=== PATIENT | male | born 1945 | race Caucasian/White ===

== ENCOUNTER 2018-01-10 04:35 | Emergency (ER) | payer MEDICARE ==
[2018-01-10] MEDS ORDERED: DIPH,PERTUS(ACELL)TETVAC-LF 0.5 ML VIAL IM ONE (04:38)
[2018-01-10 04:48] VITALS: TEMP 97.9
[2018-01-10 04:58] LABS: Glucose,Whole Blood 137 mg/dL (75-99)
[2018-01-10 05:23] LABS: Basophils % (A) 0 %; Eosinophils # (A) 0.2 k/uL (0-0.7); Eosinophils % (A) 2 %; HCT 35.9 % (39.0-53.0); HGB 11.7 gm/dL (13.0-17.5); Lymphocytes # (A) 2.4 k/uL (1.0-4.8); Lymphocytes % (A) 25 %; MCH 38.8 pg (25.0-35.0); MCHC 32.7 g/dL (31.0-37.0); MCV 118.7 fL (80.0-100.0); Macrocytosis Marked; Mean Platelet Volume 6.9; Monocytes # (A) 0.4 k/uL (0-1.0); Monocytes % (A) 4 %; Neutrophils # (A) 6.6 k/uL (1.3-7.7); Neutrophils % (A) 68 %; Platelet Count 170 k/uL (150-450); RBC 3.02 m/uL (4.30-5.90); RDW 14.5 % (11.5-15.5); WBC 9.7 k/uL (3.8-10.6)
[2018-01-10 05:34] LABS: INR 1.1 (<1.2); Partial Thromboplastin Time 25.2 sec (22.0-30.0)
[2018-01-10 05:37] LABS: ALT 38 U/L (21-72); AST 49 U/L (17-59); Alkaline Phosphatase 118 U/L (38-126); Anion Gap 12 mmol/L; Blood Urea Nitrogen 5 mg/dL (9-20); Calcium 8.1 mg/dL (8.4-10.2); Carbon Dioxide 19 mmol/L (22-30); Chloride 104 mmol/L (98-107); Glucose 121 mg/dL (74-99); Potassium 3.4 mmol/L (3.5-5.1); Sodium 135 mmol/L (137-145); Total Bilirubin 0.9 mg/dL (0.2-1.3); Total Protein 5.5 g/dL (6.3-8.2)
[2018-01-10 05:50] LABS: Alcohol 211 mg/dL
[2018-01-10 06:08] VITALS: RESP 18
--- NOTE | 2018-01-10 06:09 | CT ---
EXAM: CT Head Without Intravenous Contrast CLINICAL HISTORY: CT Reason: trauma TECHNIQUE: Axial computed tomography images of the head/brain without intravenous contrast. CTDI is 18.4 mGy and DLP is 306.9 mGy-cm. This CT exam was performed using one or more of the following dose reduction techniques: automated exposure control, adjustment of the mA and/or kV according to patient size, and/or use of iterative reconstruction technique. COMPARISON: 03/21/16 FINDINGS: No intracranial hemorrhage, abnormal intra- or extra-axial collections or parenchymal lesions are seen. There are involutional changes with prominence of the sulci, basal cisterns and ventricles. Scattered white matter hypoattenuations are present, likely from small vessel disease. The clemente-white differentiation is preserved. No evidence of mass effect, midline shift, or edema. The osseous structures are unremarkable. The visualized portions of the paranasal sinuses are clear. IMPRESSION: 1. No acute intracranial process. 2. Involutional changes with small vessel disease. EXAM: CT Cervical Spine Without Intravenous Contrast CLINICAL HISTORY: Reason: trauma TECHNIQUE: Axial computed tomography images of the cervical spine without intravenous contrast. CTDI is 57.4 mGy and DLP is 983 mGy-cm. This CT exam was performed using one or more of the following dose reduction techniques: automated exposure control, adjustment of the mA and/or kV according to patient size, and/or use of iterative reconstruction technique. COMPARISON: 03/21/16 FINDINGS: No fracture or subluxations are noted. The vertebral body heights and alignment are preserved. No prevertebral soft tissue swelling. Note is made of multilevel cervical spondylosis with varying degrees of central canal and foramina stenoses. IMPRESSION: 1. No cervical fractures. 2. No change in alignment compared to prior study
--- NOTE | 2018-01-10 06:12 | XR ---
EXAM: XR Chest, 1 View CLINICAL HISTORY: Reason: trauma TECHNIQUE: Frontal view of the chest. COMPARISON: 04/09/14 FINDINGS: Lungs: Unremarkable. No consolidation. Pleural space: Unremarkable. No pneumothorax. Heart: Unremarkable. No cardiomegaly. Mediastinum: Unremarkable. Bones/joints: Degenerative changes again noted of the glenohumeral joints bilaterally IMPRESSION: Normal chest x-ray. No change from prior study
--- NOTE | 2018-01-10 06:14 | XR ---
EXAM: XR Pelvis, 1 or 2 Views CLINICAL HISTORY: Reason: Trauma TECHNIQUE: Frontal view of the pelvis. COMPARISON: No relevant prior studies available. FINDINGS: Bones/joints: Hip arthroplasty in the right with good alignment no evidence for loosening. Degenerative changes and loss of normal joint space remodeling of the femoral head on the left. No fracture identified. Soft tissues: Unremarkable. IMPRESSION: No evidence for fracture seen on this study
[2018-01-10 06:23] LABS: Anisocytosis (M) Present
[2018-01-10 06:24] LABS: Polychromasia Present
--- NOTE | 2018-01-10 06:38 | ED ---
General Adult HPI - General Chief complaint: Fall Stated complaint: FALL,LACERATION Time Seen by Provider: 01/10/18 04:38 Source: patient, RN notes reviewed, old records reviewed Mode of arrival: EMS Limitations: no limitations - History of Present Illness Initial comments: 72-year-old male presents status post fall with head injury and scalp laceration. No loss consciousness. Patient is not on any blood thinners. He is not on any daily medications at this time. According to EMS there was significant blood loss from scalp laceration. Bleeding was controlled with compressive dressing. Patient denies any neck or back pain. No chest pain or abdominal pain. Denies any preceding symptoms prior to the fall, no palpitations or chest pain. No preceding nausea vomiting or diarrhea. Patient has no complaints other than some headache at the site of scalp laceration and head injury. - Related Data Home Medications Medication Instructions Recorded Confirmed Lisinopril [Zestril] 20 mg PO DAILY 10/04/13 03/21/16 Allergies Allergy/AdvReac Type Severity Reaction Status Date / Time No Known Allergies Allergy Verified 03/21/16 13:25 Review of Systems ROS Statement: Those systems with pertinent positive or pertinent negative responses have been documented in the HPI. ROS Other: All systems not noted in ROS Statement are negative. Past Medical History Past Medical History: CVA/TIA, Hypertension, Osteoarthritis (OA), Sleep Apnea/ CPAP/BIPAP Additional Past Medical History / Comment(s): HX TIA,HX KIDNEY STONE, NO CPAP FOR SLEEP APNEA, History of Any Multi-Drug Resistant Organisms: None Reported Past Surgical History: Tonsillectomy Additional Past Surgical History / Comment(s): LITHOTRIPSY, RT KNEE ARTHROSCOPY Past Anesthesia/Blood Transfusion Reactions: No Reported Reaction Past Psychological History: No Psychological Hx Reported Smoking Status: Never smoker Past Alcohol Use History: Occasional Past Drug Use History: None Reported - Past Family History Mother Family Medical History: Cancer General Exam Limitations: no limitations General appearance: alert, in no apparent distress Head exam: Present: normocephalic, other (4 cm scalp laceration.) ENT exam: Present: normal exam Neck exam: Present: normal inspection, full ROM. Absent: tenderness, meningismus Respiratory exam: Present: normal lung sounds bilaterally. Absent: respiratory distress, wheezes, rales Cardiovascular Exam: Present: regular rate, normal rhythm GI/Abdominal exam: Present: soft. Absent: distended, tenderness Extremities exam: Present: normal inspection, normal capillary refill. Absent: pedal edema Back exam: Present: normal inspection, full ROM. Absent: tenderness Neurological exam: Present: alert, oriented X3, CN II-XII intact. Absent: motor sensory deficit Psychiatric exam: Present: normal affect, normal mood Skin exam: Present: warm, dry. Absent: cyanosis, diaphoretic Course Vital Signs 01/10/18 01/10/18 04:44 06:00 Temperature 97.9 F Pulse Rate 93 91 Respiratory 16 18 Rate Blood Pressure 117/62 117/62 O2 Sat by Pulse 96 95 Oximetry EKG Findings - EKG Comments: EKG Findings:: EKG normal sinus rhythm, rate of 88, MI interval 176, QRS duration 68, QTC 433, no ST segment elevation or depression Procedures - Laceration Laceration #1 Consent Obtained: verbal consent Time Out Performed: Yes Indication: laceration Site: scalp Size (cm): 4 Description: linear, clean Pre-repair: irrigated extensively, deep structures intact Type of Sutures: other (goldy) Size of Sutures: other (Goldy) Number of Sutures: 9 Technique: simple, interrupted Patient Tolerated Procedure: well Medical Decision Making - Medical Decision Making 72-year-old male presents with head injury, scalp laceration and trip and fall. Scalp laceration is repaired with 9 goldy. No bleeding. Patient is clinically intoxicated, serum alcohol 211, this is likely the reason for fall. Head CT is obtained, there is chronic changes with no acute intracranial hemorrhage. CT cervical spine is negative for fracture or subluxation. X-ray of the chest and pelvis are obtained which are negative for any acute cardiopulmonary process or fracture dislocation in the pelvis. Normal white blood cell count, stable hemoglobin. Patient will return for staple removal in approximately 14 days. He will be discharged home at this time, he is calling a friend for a ride. He was brought in by EMS and is not driving. - Lab Data Result diagrams: 01/10/18 05:00 01/10/18 05:00 Lab Results 01/10/18 01/10/18 01/10/18 Range/Units 04:46 05:00 05:00 WBC 9.7 (3.8-10.6) k/uL RBC 3.02 L (4.30-5.90) m/uL Hgb 11.7 L (13.0-17.5) gm/dL Hct 35.9 L (39.0-53.0) % MCV 118.7 H (80.0-100.0) fL MCH 38.8 H (25.0-35.0) pg MCHC 32.7 (31.0-37.0) g/dL RDW 14.5 (11.5-15.5) % Plt Count 170 (150-450) k/uL Neutrophils % 68 % Lymphocytes % 25 % Monocytes % 4 % Eosinophils % 2 % Basophils % 0 % Neutrophils # 6.6 (1.3-7.7) k/uL Lymphocytes # 2.4 (1.0-4.8) k/uL Monocytes # 0.4 (0-1.0) k/uL Eosinophils # 0.2 (0-0.7) k/uL Basophils # 0.0 (0-0.2) k/uL Manual Slide Review Performed Polychromasia Present Anisocytosis (manual) Present Macrocytosis Marked PT (9.0-12.0) sec INR (<1.2) APTT (22.0-30.0) sec Sodium 135 L (137-145) mmol/L Potassium 3.4 L (3.5-5.1) mmol/L Chloride 104 (98-107) mmol/L Carbon Dioxide 19 L (22-30) mmol/L Anion Gap 12 mmol/L BUN 5 L (9-20) mg/dL Creatinine 0.60 L (0.66-1.25) mg/dL Est GFR (CKD-EPI)AfAm >90 (>60 ml/min/1.73 sqM) Est GFR (CKD-EPI)NonAf >90 (>60 ml/min/1.73 sqM) Glucose 121 H (74-99) mg/dL POC Glucose (mg/dL) 137 H (75-99) mg/dL POC Glu Critical Care Physician ID Chito Rucker Calcium 8.1 L (8.4-10.2) mg/dL Total Bilirubin 0.9 (0.2-1.3) mg/dL AST 49 (17-59) U/L ALT 38 (21-72) U/L Alkaline Phosphatase 118 (38-126) U/L Troponin I (0.000-0.034) ng/mL Total Protein 5.5 L (6.3-8.2) g/dL Albumin 3.0 L (3.5-5.0) g/dL Serum Alcohol 211 mg/dL Blood Type Blood Type Recheck Antibody Screen Spec Expiration Date 01/10/18 01/10/18 01/10/18 Range/Units 05:00 05:00 05:15 WBC (3.8-10.6) k/uL RBC (4.30-5.90) m/uL Hgb (13.0-17.5) gm/dL Hct (39.0-53.0) % MCV (80.0-100.0) fL MCH (25.0-35.0) pg MCHC (31.0-37.0) g/dL RDW (11.5-15.5) % Plt Count (150-450) k/uL Neutrophils % % Lymphocytes % % Monocytes % % Eosinophils % % Basophils % % Neutrophils # (1.3-7.7) k/uL Lymphocytes # (1.0-4.8) k/uL Monocytes # (0-1.0) k/uL Eosinophils # (0-0.7) k/uL Basophils # (0-0.2) k/uL Manual Slide Review Polychromasia Anisocytosis (manual) Macrocytosis PT 11.0 (9.0-12.0) sec INR 1.1 (<1.2) APTT 25.2 (22.0-30.0) sec Sodium (137-145) mmol/L Potassium (3.5-5.1) mmol/L Chloride (98-107) mmol/L Carbon Dioxide (22-30) mmol/L Anion Gap mmol/L BUN (9-20) mg/dL Creatinine (0.66-1.25) mg/dL Est GFR (CKD-EPI)AfAm (>60 ml/min/1.73 sqM) Est GFR (CKD-EPI)NonAf (>60 ml/min/1.73 sqM) Glucose (74-99) mg/dL POC Glucose (mg/dL) (75-99) mg/dL POC Glu Critical Care Physician ID Calcium (8.4-10.2) mg/dL Total Bilirubin (0.2-1.3) mg/dL AST (17-59) U/L ALT (21-72) U/L Alkaline Phosphatase (38-126) U/L Troponin I <0.012 (0.000-0.034) ng/mL Total Protein (6.3-8.2) g/dL Albumin (3.5-5.0) g/dL Serum Alcohol mg/dL Blood Type O Positive Blood Type Recheck No Antibody Screen NEGATIVE Spec Expiration Date 01/13/2018 - 2315 Disposition Clinical Impression: Fall, Closed head injury, Scalp laceration Disposition: HOME SELF-CARE Condition: Fair Instructions: Staple Care (ED), Concussion (ED), Laceration (ED) Is patient prescribed a controlled substance at d/c from ED?: No Referrals: Shell Salamanca MD [Primary Care Provider] - 1-2 days Time of Disposition: 06:58
[2018-01-10 07:44] VITALS: BP 116/60; PULSE 82
== END 2018-01-10 07:55 | disposition home or self-care (01) ==
LOC: EC 04:35
DX: S01.01XA Laceration without foreign body of scalp, initial encounter (principal); F10.120 Alcohol abuse with intoxication, uncomplicated; I10 Essential (primary) hypertension; Z86.73 Personal history of transient ischemic attack (TIA), and cerebral infarction without residual deficits; Z23 Encounter for immunization; Z98.890 Other specified postprocedural states; Z79.899 Other long term (current) drug therapy; W01.0XXA Fall on same level from slipping, tripping and stumbling without subsequent striking against object, initial encounter; Y92.009 Unspecified place in unspecified non-institutional (private) residence as the place of occurrence of the external cause; Y90.7 Blood alcohol level of 200-239 mg/100 ml
CPT/HCPCS: 36415; 93005; 86900; 86901; 80053; 84484; 85025; 85610; 85730; 86850; 72170; 71045; 72125; 70450; 90715; 99284; 12002; 90471; G0480; 80320

== ENCOUNTER → 2018-11-21 | Outpatient (CLI) | payer MEDICARE ==
[2018-11-21 11:34] LABS: African American GFR (CKD) >90 (>60 ml/min/1.73 sqM); Blood Urea Nitrogen 10 mg/dL (9-20)
--- NOTE | 2018-11-21 13:35 | CT ---
EXAMINATION TYPE: CT abdomen pelvis w con DATE OF EXAM: 11/21/2018 COMPARISON: 06/15/2013 HISTORY: Abdominal distention and edema. CT DLP: 1945.5 mGycm Automated exposure control for dose reduction was used. CONTRAST: CT scan of the abdomen pelvis is performed with IV Contrast, patient injected with 100 mL of Isovue M 300. FINDINGS- LUNG BASES-there is a small right pleural effusion and tiny left pleural effusion with subsegmental c onsolidation likely in the basis of compressive atelectasis.. LIVER/GB-liver somewhat nodular and heterogeneous correlate for hepatocellular disease. Cholelithiasi s. PANCREAS- No gross abnormality is seen. Fat attenuation is noted in the region of the pancreatic hea d likely representing a lipoma measuring -80 Hounsfield units and retrospectively stable from the tobin or exam. Measures 2.6 cm. SPLEEN- No gross abnormality is seen. ADRENALS-there is an indeterminate 1.7 cm right adrenal nodule stable dating back to 2013 and therefo re likely related to adenoma.. KIDNEYS/BLADDER- no hydronephrosis or nephrolithiasis. Cortical thinning is noted. BOWEL-bowel gas pattern nonspecific. Diverticulosis of the colon noted.. LYMPH NODES- No greater than 1cm abdominal or pelvic lymph nodes areappreciated. OSSEOUS STRUCTURES-degenerative change of the spine and arthropathy of the hips. Grade 1 anterolisthe sis L4 on L5. Multilevel facet arthropathy noted. Chronic rib deformities involving the right rib cag e anteriorly suggest remote trauma. OTHER- aorta of normal caliber with atherosclerotic changes. There is a moderate amount of ascites. Mild diffuse subcutaneous edema noted. IMPRESSION- 1. Moderate amount of ascites correlate for hepatocellular disease or chronic medical renal disease. 2. Colonic diverticulosis. 3. Small right and tiny left pleural effusion with suspected compressive atelectasis. 4. Cholelithiasis. Recommend ultrasound to assess gallbladder. 5. Cortical thinning of the kidneys correlate for chronic medical renal disease.
== END | disposition home or self-care (01) ==
LOC: RADCTMAIN 10:54
PROVIDERS: ATTEND Family Medicine
DX: K80.20 Calculus of gallbladder without cholecystitis without obstruction (principal); K57.30 Diverticulosis of large intestine without perforation or abscess without bleeding; R18.8 Other ascites; R06.00 Dyspnea, unspecified
CPT/HCPCS: 82565; 84520; 74177; 36415; Q9967

== ENCOUNTER 2018-12-05 16:31 | Inpatient (IN) | payer MEDICARE ==
[2018-12-05] MEDS ORDERED: SODIUM CHLORIDE 0.9% 500 ML 500 ML IV STA (18:26)
[2018-12-05] MEDS ORDERED: SODIUM CHLORIDE 0.9% 1,000 ML IV ONE (18:26)
[2018-12-05] MEDS ORDERED: SODIUM CHLORIDE 0.9% 1,000 ML IV STA (18:26)
--- NOTE | 2018-12-05 18:26 | ED ---
Recheck HPI - General Chief Complaint: Recheck/Abnormal Lab/Rx Stated Complaint: abn labs post paracentesis Time Seen by Provider: 12/05/18 16:52 Source: patient, RN notes reviewed, old records reviewed Mode of arrival: ambulatory - History of Present Illness Initial Comments: This is a 73-year-old male the ER for evaluation presents today for evaluation of abnormal outpatient lab test. A she does admit to significant swelling also paracentesis, patient with a paracentesis had lab values trauma for significant normal. He denies current complaints. MD Complaint: abnormal lab (Significant abnormal lab values) -: unknown Returns Today for: Called Because of Abnormal Lab/Test Symptoms Since Prior Visit: no new symptoms Context: called for abnormal lab result Associated Symptoms: none - Related Data Home Medications Medication Instructions Recorded Confirmed Levothyroxine Sodium [Synthroid] 50 mcg PO DAILY 11/23/18 12/05/18 Furosemide [Lasix] 60 mg PO BID 12/05/18 12/05/18 Loperamide HCl [Imodium A-D] 2 - 4 mg PO QID PRN 12/05/18 12/05/18 Ondansetron HCl [Zofran] 8 mg PO Q8H PRN 12/05/18 12/05/18 Spironolactone 100 mg PO DAILY 12/05/18 12/05/18 Allergies Allergy/AdvReac Type Severity Reaction Status Date / Time No Known Allergies Allergy Verified 12/05/18 17:40 Review of Systems ROS Statement: Those systems with pertinent positive or pertinent negative responses have been documented in the HPI. ROS Other: All systems not noted in ROS Statement are negative. Past Medical History Past Medical History: CVA/TIA, Hypertension, Osteoarthritis (OA), Sleep Apnea/CPAP/BIPAP, Thyroid Disorder Additional Past Medical History / Comment(s): HX TIA,HX KIDNEY STONE, NO CPAP FOR SLEEP APNEA, History of Any Multi-Drug Resistant Organisms: None Reported Past Surgical History: Tonsillectomy Additional Past Surgical History / Comment(s): LITHOTRIPSY, RT KNEE ARTHROSCOPY, right hip replacement, paracentesis Past Anesthesia/Blood Transfusion Reactions: No Reported Reaction Past Psychological History: No Psychological Hx Reported Smoking Status: Never smoker Past Alcohol Use History: Occasional Past Drug Use History: None Reported - Past Family History Mother Family Medical History: Cancer Additional Family Medical History / Comment(s): colon General Exam - General Exam Comments Initial Comments: Anasarca, ascites General appearance: alert, in no apparent distress Head exam: Present: atraumatic, normocephalic, normal inspection Eye exam: Present: normal appearance, PERRL, EOMI. Absent: scleral icterus, conjunctival injection, periorbital swelling ENT exam: Present: normal exam, mucous membranes moist Neck exam: Present: normal inspection. Absent: tenderness, meningismus, lymphadenopathy Respiratory exam: Present: normal lung sounds bilaterally. Absent: respiratory distress, wheezes, rales, rhonchi, stridor Cardiovascular Exam: Present: regular rate, normal rhythm, normal heart sounds. Absent: systolic murmur, diastolic murmur, rubs, gallop, clicks GI/Abdominal exam: Present: soft, normal bowel sounds. Absent: distended, tenderness, guarding, rebound, rigid Extremities exam: Present: normal inspection, full ROM, normal capillary refill. Absent: tenderness, pedal edema, joint swelling, calf tenderness Back exam: Present: normal inspection Neurological exam: Present: alert, oriented X3, CN II-XII intact Psychiatric exam: Present: normal affect, normal mood Skin exam: Present: warm, dry, intact, normal color. Absent: rash Course Vital Signs 12/05/18 16:55 Temperature 97.5 F L Pulse Rate 88 Respiratory 19 Rate Blood Pressure 105/55 O2 Sat by Pulse 100 Oximetry - Reevaluation(s) Reevaluation #1: 12/05/18 18:25 record including prior lab values are reviewed Reevaluation #2: 12/05/18 18:25 Patient remains asymptomatic Medical Decision Making - Medical Decision Making 73 male the ER for evaluation abnormal lab values, patient has significant anasarca and ascites and renal failure. We'll admit for adequate hydration, nephrology evaluation Disposition Clinical Impression: Ascites, Acute renal failure Disposition: ADMITTED IP TO THIS HOSP Condition: Fair Is patient prescribed a controlled substance at d/c from ED?: No Referrals: Shell Salamanca MD [Primary Care Provider] - 1-2 days
[2018-12-06 06:30] VITALS: BMI 29.0
[2018-12-06] MEDS ORDERED: ONDANSETRON 4 MG TAB PO PRN (08:13)
[2018-12-06] MEDS ORDERED: LOPERAMIDE 2 MG CAP PO PRN (08:13)
[2018-12-06] MEDS ORDERED: ENOXAPARIN 40 MG/0.4 ML SYRINGE SQ SCH (09:00)
--- NOTE | 2018-12-06 09:53 | P.NPCON ---
History of Present Illness - Reason for Consult acute renal failure - History of Present Illness Reason for consultation: Acute kidney injury History of present illness: Patient is a 73-year-old male seen in renal consultation for acute kidney injury. Patient's baseline creatinine is near 1. Patient went for a paracentesis yesterday and had about 8 L drained. He also had blood work done which revealed patient was in acute renal failure and was advised to go to the hospital. His creatinine was up to 4.26. No proteinuria noted on UA. Patient states he's had progressive swelling in his abdomen as well as lower extremities does been worsening over the last few weeks. He was started on diuretics by his primary care physician and states that his dose of Lasix was increased about a week ago. He denies any hematuria or dysuria. Denies use of nonsteroidals. No vomiting or diarrhea. Oral intake has been fair. No history of diabetes. Denies family history of renal disease. Patient did receive albumin with paracentesis yesterday but I'm not sure as to the dose. Patient did receive 1 L fluid bolus of normal saline and is currently maintained on normal saline at 50 mL an hour. Labs from this morning are pending. Vital signs are stable. General: The patient appeared well nourished and normally developed. HEENT: Head exam is unremarkable. Neck is without jugular venous distension. LUNGS: Lungs are clear to auscultation and percussion. Breath sounds decreased. HEART: Rate and Rhythm are regular. First and second heart sounds normal. No murmurs, rubs or gallops. ABDOMEN: Abdominal exam reveals normal bowel sounds. Distention noted. EXTREMITITES: 2+ edema. Past Medical History Past Medical History: CVA/TIA, Hypertension, Osteoarthritis (OA), Sleep Apnea/CPAP/BIPAP, Thyroid Disorder Additional Past Medical History / Comment(s): HX TIA,HX KIDNEY STONE, NO CPAP FOR SLEEP APNEA, History of Any Multi-Drug Resistant Organisms: None Reported Past Surgical History: Tonsillectomy Additional Past Surgical History / Comment(s): LITHOTRIPSY, RT KNEE ARTHROSCOPY, right hip replacement, paracentesis Past Anesthesia/Blood Transfusion Reactions: No Reported Reaction Past Psychological History: No Psychological Hx Reported Smoking Status: Never smoker Past Alcohol Use History: Occasional Past Drug Use History: None Reported - Past Family History Mother Family Medical History: Cancer Additional Family Medical History / Comment(s): colon Medications and Allergies Home Medications Medication Instructions Recorded Confirmed Type Levothyroxine Sodium [Synthroid] 50 mcg PO DAILY 11/23/18 12/05/18 History Furosemide [Lasix] 60 mg PO BID 12/05/18 12/05/18 History Loperamide HCl [Imodium A-D] 2 - 4 mg PO QID PRN 12/05/18 12/05/18 History Ondansetron HCl [Zofran] 8 mg PO Q8H PRN 12/05/18 12/05/18 History Spironolactone 100 mg PO DAILY 12/05/18 12/05/18 History Allergies Allergy/AdvReac Type Severity Reaction Status Date / Time No Known Allergies Allergy Verified 12/05/18 17:40 Physical Exam Vitals: Vital Signs Temp Pulse Pulse Resp BP BP Pulse Ox 12/06/18 04:32 97.4 F L 72 18 105/65 94 L 12/06/18 00:00 18 12/05/18 23:17 97.9 F 83 18 115/60 97 12/05/18 20:57 98.1 F 71 20 109/58 97 12/05/18 20:00 77 22 100/57 96 12/05/18 19:00 76 22 101/57 99 12/05/18 18:41 78 18 111/54 98 12/05/18 16:55 97.5 F L 88 19 105/55 100 Intake and Output 12/05/18 12/06/18 12/06/18 22:59 06:59 14:59 Intake Total 200 Balance 200 Intake: Intake, IV Titration 200 Amount Sodium Chloride 0.9% 1, 200 000 ml @ 100 mls/hr IV . Q10H ONE Rx#:[id number] Other: Voiding Method Toilet # Voids 1 # Bowel Movements 1 3 Weight 84.141 kg Assessment and Plan Plan: Assessment: 1. Acute kidney injury mostly prerenal secondary to diuresis and large volume paracentesis. Creatinine 4.26 as of yesterday. Baseline creatinine near 1. No evidence of hydronephrosis noted on CAT scan done on November 21, 2018. No proteinuria on UA. 2. Ascites. Status post paracentesis on December 05 for nearly 8 L drained. ?Etiology liver disease. 3. Volume overload. 4. Metabolic acidosis secondary to acute kidney injury. 5. History of nephrolithiasis status post lithotripsy in 2016. Plan: Hep-Lock IV fluids. Start IV Lasix 60 mg twice daily. IV albumin 25 g 2 doses today. Strict I's and O's. Check renal ultrasound. Avoid nephrotoxins. Repeat electrolytes in the morning. Thank you for the consultation. I will continue to follow the patient with you during his hospital stay.
[2018-12-06] MEDS: LEVOTHYROXINE 50 MCG TAB PO SCH (09:55)
[2018-12-06] MEDS: FAMOTIDINE 20 MG TAB PO SCH (09:55)
--- NOTE | 2018-12-06 10:00 | P.HPIM ---
History of Present Illness H&P Date: 12/06/18 This is a 73-year-old male patient of Dr. Salamanca. Patient presented yesterday 12/05/2018 for planned paracentesis was found to have abnormal lab. Patient has a history of ascites and underwent paracentesis yesterday with 8.6 L off. Patient's creatinine was found to be significantly elevated at 4.26 which patient was 2.4 on 11/30/2018. Blood also elevated at 42. Patient reports he's had decreased appetite over the past 4 weeks along with some nausea. Patient denies recent illness or fevers. Patient reports adequate urine output. Patient has a past medical history of CVA, hypertension, osteoarthritis, sleep apnea and thyroid disorder. Patient noted to have increased edema to lower ext remities and right upper extremity venous Doppler will be ordered to rule out DVT. Nephrology services consulted for acute kidney injury. Patient started on IV Lasix per nephrology. GI services also consulted for recent paracentesis due to ascites. This time patient denies chest pain or shortness of breath. Patient denies nausea vomiting or diarrhea. Patient denies any urinary burning or frequency. Review of Systems Please refer to HPI otherwise unremarkable Past Medical History Past Medical History: CVA/TIA, Hypertension, Osteoarthritis (OA), Sleep Apnea/CPAP/BIPAP, Thyroid Disorder Additional Past Medical History / Comment(s): HX TIA,HX KIDNEY STONE, NO CPAP FOR SLEEP APNEA, History of Any Multi-Drug Resistant Organisms: None Reported Past Surgical History: Tonsillectomy Additional Past Surgical History / Comment(s): LITHOTRIPSY, RT KNEE ARTHROSCOPY, right hip replacement, paracentesis Past Anesthesia/Blood Transfusion Reactions: No Reported Reaction Past Psychological History: No Psychological Hx Reported Smoking Status: Never smoker Past Alcohol Use History: Occasional Past Drug Use History: None Reported - Past Family History Mother Family Medical History: Cancer Additional Family Medical History / Comment(s): colon Medications and Allergies Home Medications Medication Instructions Recorded Confirmed Type Levothyroxine Sodium [Synthroid] 50 mcg PO DAILY 11/23/18 12/05/18 History Furosemide [Lasix] 60 mg PO BID 12/05/18 12/05/18 History Loperamide HCl [Imodium A-D] 2 - 4 mg PO QID PRN 12/05/18 12/05/18 History Ondansetron HCl [Zofran] 8 mg PO Q8H PRN 12/05/18 12/05/18 History Spironolactone 100 mg PO DAILY 12/05/18 12/05/18 History Allergies Allergy/AdvReac Type Severity Reaction Status Date / Time No Known Allergies Allergy Verified 12/05/18 17:40 Physical Exam Vitals: Vital Signs Temp Pulse Pulse Resp BP BP Pulse Ox 12/06/18 04:32 97.4 F L 72 18 105/65 94 L 12/06/18 00:00 18 12/05/18 23:17 97.9 F 83 18 115/60 97 12/05/18 20:57 98.1 F 71 20 109/58 97 12/05/18 20:00 77 22 100/57 96 12/05/18 19:00 76 22 101/57 99 12/05/18 18:41 78 18 111/54 98 12/05/18 16:55 97.5 F L 88 19 105/55 100 Intake and Output 12/05/18 12/06/18 12/06/18 22:59 06:59 14:59 Intake Total 200 Balance 200 Intake: Intake, IV Titration 200 Amount Sodium Chloride 0.9% 1, 200 000 ml @ 100 mls/hr IV . Q10H ONE Rx#:[id number] Other: Voiding Method Toilet # Voids 1 # Bowel Movements 1 3 Weight 84.141 kg Head normocephalic Neck supple Lungs clear to auscultation bilaterally no wheezing or crackles Heart regular rate and rhythm S1-S2, no rub or gallop Abdomen is soft and rounded nontender to palpation Extremities +2 nonpitting edema bilateral lower extremities. +1 edema to right upper extremity with erythema Neuro alert and orientated to 3 Thrombosis Risk Factor Assmnt - Choose All That Apply Any of the Below Risk Factors Present?: Yes Each Factor Represents 1 point: Obesity (BMI >25), Swollen legs (current) Other Risk Factors: Yes Each Risk Factor Represents 2 Points: Age 61-74 years Thrombosis Risk Factor Assessment Total Risk Factor Score: 4 Thrombosis Risk Factor Assessment Level: Moderate Risk Assessment and Plan Assessment: 1. Acute kidney injury. Creatinine elevated at 4.26 and bun 42. Baseline creatinine appears to be 1. Nephrology services have been consulted we'll continue to monitor. Per nephrology Lasix 60 mg twice daily has been ordered. IV albumin 25 g 2 doses ordered. Renal ultrasound ordered. Home medications of Lasix and Aldactone on hold 2. Abdominal ascites with recent paracentesis. Patient underwent paracentesis on 12/05/2018 with 8.7 L removed. GI services have been consulted 3. Lower extremity edema with erythema. Will order venous Doppler to rule out DVT 4. History of nephrolithiasis status post lithotripsy in 2016 5. History of essential hypertension 6. History of CVA 7. History of sleep apnea 8. History of hypothyroidism. Home meds resumed DVT prophylaxis Lovenox. GI prophylaxis Protonix Nephrology GI service consulted Repeat labs ordered Renal ultrasound ordered Venous Doppler ordered Time with Patient: Greater than 30 (Greater than 60% of the total time spent in counseling and coordination of care. I performed an examination of the patient and discussed their management with the Nurse Practitioner. I have reviewed the Nurse Practitioner's notes and agree with the documented findings and plan of care)
[2018-12-06 10:21] LABS: ALT 31 U/L (21-72); AST 63 U/L (17-59); African American GFR (CKD) 21 (>60 ml/min/1.73 sqM); Albumin 2.1 g/dL (3.5-5.0); Alkaline Phosphatase 157 U/L (38-126); Amylase <30 U/L (30-110); Anion Gap 9 mmol/L; Blood Urea Nitrogen 39 mg/dL (9-20); Calcium 7.7 mg/dL (8.4-10.2); Carbon Dioxide 19 mmol/L (22-30); Chloride 106 mmol/L (98-107); Glucose 105 mg/dL (74-99); Non-African American GFR(CKD) 18 (>60 ml/min/1.73 sqM); Sodium 134 mmol/L (137-145); Total Bilirubin 2.2 mg/dL (0.2-1.3); Total Protein 5.2 g/dL (6.3-8.2)
[2018-12-06 10:26] LABS: Potassium 2.7 mmol/L (3.5-5.1)
[2018-12-06] MEDS ORDERED: Potassium Replacement Protocol 1 EACH MISC MISCELLANE PRN (10:29)
[2018-12-06 10:45] LABS: Basophils % (A) 0 %; Eosinophils # (A) 0.2 k/uL (0-0.7); Eosinophils % (A) 1 %; HGB 11.5 gm/dL (13.0-17.5); Lymphocytes # (A) 1.2 k/uL (1.0-4.8); Lymphocytes % (A) 7 %; MCH 36.6 pg (25.0-35.0); MCHC 32.8 g/dL (31.0-37.0); MCV 111.5 fL (80.0-100.0); Macrocytosis Marked; Mean Platelet Volume 7.7; Monocytes # (A) 0.6 k/uL (0-1.0); Monocytes % (A) 4 %; Neutrophils # (A) 14.5 k/uL (1.3-7.7); Neutrophils % (A) 87 %; Platelet Count 114 k/uL (150-450); RBC 3.14 m/uL (4.30-5.90); RDW 13.1 % (11.5-15.5); WBC 16.6 k/uL (3.8-10.6)
[2018-12-06] MEDS: ALBUMIN HUMAN 25% 50 ML in EMPTY BAG 1 BAG IVPB SCH ×2 (11:34→21:38)
[2018-12-06] MEDS: FUROSEMIDE 10 MG/ML 10 ML VIAL IV SCH ×2 (11:37→21:38)
[2018-12-06] MEDS: POTASSIUM CHLORIDE ER 20 MEQ TAB.ER PO SCH ×3 (11:41→14:29)
[2018-12-06 12:39] LABS: Poikilocytosis (M) Present
--- NOTE | 2018-12-06 12:52 | US ---
EXAMINATION TYPE: US venous doppler duplex UE RT DATE OF EXAM: 12/06/2018 COMPARISON: NONE CLINICAL HISTORY: increased edema and erythema. Patient's daughter stated poor IV perfusion x days, t hen extravasation yesterday SIDE PERFORMED: right Right Arm: Negative for DVT. Right arm is positive for SVT in small diameter upper Basilic Vein as no compression or color flow is present as visualized. Edema/fluid areas are seen in multiple areas of right arm and skin redness and swelling. Grayscale, color doppler, spectral doppler imaging performed of the deep veins of the bilateral lower extremities. There is normal flow, compressibility, vascular waveforms. IMPRESSION: No ultrasound evidence for acute DVT in the right upper extremity. Moderate diffuse subcu taneous edema seen at level of forearm. There is acute superficial venous thrombosis involving the ri ght basilic vein confirmed.
--- NOTE | 2018-12-06 12:54 | US ---
EXAMINATION TYPE: US venous doppler duplex LE BI DATE OF EXAM: 12/06/2018 12:02 PM COMPARISON: Right lower extremity venous ultrasound April 11, 2014 CLINICAL HISTORY: increase swelling and redness, ascites SIDE PERFORMED: bilateral TECHNIQUE: The lower extremity deep venous system is examined utilizing real time linear array sonog dustin with graded compression, doppler sonography and color-flow sonography. VESSELS IMAGED: Common Femoral Vein Deep Femoral Vein Greater Saphenous Vein * Femoral Vein Popliteal Vein Small Saphenous Vein * Proximal Calf Veins: left proximal calf veins not seen due to edema present and patient's non relaxed leg position (* superficial vessels) Right Leg: Negative for DVT Left Leg: Negative for DVT Grayscale, color doppler, spectral doppler imaging performed of the deep veins of the bilateral lower extremities. There is normal flow, compressibility, vascular waveforms. IMPRESSION: No ultrasound evidence for acute DVT in either lower extremity. Fairly moderate subcutan eous edema is seen bilaterally below the level of the knees.
--- NOTE | 2018-12-06 13:37 | US ---
EXAMINATION TYPE: US kidneys/renal and bladder DATE OF EXAM: 12/06/2018 COMPARISON: CT 02/02/2019 CLINICAL HISTORY: liz. Cortical thinning is noted by CT; ascites EXAM MEASUREMENTS: Right Kidney: 8.9 x 5.1 x 4.4 cm Left Kidney: 11.5 x 6.6 x 6.3 cm Post Void Residual Volume: not assessed as patient has indwelling bladder catheter. Right Kidney: No hydronephrosis or masses seen; small for size Left Kidney: No hydronephrosis or masses seen; crescent shaped hypoechoic area adjacent to lower irina ex noted as sonographic "sweat sign" suggestive of renal failure. Bladder: indwelling urinary bladder catheter is present. Incidental findings of shadowing gallstone(s) are noted with abnormally thickened gallbladder wall. There is no evidence for hydronephrosis at this point in time. No nephrolithiasis is seen. No jeny s are identified on images saved. IMPRESSION: Cortical thinning with small size kidneys consistent with product of chronic medical viola l disease which is more prominent right kidney versus left kidney. No hydronephrosis bilaterally. Kavin reyez correlate with recent CT.
[2018-12-06 18:27] LABS: Appearance,Urine Cloudy (Clear); Bacteria,Urine Rare /hpf; Bilirubin,Urine Negative (Negative); Blood,Urine Large (Negative); Color,Urine Yellow; Glucose,Urine (UA) Negative (Negative); Hyaline Casts,Urine 14 /lpf (0-2); Ketones,Urine Negative (Negative); Leukocyte Esterase,Urine Large (Negative); Mucus,Urine Rare /hpf; Nitrite,Urine Negative (Negative); PH, Urine 5.5 (5.0-8.0); Protein,Urine Trace (Negative); RBC,Urine 137 /hpf (0-5); Specific Gravity,Urine 1.011 (1.001-1.035); Squamous Epithelial Cell,Urine 1 /hpf (0-4); Urobilinogen,Urine <2.0 mg/dL (<2.0); WBC,Urine >182 /hpf (0-5)
--- NOTE | 2018-12-06 18:32 | XR ---
EXAMINATION TYPE: XR chest 2V DATE OF EXAM: 12/06/2018 COMPARISON: Prior chest x-ray 01/10/2018 CT 11/21/2018 HISTORY: Leukocytosis and abnormal prior imaging TECHNIQUE: Frontal and lateral views of the chest are obtained. FINDINGS: No evident pneumothorax. Heart size is stable. Patchy density present at the right lung ba se, there is blunting the posterior costophrenic angles. Arthropathy noted within the shoulders. Natalie ent is rotated. IMPRESSION: Basilar atelectasis and probable associated right greater than left pleural effusion.
--- NOTE | 2018-12-06 21:25 | P.CONS ---
History of Present Illness - Reason for Consult Consult date: 12/06/18 Ascites, cirrhosis Requesting physician: Eric Spaulding - Chief Complaint Abnormal labs - History of Present Illness 73-year-old male with a medical history significant for CVA, hypertension, osteoarthritis, obstructive sleep apnea and recent diagnosis of decompensated cirrhosis who presents to the hospital for further evaluation after outpatient laboratory draw prior to paracentesis was found to be abnormal. The patient had been scheduled for paracentesis for which she had 8.6 L removed prior to presentation and for which he received albumin. Laboratory draw at that time was significant for a creatinine of 4.26 which was elevated from previous creatinine of 2.4 on 11/30/2018. The patient reports decreased appetite and nausea over the past 4 weeks. He does report some improvement in lower extremity swelling after diuretic therapy was initiated continued to have abdominal distention. Initially he was seen in the gastroenterology clinic a few weeks ago at which time he presented for evaluation of new onset ascites. At that time the patient denied alcohol abuse and several serologic workup was ordered. Patient had been started on diuretic therapy which was titrated and labs were ordered for the patient to have follow-up blood work for monitoring of kidney function and creatinine as well as electrolytes. Since that time it appears as diuretic therapy has been increased further with patient's home meds including a dose of Aldactone of 100 mg daily and Lasix 60 mg daily. Patient has not been seen in the clinic since that time. Currently he is seen lying in bed reporting that her appetite is somewhat improved after paracentesis. Review of Systems REVIEW OF SYSTEMS: CONSTITUTIONAL: Denies any fevers, chills, but does report fatigue. CARDIOVASCULAR: Denies any chest pain, palpitations high or low blood pressures RESPIRATORY: Denies any hemoptysis or cough, but does report some shortness of breath. GENITOURINARY: No dysuria or hematuria. MUSCULOSKELETAL: No weakness reported. SKIN: Denies any new rashes or lesions, jaundice or pallor. PSYCHIATRIC: Denies any new depression. NEUROLOGY: Denies headache, denies any new focal deficits. EARS/NOSE/THROAT: No recent hearing change, congestion, nasal discharge or sore throat. EYES: No pain in eyes, discharge or change in vision. GASTROINTESTINAL: As per HPI. Past Medical History Past Medical History: CVA/TIA, Hypertension, Osteoarthritis (OA), Sleep Apnea/CPAP/BIPAP, Thyroid Disorder Additional Past Medical History / Comment(s): HX TIA,HX KIDNEY STONE, NO CPAP FOR SLEEP APNEA, History of Any Multi-Drug Resistant Organisms: None Reported Past Surgical History: Tonsillectomy Additional Past Surgical History / Comment(s): LITHOTRIPSY, RT KNEE ARTHROSCOPY, right hip replacement, paracentesis Past Anesthesia/Blood Transfusion Reactions: No Reported Reaction Past Psychological History: No Psychological Hx Reported Smoking Status: Never smoker Past Alcohol Use History: Occasional Past Drug Use History: None Reported - Past Family History Mother Family Medical History: Cancer Additional Family Medical History / Comment(s): colon Medications and Allergies Home Medications Medication Instructions Recorded Confirmed Type Levothyroxine Sodium [Synthroid] 50 mcg PO DAILY 11/23/18 12/05/18 History Furosemide [Lasix] 60 mg PO BID 12/05/18 12/05/18 History Loperamide HCl [Imodium A-D] 2 - 4 mg PO QID PRN 12/05/18 12/05/18 History Ondansetron HCl [Zofran] 8 mg PO Q8H PRN 12/05/18 12/05/18 History Spironolactone 100 mg PO DAILY 12/05/18 12/05/18 History Allergies Allergy/AdvReac Type Severity Reaction Status Date / Time No Known Allergies Allergy Verified 12/05/18 17:40 Physical Exam Vitals: Vital Signs Temp Pulse Pulse Resp BP BP Pulse Ox 12/06/18 04:32 97.4 F L 72 18 105/65 94 L 12/06/18 00:00 18 12/05/18 23:17 97.9 F 83 18 115/60 97 12/05/18 20:57 98.1 F 71 20 109/58 97 12/05/18 20:00 77 22 100/57 96 12/05/18 19:00 76 22 101/57 99 12/05/18 18:41 78 18 111/54 98 12/05/18 16:55 97.5 F L 88 19 105/55 100 Intake and Output 12/05/18 12/06/18 12/06/18 22:59 06:59 14:59 Intake Total 200 Output Total 90 Balance 200 -90 Intake: Intake, IV Titration 200 Amount Sodium Chloride 0.9% 1, 200 000 ml @ 100 mls/hr IV . Q10H ONE Rx#:[id number] Output: Urine 90 Uretheral (Goldstein) 90 Other: Voiding Method Toilet Toilet # Voids 1 # Bowel Movements 1 3 Weight 84.141 kg On physical examination, patient appears comfortable in no apparent distress. HEAD: Normocephalic, atraumatic. EYES: No scleral icterus. No conjunctival injection. MOUTH: No lesions, tongue midline. NECK: Trachea midline, no gross abnormalities. CHEST: Decreased air entry bilaterally. HEART: S1-S2 appreciated. ABDOMEN: Soft, obese and distended with positive fluid wave. Bowel sounds are positive. No organomegaly. No guarding or rigidity. EXTREMITIES: Bilateral 2+ pedal edema. SKIN: No rashes, no jaundice. NEUROLOGIC: Alert and oriented x3, no asterixis noted. No focal deficits. Results CBC & Chem 7: 12/06/18 09:35 12/06/18 16:10 Labs: Abnormal Lab Results - Last 24 Hours (Table) 12/06/18 12/06/18 Range/Units 09:35 09:35 WBC 16.6 H (3.8-10.6) k/uL RBC 3.14 L (4.30-5.90) m/uL Hgb 11.5 L (13.0-17.5) gm/dL Hct 35.0 L (39.0-53.0) % MCV 111.5 H (80.0-100.0) fL MCH 36.6 H (25.0-35.0) pg Plt Count 114 L (150-450) k/uL Macrocytosis Marked A Sodium 134 L (137-145) mmol/L Potassium 2.7 L* (3.5-5.1) mmol/L Carbon Dioxide 19 L (22-30) mmol/L BUN 39 H (9-20) mg/dL Creatinine 3.21 H (0.66-1.25) mg/dL Glucose 105 H (74-99) mg/dL Calcium 7.7 L (8.4-10.2) mg/dL Total Bilirubin 2.2 H (0.2-1.3) mg/dL AST 63 H (17-59) U/L Alkaline Phosphatase 157 H (38-126) U/L Total Protein 5.2 L (6.3-8.2) g/dL Albumin 2.1 L (3.5-5.0) g/dL Amylase <30 L (30-110) U/L Chest x-ray: report reviewed (Chest x-ray with bibasilar atelectasis) Assessment and Plan (1) Decompensation of cirrhosis of liver Narrative/Plan: 73-year-old male with multiple medical comorbidities as well as suspicion for decompensated cirrhosis of the liver. Originally seen in the gastroenterology clinic in the outpatient setting for new onset ascites. Computed tomography scan at that time it showed a nodular suspicious for cirrhosis with fluid studies on a ascites also consistent with cirrhosis. Patient denied excessive alcohol use in the clinic but does have hospitalization in 2018 at which time I'll call level was found to be 211. Other serologies have been negative for etiology of liver disease. No reports of encephalopathy or prior GI bleeding, but patient has developed a ascites. Current Visit: Yes Status: Acute Code(s): K72.90 - HEPATIC FAILURE, UNSPECIFIED WITHOUT COMA SNOMED Code(s): 546709948 (2) Ascites Current Visit: Yes Status: Acute Code(s): R18.8 - OTHER ASCITES SNOMED Code(s): 859289204 Plan: Supportive care Okay for low-sodium, renal diet Continue to monitor CBC, CMP Nephrology following, appreciate the recommendations, currently receiving diuresis with IV Lasix Fluid restriction per nephrology Alcohol abstinence Thank you for allowing us to participate in the care of this patient we will continue to follow
[2018-12-07] MEDS: LEVOTHYROXINE 50 MCG TAB PO SCH (05:39)
[2018-12-07] MEDS: PANTOPRAZOLE 40 MG TABLET PO SCH (07:37)
[2018-12-07] MEDS: FAMOTIDINE 20 MG TAB PO SCH (07:37)
[2018-12-07] MEDS: FUROSEMIDE 10 MG/ML 10 ML VIAL IV SCH ×2 (07:37→21:33)
[2018-12-07] MEDS ORDERED: ENOXAPARIN 30 MG/0.3 ML SYRINGE SQ SCH (09:00)
--- NOTE | 2018-12-07 10:09 | P.PN ---
Subjective Progress Note Date: 12/07/18 This is a 73-year-old male patient of Dr. Salamanca. Patient presented yesterday 12/05/2018 for planned paracentesis was found to have abnormal lab. Patient has a history of ascites and underwent paracentesis yesterday with 8.6 L off. Patient's creatinine was found to be significantly elevated at 4.26 which patient was 2.4 on 11/30/2018. Blood also elevated at 42. Patient reports he's had decreased appetite over the past 4 weeks along with some nausea. Patient denies recent illness or fevers. Patient reports adequate urine output. Patient has a past medical history of CVA, hypertension, osteoarthritis, sleep apnea and thyroid disorder. Patient noted to have increased edema to lower extremities and right upper extremity venous Doppler will be ordered to rule out DVT. Nephrology services consulted for acute kidney injury. Patient started on IV Lasix per nephrology. GI services also consulted for recent paracentesis due to ascites. This time patient denies chest pain or shortness of breath. Patient denies nausea vomiting or diarrhea. Patient denies any urinary burning or frequency. On 12/07/2018 patient is alert and oriented 3 family is at bedside. Patient's creatinine is trending down to 3.21 and bun 39. UA positive for urinary tract infection. Patient started on Rocephin. Urine culture ordered. Patient remains on IV Lasix per nephrology services. Patient denies chest pain or shortness of breath. Patient denies nausea vomiting or diarrhea. Patient denies any urinary burning or frequency. Objective - Vital Signs Vital signs: Vital Signs Temp 97.7 F 12/07/18 05:00 Pulse 84 12/07/18 05:00 Resp 18 12/07/18 05:00 BP 109/68 12/07/18 05:00 Pulse Ox 98 12/07/18 05:00 Intake & Output 12/06/18 12/07/18 12/07/18 18:59 06:59 18:59 Intake Total 808 358 Output Total 715 850 Balance 93 -492 Intake: Intake, IV Titration 450 Amount Albumin Human 25% 50 ml 50 In Empty Bag 1 bag @ 50 mls/hr IVPB BID [facility] Rx#: [id number] Sodium Chloride 0.9% 1, 400 000 ml @ 100 mls/hr IV . Q10H ONE Rx#:[id number] Oral 358 358 Output: Urine 715 850 Uretheral (Goldstein) 715 850 Other: Voiding Method Indwelling Catheter Indwelling Catheter # Bowel Movements 1 - Exam Head normocephalic Neck supple Lungs clear to auscultation bilaterally no wheezing or crackles Heart regular rate and rhythm S1-S2, no rub or gallop Abdomen is soft and rounded nontender to palpation Extremities +2 nonpitting edema bilateral lower extremities. +1 edema to right upper extremity with erythema Neuro alert and orientated to 3 - Labs CBC & Chem 7: 12/06/18 09:35 12/06/18 16:10 Labs: Abnormal Lab Results - Last 24 Hours (Table) 12/06/18 12/06/18 12/06/18 Range/Units 09:35 09:35 16:10 WBC 16.6 H (3.8-10.6) k/uL RBC 3.14 L (4.30-5.90) m/uL Hgb 11.5 L (13.0-17.5) gm/dL Hct 35.0 L (39.0-53.0) % MCV 111.5 H (80.0-100.0) fL MCH 36.6 H (25.0-35.0) pg Plt Count 114 L (150-450) k/uL Neutrophils # 14.5 H (1.3-7.7) k/uL Macrocytosis Marked A Sodium 134 L (137-145) mmol/L Potassium 2.7 L* 3.4 L (3.5-5.1) mmol/L Carbon Dioxide 19 L (22-30) mmol/L BUN 39 H (9-20) mg/dL Creatinine 3.21 H (0.66-1.25) mg/dL Glucose 105 H (74-99) mg/dL Calcium 7.7 L (8.4-10.2) mg/dL Total Bilirubin 2.2 H (0.2-1.3) mg/dL AST 63 H (17-59) U/L Alkaline Phosphatase 157 H (38-126) U/L Total Protein 5.2 L (6.3-8.2) g/dL Albumin 2.1 L (3.5-5.0) g/dL Amylase <30 L (30-110) U/L Urine Protein (Negative) Urine Blood (Negative) Ur Leukocyte Esterase (Negative) Urine RBC (0-5) /hpf Urine WBC (0-5) /hpf Urine WBC Clumps (None) /hpf Urine Bacteria (None) /hpf Hyaline Casts (0-2) /lpf Urine Mucus (None) /hpf 12/06/18 Range/Units 18:10 WBC (3.8-10.6) k/uL RBC (4.30-5.90) m/uL Hgb (13.0-17.5) gm/dL Hct (39.0-53.0) % MCV (80.0-100.0) fL MCH (25.0-35.0) pg Plt Count (150-450) k/uL Neutrophils # (1.3-7.7) k/uL Macrocytosis Sodium (137-145) mmol/L Potassium (3.5-5.1) mmol/L Carbon Dioxide (22-30) mmol/L BUN (9-20) mg/dL Creatinine (0.66-1.25) mg/dL Glucose (74-99) mg/dL Calcium (8.4-10.2) mg/dL Total Bilirubin (0.2-1.3) mg/dL AST (17-59) U/L Alkaline Phosphatase (38-126) U/L Total Protein (6.3-8.2) g/dL Albumin (3.5-5.0) g/dL Amylase (30-110) U/L Urine Protein Trace H (Negative) Urine Blood Large H (Negative) Ur Leukocyte Esterase Large H (Negative) Urine RBC 137 H (0-5) /hpf Urine WBC >182 H (0-5) /hpf Urine WBC Clumps Few H (None) /hpf Urine Bacteria Rare H (None) /hpf Hyaline Casts 14 H (0-2) /lpf Urine Mucus Rare H (None) /hpf Microbiology - Last 24 Hours (Table) 12/06/18 18:10 Urine Culture - Preliminary Urine,Voided Assessment and Plan Assessment: 1. Acute kidney injury. Creatinine elevated at 4.26 and bun 42. Baseline creatinine appears to be 1. Nephrology services have been consulted we'll continue to monitor. Per nephrology Lasix 60 mg twice daily has been ordered. IV albumin 25 g 2 doses ordered. Renal ultrasound ordered. Home medications of Lasix and Aldactone on hold. Patient started on IV Lasix per nephrology. Renal ultrasound completed showing cortical thinning with small sized kidneys consistent with product of chronic medical renal disease which is more prominent right kidney versus left kidney. No hydronephrosis bilaterally. 2. Abdominal ascites with recent paracentesis. Patient underwent paracentesis on 12/05/2018 with 8.7 L removed. GI services have been consulted 3. Urinary tract infection. Patient started on Rocephin urine culture ordered 4. Volume overload. Venous Doppler bilateral lower extremities negative for DVT. Right upper arm ultrasound negative for DVT. She remains on Lasix 60 mg every 12 hours 5. History of nephrolithiasis status post lithotripsy in 2016 6. History of essential hypertension 7. History of CVA 8. History of sleep apnea 9. History of hypothyroidism. Home meds resumed 10. Cirrhosis of the liver. Possible EtOH history per GI 11. Hypokalemia. Potassium replacement protocol will continue to monitor DVT prophylaxis Lovenox. GI prophylaxis Protonix I performed an examination of the patient and discussed their management with the Nurse Practitioner. I have reviewed the Nurse Practitioner's notes and agree with the documented findings and plan of care
--- NOTE | 2018-12-07 10:30 | P.PN ---
Subjective Patient is seen in follow-up for acute kidney injury. Patient's baseline creatinine is near 1 and was elevated at 4.26 and he was sent to the hospital. It was down to 2.21 as of yesterday. Currently is a Goldstein catheter in place. Maintain on IV Lasix 60 malignant grams twice daily. Urine output documented as 1.6 L in the last 24 hours. Lower extremity edema improved. Vital signs are stable. General: The patient appeared well nourished and normally developed. HEENT: Head exam is unremarkable. Neck is without jugular venous distension. LUNGS: Lungs are clear to auscultation and percussion. Breath sounds decreased. HEART: Rate and Rhythm are regular. First and second heart sounds normal. No murmurs, rubs or gallops. ABDOMEN: Bowel sounds decreased. Moderate distention noted. EXTREMITITES: 1+ edema. Objective - Vital Signs Vital signs: Vital Signs Temp 97.7 F 12/07/18 05:00 Pulse 84 12/07/18 05:00 Resp 18 12/07/18 05:00 BP 109/68 12/07/18 05:00 Pulse Ox 98 12/07/18 05:00 Intake & Output 12/06/18 12/07/18 12/07/18 18:59 06:59 18:59 Intake Total 808 358 Output Total 715 850 900 Balance 93 492 -900 Intake: Intake, IV Titration 450 Amount Albumin Human 25% 50 ml 50 In Empty Bag 1 bag @ 50 mls/hr IVPB BID [facility] Rx#: [id number] Sodium Chloride 0.9% 1, 400 000 ml @ 100 mls/hr IV . Q10H [facility] Rx#:[id number] Oral 358 358 Output: Urine 715 850 900 Uretheral (Goldstein) 715 850 450 Other: Voiding Method Indwelling Catheter Indwelling Catheter # Bowel Movements 1 - Labs CBC & Chem 7: 12/06/18 09:35 12/06/18 16:10 Labs: Abnormal Lab Results - Last 24 Hours (Table) 12/06/18 12/06/18 12/06/18 Range/Units 09:35 09:35 16:10 WBC 16.6 H (3.8-10.6) k/uL RBC 3.14 L (4.30-5.90) m/uL Hgb 11.5 L (13.0-17.5) gm/dL Hct 35.0 L (39.0-53.0) % MCV 111.5 H (80.0-100.0) fL MCH 36.6 H (25.0-35.0) pg Plt Count 114 L (150-450) k/uL Neutrophils # 14.5 H (1.3-7.7) k/uL Macrocytosis Marked A Sodium 134 L (137-145) mmol/L Potassium 2.7 L* 3.4 L (3.5-5.1) mmol/L Carbon Dioxide 19 L (22-30) mmol/L BUN 39 H (9-20) mg/dL Creatinine 3.21 H (0.66-1.25) mg/dL Glucose 105 H (74-99) mg/dL Calcium 7.7 L (8.4-10.2) mg/dL Total Bilirubin 2.2 H (0.2-1.3) mg/dL AST 63 H (17-59) U/L Alkaline Phosphatase 157 H (38-126) U/L Total Protein 5.2 L (6.3-8.2) g/dL Albumin 2.1 L (3.5-5.0) g/dL Amylase <30 L (30-110) U/L Urine Protein (Negative) Urine Blood (Negative) Ur Leukocyte Esterase (Negative) Urine RBC (0-5) /hpf Urine WBC (0-5) /hpf Urine WBC Clumps (None) /hpf Urine Bacteria (None) /hpf Hyaline Casts (0-2) /lpf Urine Mucus (None) /hpf 12/06/18 Range/Units 18:10 WBC (3.8-10.6) k/uL RBC (4.30-5.90) m/uL Hgb (13.0-17.5) gm/dL Hct (39.0-53.0) % MCV (80.0-100.0) fL MCH (25.0-35.0) pg Plt Count (150-450) k/uL Neutrophils # (1.3-7.7) k/uL Macrocytosis Sodium (137-145) mmol/L Potassium (3.5-5.1) mmol/L Carbon Dioxide (22-30) mmol/L BUN (9-20) mg/dL Creatinine (0.66-1.25) mg/dL Glucose (74-99) mg/dL Calcium (8.4-10.2) mg/dL Total Bilirubin (0.2-1.3) mg/dL AST (17-59) U/L Alkaline Phosphatase (38-126) U/L Total Protein (6.3-8.2) g/dL Albumin (3.5-5.0) g/dL Amylase (30-110) U/L Urine Protein Trace H (Negative) Urine Blood Large H (Negative) Ur Leukocyte Esterase Large H (Negative) Urine RBC 137 H (0-5) /hpf Urine WBC >182 H (0-5) /hpf Urine WBC Clumps Few H (None) /hpf Urine Bacteria Rare H (None) /hpf Hyaline Casts 14 H (0-2) /lpf Urine Mucus Rare H (None) /hpf Microbiology - Last 24 Hours (Table) 12/06/18 18:10 Urine Culture - Preliminary Urine,Voided Assessment and Plan Plan: Assessment: 1. Acute kidney injury mostly prerenal secondary to diuresis and large volume paracentesis. Creatinine was 4.26 on admission and was down to 3.21 as of yesterday. Baseline creatinine near 1. No evidence of hydronephrosis noted on CAT scan done on November 21, 2018. Trace proteinuria on UA. 2. Ascites. Status post paracentesis on December 05 for nearly 8 L drained. ?Etiology liver disease. Gastroenterology following. 3. Volume overload. Improving with diuresis. 4. Metabolic acidosis secondary to acute kidney injury. 5. History of nephrolithiasis status post lithotripsy in 2016. 6. Hypokalemia status post replacement. Rule out magnesium deficiency. 7. Right renal atrophy. Plan: Maintain IV Lasix 60 mg twice daily. Add Aldactone 25 mg twice daily. Low-salt diet with 1200 mL fluid restriction. Strict I's and O's. Avoid nephrotoxins. Follow-up morning labs. Follow-up cultures.
[2018-12-07] MEDS: SPIRONOLACTONE 25 MG TAB PO SCH (12:33)
[2018-12-07 12:50] LABS: Albumin 2.4 g/dL (3.5-5.0); Calcium 8.3 mg/dL (8.4-10.2); Magnesium 1.5 mg/dL (1.6-2.3); Total Bilirubin 2.2 mg/dL (0.2-1.3); Total Protein 5.4 g/dL (6.3-8.2)
[2018-12-07 12:59] LABS: Basophils % (A) 0 %; Eosinophils # (A) 0.2 k/uL (0-0.7); Eosinophils % (A) 2 %; HCT 35.4 % (39.0-53.0); HGB 11.7 gm/dL (13.0-17.5); Lymphocytes # (A) 0.9 k/uL (1.0-4.8); Lymphocytes % (A) 5 %; MCH 37.1 pg (25.0-35.0); MCHC 33.1 g/dL (31.0-37.0); MCV 112.1 fL (80.0-100.0); Macrocytosis Marked; Mean Platelet Volume 8.9; Monocytes # (A) 0.8 k/uL (0-1.0); Monocytes % (A) 5 %; Neutrophils # (A) 14.2 k/uL (1.3-7.7); Neutrophils % (A) 88 %; RBC 3.15 m/uL (4.30-5.90); RDW 13.7 % (11.5-15.5); WBC 16.2 k/uL (3.8-10.6)
[2018-12-07 13:06] LABS: Potassium 3.2 mmol/L (3.5-5.1)
[2018-12-07 13:22] LABS: Platelet Count 85 k/uL (150-450)
[2018-12-07] MEDS ORDERED: Magnesium Replacement Protocol 1 EACH MISC MISCELLANE PRN (15:33)
[2018-12-07] MEDS ORDERED: Potassium Replacement Protocol 1 EACH MISC MISCELLANE PRN (15:33)
[2018-12-07] MEDS: POTASSIUM CHLORIDE ER 20 MEQ TAB.ER PO SCH ×2 (17:21→18:11)
[2018-12-07] MEDS: MAGNESIUM SULFATE-D5W PMX 1 GM in DEXTROSE/WATER 1 100ML.BAG IVPB SCH ×2 (17:21→18:35)
--- NOTE | 2018-12-07 21:59 | P.PN ---
Subjective Progress Note Date: 12/07/18 Principal diagnosis: Cirrhosis, ascites, abdominal distention Patient reports feeling better today, less abdominal distention. Tolerating his diet. No signs or symptoms of GI bleeding. Objective - Vital Signs Vital signs: Vital Signs Temp 97.7 F 12/07/18 21:00 Pulse 86 12/07/18 21:00 Resp 16 12/07/18 21:00 BP 99/52 12/07/18 21:00 Pulse Ox 97 12/07/18 21:00 Intake & Output 12/07/18 12/07/18 12/08/18 06:59 18:59 06:59 Intake Total 358 1130 Output Total 850 3000 Balance -492 -1870 Intake: Intake, IV Titration 50 Amount cefTRIAXone 1 gm In 50 Sodium Chloride 0.9% 50 ml @ 100 mls/hr IVPB Q24HR [facility] Rx#:[id number] Oral 358 1080 Output: Urine 850 3000 Uretheral (Goldstein) 850 850 Other: Voiding Method Indwelling Catheter Indwelling Catheter # Voids 1 # Bowel Movements 1 - Exam On physical examination, patient appears comfortable in no apparent distress. HEAD: Normocephalic, atraumatic. EYES: No scleral icterus. No conjunctival injection. MOUTH: No lesions, tongue midline. NECK: Trachea midline, no gross abnormalities. CHEST: Decreased air entry bilaterally. HEART: S1-S2 appreciated. ABDOMEN: Soft, distended with positive fluid wave. Bowel sounds are positive. No organomegaly. No guarding or rigidity. EXTREMITIES: Bilateral pedal edema. SKIN: No rashes, jaundice. NEUROLOGIC: Alert and oriented x3, no asterixis. No focal deficits. - Labs CBC & Chem 7: 12/07/18 12:18 12/07/18 12:18 Labs: Abnormal Lab Results - Last 24 Hours (Table) 12/07/18 12/07/18 Range/Units 12:18 12:18 WBC 16.2 H (3.8-10.6) k/uL RBC 3.15 L (4.30-5.90) m/uL Hgb 11.7 L (13.0-17.5) gm/dL Hct 35.4 L (39.0-53.0) % MCV 112.1 H (80.0-100.0) fL MCH 37.1 H (25.0-35.0) pg Plt Count 85 L (150-450) k/uL Neutrophils # 14.2 H (1.3-7.7) k/uL Lymphocytes # 0.9 L (1.0-4.8) k/uL Macrocytosis Marked A Sodium 135 L (137-145) mmol/L Potassium 3.2 L (3.5-5.1) mmol/L Chloride 109 H (98-107) mmol/L Carbon Dioxide 17 L (22-30) mmol/L BUN 33 H (9-20) mg/dL Creatinine 2.34 H (0.66-1.25) mg/dL Glucose 127 H (74-99) mg/dL Calcium 8.3 L (8.4-10.2) mg/dL Magnesium 1.5 L (1.6-2.3) mg/dL Total Bilirubin 2.2 H (0.2-1.3) mg/dL AST 71 H (17-59) U/L Alkaline Phosphatase 147 H (38-126) U/L Total Protein 5.4 L (6.3-8.2) g/dL Albumin 2.4 L (3.5-5.0) g/dL Microbiology - Last 24 Hours (Table) 12/06/18 18:10 Urine Culture - Final Urine,Voided Assessment and Plan (1) Decompensation of cirrhosis of liver Narrative/Plan: 73-year-old male with multiple medical comorbidities as well as suspicion for decompensated cirrhosis of the liver. Originally seen in the gastroenterology clinic in the outpatient setting for new onset ascites. Computed tomography scan at that time it showed a nodular suspicious for cirrhosis with fluid studies on a ascites also consistent with cirrhosis. Patient denied excessive alcohol use in the clinic but does have hospitalization in 2018 at which time alcohol level was found to be 211. Other serologies have been negative for etiology of liver disease. No reports of encephalopathy or prior GI bleeding, but patient has developed worsened ascites. Status post paracentesis with patient reporting symptomatic improvement. Current Visit: Yes Status: Acute Code(s): K72.90 - HEPATIC FAILURE, UNSPECIFIED WITHOUT COMA SNOMED Code(s): 011445822 (2) Ascites Current Visit: Yes Status: Acute Code(s): R18.8 - OTHER ASCITES SNOMED Code(s): 236310040 Plan: Supportive care Okay for low-sodium, renal diet Continue to monitor CBC, CMP Nephrology following, appreciate the recommendations, currently receiving diuresis with Lasix with addition of Aldactone today Fluid restriction per nephrology Alcohol abstinence Thank you for allowing us to participate in the care of this patient we will continue to follow
[2018-12-08] MEDS: SPIRONOLACTONE 25 MG TAB PO SCH ×3 (00:27→20:55)
[2018-12-08] MEDS: LEVOTHYROXINE 50 MCG TAB PO SCH (05:52)
[2018-12-08] MEDS: PANTOPRAZOLE 40 MG TABLET PO SCH (08:33)
[2018-12-08] MEDS: FUROSEMIDE 10 MG/ML 10 ML VIAL IV SCH (08:33)
[2018-12-08 09:45] LABS: Basophils # (A) 0.1 k/uL (0-0.2); Basophils % (A) 0 %; Eosinophils # (A) 0.3 k/uL (0-0.7); Eosinophils % (A) 2 %; HCT 34.3 % (39.0-53.0); HGB 11.3 gm/dL (13.0-17.5); Lymphocytes # (A) 1.3 k/uL (1.0-4.8); Lymphocytes % (A) 9 %; MCH 37.1 pg (25.0-35.0); MCHC 32.8 g/dL (31.0-37.0); MCV 113.1 fL (80.0-100.0); Macrocytosis Marked; Mean Platelet Volume 8.1; Monocytes # (A) 0.6 k/uL (0-1.0); Monocytes % (A) 4 %; Neutrophils # (A) 11.5 k/uL (1.3-7.7); Neutrophils % (A) 83 %; Platelet Count 101 k/uL (150-450); RBC 3.04 m/uL (4.30-5.90); RDW 13.7 % (11.5-15.5); WBC 13.8 k/uL (3.8-10.6)
[2018-12-08 09:55] LABS: Albumin 2.3 g/dL (3.5-5.0); Magnesium 1.7 mg/dL (1.6-2.3); Total Bilirubin 2.4 mg/dL (0.2-1.3); Total Protein 5.5 g/dL (6.3-8.2)
[2018-12-08 10:15] LABS: Potassium 3.4 mmol/L (3.5-5.1)
[2018-12-08] MEDS ORDERED: Potassium Replacement Protocol 1 EACH MISC MISCELLANE PRN (11:05)
--- NOTE | 2018-12-08 11:39 | P.PN ---
Subjective Progress Note Date: 12/08/18 This is a 73-year-old male patient of Dr. Salamanca. Patient presented yesterday 12/05/2018 for planned paracentesis was found to have abnormal lab. Patient has a history of ascites and underwent paracentesis yesterday with 8.6 L off. Patient's creatinine was found to be significantly elevated at 4.26 which patient was 2.4 on 11/30/2018. Blood also elevated at 42. Patient reports he's had decreased appetite over the past 4 weeks along with some nausea. Patient denies recent illness or fevers. Patient reports adequate urine output. Patient has a past medical history of CVA, hypertension, osteoarthritis, sleep apnea and thyroid disorder. Patient noted to have increased edema to lower extremities and right upper extremity venous Doppler will be ordered to rule out DVT. Nephrology services consulted for acute kidney injury. Patient started on IV Lasix per nephrology. GI services also consulted for recent paracentesis due to ascites. This time patient denies chest pain or shortness of breath. Patient denies nausea vomiting or diarrhea. Patient denies any urinary burning or frequency. On 12/07/2018 patient is alert and oriented 3 family is at bedside. Patient's creatinine is trending down to 3.21 and bun 39. UA positive for urinary tract infection. Patient started on Rocephin. Urine culture ordered. Patient remains on IV Lasix per nephrology services. Patient denies chest pain or shortness of breath. Patient denies nausea vomiting or diarrhea. Patient denies any urinary burning or frequency. On 12/08/2018 patient is alert and oriented 3. Creatinine trending down to 1.90 bun 30. white blood cell also trending down to 13.8. Patient remains on Rocephin for urinary tract infection. Patient remains on IV Lasix 60 mg every 12 hours. This time patient denies chest pain or shortness of breath. Patient denies nausea vomiting or diarrhea. Patient denies any urinary burning or frequency. Objective - Vital Signs Vital signs: Vital Signs Temp 97.8 F 12/08/18 05:00 Pulse 67 12/08/18 05:00 Resp 16 12/08/18 05:00 BP 106/68 12/08/18 05:00 Pulse Ox 96 12/08/18 05:00 Intake & Output 12/07/18 12/08/18 12/08/18 18:59 06:59 18:59 Intake Total 1130 240 Output Total 3000 800 Balance -1870 -560 Intake: Intake, IV Titration 50 Amount cefTRIAXone 1 gm In 50 Sodium Chloride 0.9% 50 ml @ 100 mls/hr IVPB Q24HR [facility] Rx#:[id number] Oral 1080 240 Output: Urine 3000 800 Uretheral (Goldstein) 850 800 Other: Voiding Method Indwelling Catheter Indwelling Catheter # Voids 1 - Exam Head normocephalic Neck supple Lungs clear to auscultation bilaterally no wheezing or crackles Heart regular rate and rhythm S1-S2, no rub or gallop Abdomen is soft and rounded nontender to palpation Extremities +2 nonpitting edema bilateral lower extremities. +1 edema to right upper extremity with erythema Neuro alert and orientated to 3 - Labs CBC & Chem 7: 12/08/18 09:17 12/08/18 09:17 Labs: Abnormal Lab Results - Last 24 Hours (Table) 12/07/18 12/07/18 12/08/18 Range/Units 12:18 12:18 09:17 WBC 16.2 H 13.8 H (3.8-10.6) k/uL RBC 3.15 L 3.04 L (4.30-5.90) m/uL Hgb 11.7 L 11.3 L (13.0-17.5) gm/dL Hct 35.4 L 34.3 L (39.0-53.0) % MCV 112.1 H 113.1 H (80.0-100.0) fL MCH 37.1 H 37.1 H (25.0-35.0) pg Plt Count 85 L 101 L (150-450) k/uL Neutrophils # 14.2 H 11.5 H (1.3-7.7) k/uL Lymphocytes # 0.9 L (1.0-4.8) k/uL Macrocytosis Marked A Marked A Sodium 135 L (137-145) mmol/L Potassium 3.2 L (3.5-5.1) mmol/L Chloride 109 H (98-107) mmol/L Carbon Dioxide 17 L (22-30) mmol/L BUN 33 H (9-20) mg/dL Creatinine 2.34 H (0.66-1.25) mg/dL Glucose 127 H (74-99) mg/dL Calcium 8.3 L (8.4-10.2) mg/dL Magnesium 1.5 L (1.6-2.3) mg/dL Total Bilirubin 2.2 H (0.2-1.3) mg/dL AST 71 H (17-59) U/L Alkaline Phosphatase 147 H (38-126) U/L Total Protein 5.4 L (6.3-8.2) g/dL Albumin 2.4 L (3.5-5.0) g/dL 12/08/18 Range/Units 09:17 WBC (3.8-10.6) k/uL RBC (4.30-5.90) m/uL Hgb (13.0-17.5) gm/dL Hct (39.0-53.0) % MCV (80.0-100.0) fL MCH (25.0-35.0) pg Plt Count (150-450) k/uL Neutrophils # (1.3-7.7) k/uL Lymphocytes # (1.0-4.8) k/uL Macrocytosis Sodium 135 L (137-145) mmol/L Potassium 3.4 L (3.5-5.1) mmol/L Chloride (98-107) mmol/L Carbon Dioxide 18 L (22-30) mmol/L BUN 30 H (9-20) mg/dL Creatinine 1.90 H (0.66-1.25) mg/dL Glucose 121 H (74-99) mg/dL Calcium 8.0 L (8.4-10.2) mg/dL Magnesium (1.6-2.3) mg/dL Total Bilirubin 2.4 H (0.2-1.3) mg/dL AST 78 H (17-59) U/L Alkaline Phosphatase 133 H (38-126) U/L Total Protein 5.5 L (6.3-8.2) g/dL Albumin 2.3 L (3.5-5.0) g/dL Microbiology - Last 24 Hours (Table) 12/06/18 18:10 Urine Culture - Final Urine,Voided Assessment and Plan Assessment: 1. Acute kidney injury. Creatinine elevated at 4.26 and bun 42. Baseline creatinine appears to be 1. Nephrology services have been consulted we'll continue to monitor. Per nephrology Lasix 60 mg twice daily has been ordered. IV albumin 25 g 2 doses ordered. Renal ultrasound ordered. Home medications of Lasix and Aldactone on hold. Patient started on IV Lasix per nephrology. Renal ultrasound completed showing cortical thinning with small sized kidneys consistent with product of chronic medical renal disease which is more prominent right kidney versus left kidney. No hydronephrosis bilaterally. Creatinine improving to 1.90 and BUN 30. 2. Abdominal ascites with recent paracentesis. Patient underwent paracentesis on 12/05/2018 with 8.7 L removed. GI services have been consulted 3. Urinary tract infection. Patient started on Rocephin urine culture ordered. 4. Volume overload. Venous Doppler bilateral lower extremities negative for DVT. Right upper arm ultrasound negative for DVT. remains on Lasix 60 mg every 12 hours 5. History of nephrolithiasis status post lithotripsy in 2015 6. History of essential hypertension 7. History of CVA 8. History of sleep apnea 9. History of hypothyroidism. Home meds resumed 10. Cirrhosis of the liver. Possible EtOH history per GI 11. Hypokalemia. Potassium replacement protocol will continue to monitor DVT prophylaxis Lovenox. GI prophylaxis Protonix I performed an examination of the patient and discussed their management with isabela alvarado Nurse Practitioner. I have reviewed the Nurse Practitioner's notes and agree with the documented findings and plan of care
[2018-12-08] MEDS: POTASSIUM CHLORIDE ER 20 MEQ TAB.ER PO SCH ×2 (11:49→13:02)
--- NOTE | 2018-12-08 14:17 | P.PN ---
Subjective Patient is seen in follow-up for acute kidney injury. Patient's baseline creatinine is near 1 and was elevated at 4.26 and he was sent to the hospital. It is down to 1.9 today. Currently has a Goldstein catheter in place. Maintain on IV Lasix 60 mg twice daily. Urine output documented as 3.8 L in the last 24 hours. Lower extremity edema improved. Vital signs are stable. General: The patient appeared well nourished and normally developed. HEENT: Head exam is unremarkable. Neck is without jugular venous distension. LUNGS: Lungs are clear to auscultation and percussion. Breath sounds decreased. HEART: Rate and Rhythm are regular. First and second heart sounds normal. No murmurs, rubs or gallops. ABDOMEN: Bowel sounds decreased. Moderate distention noted. EXTREMITITES: 1+ edema. Objective - Vital Signs Vital signs: Vital Signs Temp 97 F L 12/08/18 11:49 Pulse 79 12/08/18 11:49 Resp 15 12/08/18 11:49 BP 108/57 12/08/18 11:49 Pulse Ox 98 12/08/18 11:49 Intake & Output 12/07/18 12/08/18 12/08/18 18:59 06:59 18:59 Intake Total 1130 240 120 Output Total 3000 800 Balance -1870 -560 120 Intake: Intake, IV Titration 50 Amount cefTRIAXone 1 gm In 50 Sodium Chloride 0.9% 50 ml @ 100 mls/hr IVPB Q24HR [facility] Rx#:[id number] Oral 1080 240 120 Output: Urine 3000 800 Uretheral (Goldstein) 850 800 Other: Voiding Method Indwelling Catheter Indwelling Catheter Indwelling Catheter # Voids 1 - Labs CBC & Chem 7: 12/08/18 09:17 12/08/18 09:17 Labs: Abnormal Lab Results - Last 24 Hours (Table) 12/08/18 12/08/18 Range/Units 09:17 09:17 WBC 13.8 H (3.8-10.6) k/uL RBC 3.04 L (4.30-5.90) m/uL Hgb 11.3 L (13.0-17.5) gm/dL Hct 34.3 L (39.0-53.0) % MCV 113.1 H (80.0-100.0) fL MCH 37.1 H (25.0-35.0) pg Plt Count 101 L (150-450) k/uL Neutrophils # 11.5 H (1.3-7.7) k/uL Macrocytosis Marked A Sodium 135 L (137-145) mmol/L Potassium 3.4 L (3.5-5.1) mmol/L Carbon Dioxide 18 L (22-30) mmol/L BUN 30 H (9-20) mg/dL Creatinine 1.90 H (0.66-1.25) mg/dL Glucose 121 H (74-99) mg/dL Calcium 8.0 L (8.4-10.2) mg/dL Total Bilirubin 2.4 H (0.2-1.3) mg/dL AST 78 H (17-59) U/L Alkaline Phosphatase 133 H (38-126) U/L Total Protein 5.5 L (6.3-8.2) g/dL Albumin 2.3 L (3.5-5.0) g/dL Microbiology - Last 24 Hours (Table) 12/06/18 18:10 Urine Culture - Final Urine,Voided Assessment and Plan Plan: Assessment: 1. Acute kidney injury mostly prerenal secondary to diuresis and large volume paracentesis. Creatinine was 4.26 on admission and is down to 1.9 today. Baseline creatinine near 1. No evidence of hydronephrosis noted on CAT scan done on November 21, 2018. Trace proteinuria on UA. 2. Ascites. Status post paracentesis on December 05 for nearly 8 L drained. ?Etiology liver disease. Gastroenterology following. 3. Volume overload. Improving with diuresis. 4. Metabolic acidosis secondary to acute kidney injury. 5. History of nephrolithiasis status post lithotripsy in 2016. 6. Hypokalemia secondary to diuresis. 7. Right renal atrophy. Plan: I will change Lasix to 60 mg orally twice daily. Increase Aldactone to 50 mg twice daily. Potassium has been replaced. Low-salt diet with 1200 mL fluid restriction. Strict I's and O's. Avoid nephrotoxins. Add oral sodium bicarbonate.
[2018-12-08] MEDS ORDERED: MAGNESIUM SULFATE-D5W PMX 1 GM in DEXTROSE/WATER 1 100ML.BAG IVPB ONE (15:00)
--- NOTE | 2018-12-08 15:21 | CT ---
EXAMINATION TYPE: CT brain wo con DATE OF EXAM: 12/08/2018 COMPARISON: 03/21/2016 HISTORY: weakness, confusion CT DLP: [address] of the brain was performed. The ventricles, basal cisterns and sulci overlying the cerebral convexities demonstrate mild enlargem ent. There is no evidence for intracranial hemorrhage or sulcal effacement. There is decreased attenuation about the periventricular white matter and deep white matter of both c erebral hemispheres, compatible with chronic small vessel ischemia. Differential diagnosis does inclu de demyelination. No mass effects are seen.No midline shift. Osseous calvarium is intact. If symptoms persist consider MRI. IMPRESSION: 1. Age related atrophic and chronic small vessel ischemic change without acute intracranial process s een at this time.
[2018-12-08] MEDS: FUROSEMIDE 20 MG TAB PO SCH (16:48)
[2018-12-08] MEDS: SODIUM BICARBONATE TAB 650 MG TAB PO SCH (20:54)
--- NOTE | 2018-12-08 20:59 | P.PN ---
Subjective Progress Note Date: 12/08/18 Principal diagnosis: Cirrhosis, ascites, abdominal distention Patient reports feeling good. Tolerating his diet. No signs or symptoms of GI bleeding. Objective - Vital Signs Vital signs: Vital Signs Temp 97 F L 12/08/18 11:49 Pulse 79 12/08/18 16:00 Resp 16 12/08/18 16:00 BP 108/57 12/08/18 11:49 Pulse Ox 98 12/08/18 11:49 Intake & Output 12/08/18 12/08/18 12/09/18 06:59 18:59 06:59 Intake Total 240 530 Output Total 800 1700 Balance -560 -1170 Intake: Intake, IV Titration 50 Amount cefTRIAXone 1 gm In 50 Sodium Chloride 0.9% 50 ml @ 100 mls/hr IVPB Q24HR [facility] Rx#:[id number] Oral 240 480 Output: Urine 800 1700 Uretheral (Goldstein) 800 200 Other: Voiding Method Indwelling Catheter Indwelling Catheter - Exam On physical examination, patient appears comfortable in no apparent distress. HEAD: Normocephalic, atraumatic. EYES: No scleral icterus. No conjunctival injection. MOUTH: No lesions, tongue midline. NECK: Trachea midline, no gross abnormalities. CHEST: Decreased air entry bilaterally. HEART: S1-S2 appreciated. ABDOMEN: Soft, distended with positive fluid wave. Bowel sounds are positive. No organomegaly. No guarding or rigidity. EXTREMITIES: Bilateral pedal edema. SKIN: No rashes, jaundice. NEUROLOGIC: Alert and oriented x3, no asterixis. No focal deficits. - Labs CBC & Chem 7: 12/08/18 09:17 12/08/18 09:17 Labs: Abnormal Lab Results - Last 24 Hours (Table) 12/08/18 12/08/18 Range/Units 09:17 09:17 WBC 13.8 H (3.8-10.6) k/uL RBC 3.04 L (4.30-5.90) m/uL Hgb 11.3 L (13.0-17.5) gm/dL Hct 34.3 L (39.0-53.0) % MCV 113.1 H (80.0-100.0) fL MCH 37.1 H (25.0-35.0) pg Plt Count 101 L (150-450) k/uL Neutrophils # 11.5 H (1.3-7.7) k/uL Macrocytosis Marked A Sodium 135 L (137-145) mmol/L Potassium 3.4 L (3.5-5.1) mmol/L Carbon Dioxide 18 L (22-30) mmol/L BUN 30 H (9-20) mg/dL Creatinine 1.90 H (0.66-1.25) mg/dL Glucose 121 H (74-99) mg/dL Calcium 8.0 L (8.4-10.2) mg/dL Total Bilirubin 2.4 H (0.2-1.3) mg/dL AST 78 H (17-59) U/L Alkaline Phosphatase 133 H (38-126) U/L Total Protein 5.5 L (6.3-8.2) g/dL Albumin 2.3 L (3.5-5.0) g/dL Microbiology - Last 24 Hours (Table) 12/07/18 18:02 Blood Culture - Preliminary Blood No Growth after 24 hours 12/06/18 18:10 Urine Culture - Final Urine,Voided Assessment and Plan (1) Decompensation of cirrhosis of liver Narrative/Plan: 73-year-old male with multiple medical comorbidities as well as suspicion for decompensated cirrhosis of the liver. Originally seen in the gastroenterology clinic in the outpatient setting for new onset ascites. Computed tomography scan at that time it showed a nodular suspicious for cirrhosis with fluid studies on a ascites also consistent with cirrhosis. Patient denied excessive alcohol use in the clinic but does have hospitalization in 2018 at which time alcohol level was found to be 211. Other serologies have been negative for etiology of liver disease. No reports of encephalopathy or prior GI bleeding, but patient has developed worsened ascites. Status post paracentesis with patient reporting symptomatic improvement. Current Visit: Yes Status: Acute Code(s): K72.90 - HEPATIC FAILURE, UNSPECIFIED WITHOUT COMA SNOMED Code(s): 946057134 (2) Ascites Current Visit: Yes Status: Acute Code(s): R18.8 - OTHER ASCITES SNOMED Code(s): 234445540 Plan: Supportive care Okay for low-sodium, renal diet Continue to monitor CBC, CMP Nephrology following, appreciate the recommendations, currently receiving diuresis with Lasix with addition of Aldactone today Fluid restriction per nephrology Alcohol abstinence Thank you for allowing us to participate in the care of this patient we will continue to follow
[2018-12-09] MEDS: LEVOTHYROXINE 50 MCG TAB PO SCH (05:49)
[2018-12-09] MEDS: SPIRONOLACTONE 25 MG TAB PO SCH ×2 (08:17→21:23)
[2018-12-09] MEDS: FUROSEMIDE 20 MG TAB PO SCH ×2 (08:18→17:23)
[2018-12-09] MEDS: PANTOPRAZOLE 40 MG TABLET PO SCH (08:18)
[2018-12-09] MEDS: SODIUM BICARBONATE TAB 650 MG TAB PO SCH ×2 (08:18→21:23)
[2018-12-09 10:18] LABS: Albumin 2.1 g/dL (3.5-5.0); Calcium 8.2 mg/dL (8.4-10.2); Potassium 3.3 mmol/L (3.5-5.1); Total Bilirubin 2.1 mg/dL (0.2-1.3); Total Protein 5.1 g/dL (6.3-8.2)
--- NOTE | 2018-12-09 11:21 | P.PN ---
Subjective Progress Note Date: 12/09/18 Seen and examined for the follow-up of acute kidney injury. No nausea vomiting diarrhea. Objective - Vital Signs Vital signs: Vital Signs Temp 97.6 F 12/09/18 04:59 Pulse 84 12/09/18 04:59 Resp 16 12/09/18 04:59 BP 95/60 12/09/18 04:59 Pulse Ox 98 12/09/18 04:59 Intake & Output 12/08/18 12/09/18 12/09/18 18:59 06:59 18:59 Intake Total 530 600 Output Total 1700 400 Balance -1170 200 Intake: Intake, IV Titration 50 Amount cefTRIAXone 1 gm In 50 Sodium Chloride 0.9% 50 ml @ 100 mls/hr IVPB Q[facility]HR [facility] Rx#:[id number] Oral 480 600 Output: Urine 1700 400 Uretheral (Goldstein) 200 Other: Voiding Method Indwelling Catheter Indwelling Catheter Indwelling Catheter - Exam No acute distress S1-S2 heard Decreased breath sounds Abdomen distended Edema - Labs CBC & Chem 7: 12/08/18 09:17 12/09/18 09:40 Labs: Abnormal Lab Results - Last 24 Hours (Table) 12/08/18 12/09/18 Range/Units 09:17 09:40 WBC 13.8 H (3.8-10.6) k/uL RBC 3.04 L (4.30-5.90) m/uL Hgb 11.3 L (13.0-17.5) gm/dL Hct 34.3 L (39.0-53.0) % MCV 113.1 H (80.0-100.0) fL MCH 37.1 H (25.0-35.0) pg Plt Count 101 L (150-450) k/uL Neutrophils # 11.5 H (1.3-7.7) k/uL Macrocytosis Marked A Potassium 3.3 L (3.5-5.1) mmol/L Chloride 108 H (98-107) mmol/L Carbon Dioxide 20 L (22-30) mmol/L BUN 28 H (9-20) mg/dL Creatinine 1.55 H (0.66-1.25) mg/dL Glucose 145 H (74-99) mg/dL Calcium 8.2 L (8.4-10.2) mg/dL Total Bilirubin 2.1 H (0.2-1.3) mg/dL AST 69 H (17-59) U/L Alkaline Phosphatase 147 H (38-126) U/L Total Protein 5.1 L (6.3-8.2) g/dL Albumin 2.1 L (3.5-5.0) g/dL Microbiology - Last 24 Hours (Table) 12/07/18 18:02 Blood Culture - Preliminary Blood No Growth after 24 hours Assessment and Plan Assessment: #1 acute kidney injury secondary to hemodynamic ATN. #2 ascites status post large volume paracentesis with 8 L of fluid removed. #3 volume overload improving with Diuresis #4 metabolic acidosis secondary to acute kidney injury #5 right renal atrophy Plan: #1 creatinine improving continue with the current diuretic regimen. #2 admitted to drain for hemodynamic support #3 replace potassium #4 labs in the morning
[2018-12-09 11:42] LABS: Basophils % (A) 0 %; Eosinophils # (A) 0.3 k/uL (0-0.7); Eosinophils % (A) 2 %; HCT 33.8 % (39.0-53.0); Lymphocytes # (A) 1.2 k/uL (1.0-4.8); Lymphocytes % (A) 8 %; MCH 37.3 pg (25.0-35.0); MCHC 32.5 g/dL (31.0-37.0); MCV 114.7 fL (80.0-100.0); Macrocytosis Marked; Mean Platelet Volume 8.7; Monocytes # (A) 0.6 k/uL (0-1.0); Monocytes % (A) 4 %; Neutrophils # (A) 11.7 k/uL (1.3-7.7); Neutrophils % (A) 84 %; RBC 2.95 m/uL (4.30-5.90); RDW 13.4 % (11.5-15.5); WBC 13.9 k/uL (3.8-10.6)
[2018-12-09] MEDS: MIDODRINE 5 MG TAB PO SCH ×2 (12:19→17:23)
[2018-12-09 13:35] LABS: Platelet Count 91 k/uL (150-450)
--- NOTE | 2018-12-09 19:44 | P.PN ---
Subjective Progress Note Date: 12/09/18 This is a 73-year-old male patient of Dr. Salamanca. Patient presented yesterday 12/05/2018 for planned paracentesis was found to have abnormal lab. Patient has a history of ascites and underwent paracentesis yesterday with 8.6 L off. Patient's creatinine was found to be significantly elevated at 4.26 which patient was 2.4 on 11/30/2018. Blood also elevated at 42. Patient reports he's had decreased appetite over the past 4 weeks along with some nausea. Patient denies recent illness or fevers. Patient reports adequate urine output. Patient has a past medical history of CVA, hypertension, osteoarthritis, sleep apnea and thyroid disorder. Patient noted to have increased edema to lower extremities and right upper extremity venous Doppler will be ordered to rule out DVT. Nephrology services consulted for acute kidney injury. Patient started on IV Lasix per nephrology. GI services also consulted for recent paracentesis due to ascites. This time patient denies chest pain or shortness of breath. Patient denies nausea vomiting or diarrhea. Patient denies any urinary burning or frequency. On 12/07/2018 patient is alert and oriented 3 family is at bedside. Patient's creatinine is trending down to 3.21 and bun 39. UA positive for urinary tract infection. Patient started on Rocephin. Urine culture ordered. Patient remains on IV Lasix per nephrology services. Patient denies chest pain or shortness of breath. Patient denies nausea vomiting or diarrhea. Patient denies any urinary burning or frequency. On 12/08/2018 patient is alert and oriented 3. Creatinine trending down to 1.90 bun 30. white blood cell also trending down to 13.8. Patient remains on Rocephin for urinary tract infection. Patient remains on IV Lasix 60 mg every 12 hours. This time patient denies chest pain or shortness of breath. Patient denies nausea vomiting or diarrhea. Patient denies any urinary burning or frequency. On 12/09/2018 patient was seen and examined on the medical floor he is alert and oriented 3 in no apparent distress he denies any complaints at this time there is no fever or chills no headache or dizziness no chest pain no shortness of breath no cough no nausea or vomiting no abdominal pain no diarrhea and no urinary symptoms Objective - Vital Signs Vital signs: Vital Signs Temp 97.4 F L 12/09/18 11:36 Pulse 78 12/09/18 11:36 Resp 16 12/09/18 11:36 BP 94/55 12/09/18 11:36 Pulse Ox 98 12/09/18 11:36 Intake & Output 12/09/18 12/09/18 12/10/18 06:59 18:59 06:59 Intake Total 600 629 Output Total 400 1000 Balance 200 -371 Intake: Intake, IV Titration 50 Amount cefTRIAXone 1 gm In 50 Sodium Chloride 0.9% 50 ml @ 100 mls/hr IVPB Q24HR [facility] Rx#:[id number] Oral 600 579 Output: Urine 400 1000 Other: Voiding Method Indwelling Catheter Indwelling Catheter - Exam In general patient is alert and oriented 3 in no apparent distress Head normocephalic and atraumatic Neck supple no JVD no goiter Lungs clear to auscultation bilaterally no wheezing or crackles Heart regular rate and rhythm S1-S2, no rub or gallop Abdomen is soft and rounded nontender to palpation Extremities +2 nonpitting edema bilateral lower extremities. +1 edema to right upper extremity with erythema Neuro no gross focal neurological deficit - Labs CBC & Chem 7: 12/09/18 09:40 12/09/18 09:40 Labs: Abnormal Lab Results - Last 24 Hours (Table) 12/09/18 12/09/18 Range/Units 09:40 09:40 WBC 13.9 H (3.8-10.6) k/uL RBC 2.95 L (4.30-5.90) m/uL Hgb 11.0 L (13.0-17.5) gm/dL Hct 33.8 L (39.0-53.0) % MCV 114.7 H (80.0-100.0) fL MCH 37.3 H (25.0-35.0) pg Plt Count 91 L (150-450) k/uL Neutrophils # 11.7 H (1.3-7.7) k/uL Macrocytosis Marked A Potassium 3.3 L (3.5-5.1) mmol/L Chloride 108 H (98-107) mmol/L Carbon Dioxide 20 L (22-30) mmol/L BUN 28 H (9-20) mg/dL Creatinine 1.55 H (0.66-1.25) mg/dL Glucose 145 H (74-99) mg/dL Calcium 8.2 L (8.4-10.2) mg/dL Total Bilirubin 2.1 H (0.2-1.3) mg/dL AST 69 H (17-59) U/L Alkaline Phosphatase 147 H (38-126) U/L Total Protein 5.1 L (6.3-8.2) g/dL Albumin 2.1 L (3.5-5.0) g/dL Microbiology - Last 24 Hours (Table) 12/07/18 18:02 Blood Culture - Preliminary Blood No Growth after 24 hours Assessment and Plan Plan: 1. Acute kidney injury. Creatinine elevated at 4.26 and bun 42. Baseline creatinine appears to be 1. Nephrology services have been consulted we'll continue to monitor. Per nephrology Lasix 60 mg twice daily has been ordered. IV albumin 25 g 2 doses ordered. Renal ultrasound ordered. Home medications of Lasix and Aldactone on hold. Patient started on IV Lasix per nephrology. Renal ultrasound completed showing cortical thinning with small sized kidneys consistent with product of chronic medical renal disease which is more prominent right kidney versus left kidney. No hydronephrosis bilaterally. Creatinine improving to 1.90 and BUN 30. 2. Abdominal ascites with recent paracentesis. Patient underwent paracentesis on 12/05/2018 with 8.7 L removed. GI services have been consulted 3. Urinary tract infection. Patient started on Rocephin urine culture ordered. 4. Volume overload. Venous Doppler bilateral lower extremities negative for DVT. Right upper arm ultrasound negative for DVT. remains on Lasix 60 mg every 12 hours 5. History of nephrolithiasis status post lithotripsy in 2016 6. History of essential hypertension 7. History of CVA 8. History of sleep apnea 9. History of hypothyroidism. Home meds resumed 10. Cirrhosis of the liver. Possible EtOH history per GI 11. Hypokalemia. Potassium replacement protocol will continue to monitor DVT prophylaxis Lovenox. GI prophylaxis Protonix
[2018-12-10] MEDS: LEVOTHYROXINE 50 MCG TAB PO SCH (06:04)
[2018-12-10] MEDS: MIDODRINE 5 MG TAB PO SCH ×3 (08:10→16:49)
[2018-12-10] MEDS: SPIRONOLACTONE 25 MG TAB PO SCH ×2 (08:10→21:19)
[2018-12-10] MEDS: FUROSEMIDE 20 MG TAB PO SCH ×2 (08:10→16:49)
[2018-12-10] MEDS: PANTOPRAZOLE 40 MG TABLET PO SCH (08:10)
[2018-12-10] MEDS: SODIUM BICARBONATE TAB 650 MG TAB PO SCH ×2 (08:10→21:19)
[2018-12-10 11:19] LABS: Albumin 2.3 g/dL (3.5-5.0); Calcium 8.3 mg/dL (8.4-10.2); Potassium 3.3 mmol/L (3.5-5.1); Total Bilirubin 2.5 mg/dL (0.2-1.3); Total Protein 5.7 g/dL (6.3-8.2)
[2018-12-10 11:59] LABS: Basophils # (A) 0.1 k/uL (0-0.2); Basophils % (A) 1 %; Eosinophils # (A) 0.4 k/uL (0-0.7); Eosinophils % (A) 2 %; HCT 37.5 % (39.0-53.0); HGB 12.1 gm/dL (13.0-17.5); Lymphocytes # (A) 1.2 k/uL (1.0-4.8); Lymphocytes % (A) 6 %; MCH 37.6 pg (25.0-35.0); MCHC 32.3 g/dL (31.0-37.0); MCV 116.2 fL (80.0-100.0); Macrocytosis Marked; Mean Platelet Volume 8.6; Monocytes # (A) 0.8 k/uL (0-1.0); Monocytes % (A) 4 %; Neutrophils # (A) 15.9 k/uL (1.3-7.7); Neutrophils % (A) 85 %; Platelet Count 106 k/uL (150-450); RBC 3.23 m/uL (4.30-5.90); RDW 13.5 % (11.5-15.5); WBC 18.6 k/uL (3.8-10.6)
[2018-12-10] MEDS: POTASSIUM CHLORIDE ER 20 MEQ TAB.ER PO SCH ×2 (12:01→13:26)
--- NOTE | 2018-12-10 12:38 | P.PN ---
Subjective Progress Note Date: 12/10/18 Seen and examined for the follow-up of acute kidney injury. No nausea vomiting diarrhea. Objective - Vital Signs Vital signs: Vital Signs Temp 97.6 F 12/10/18 11:27 Pulse 85 12/10/18 11:27 Resp 16 12/10/18 11:27 BP 108/60 12/10/18 11:27 Pulse Ox 99 12/10/18 11:27 Intake & Output 12/09/18 12/10/18 12/10/18 18:59 06:59 18:59 Intake Total 629 701 Output Total 1000 1000 Balance -371 -299 Intake: Intake, IV Titration 50 Amount cefTRIAXone 1 gm In 50 Sodium Chloride 0.9% 50 ml @ 100 mls/hr IVPB Q24HR [facility] Rx#:[id number] Oral 579 701 Output: Urine 1000 1000 Other: Voiding Method Indwelling Catheter Indwelling Catheter Indwelling Catheter - Exam No acute distress S1-S2 heard Decreased breath sounds Abdomen distended Edema - Labs CBC & Chem 7: 12/10/18 10:52 12/10/18 10:52 Labs: Abnormal Lab Results - Last 24 Hours (Table) 12/09/18 12/10/18 12/10/18 Range/Units 09:40 10:52 10:52 WBC 13.9 H 18.6 H (3.8-10.6) k/uL RBC 2.95 L 3.23 L (4.30-5.90) m/uL Hgb 11.0 L 12.1 L (13.0-17.5) gm/dL Hct 33.8 L 37.5 L (39.0-53.0) % MCV 114.7 H 116.2 H (80.0-100.0) fL MCH 37.3 H 37.6 H (25.0-35.0) pg Plt Count 91 L 106 L (150-450) k/uL Neutrophils # 11.7 H (1.3-7.7) k/uL Macrocytosis Marked A Marked A Potassium 3.3 L (3.5-5.1) mmol/L BUN 27 H (9-20) mg/dL Creatinine 1.50 H (0.66-1.25) mg/dL Glucose 131 H (74-99) mg/dL Calcium 8.3 L (8.4-10.2) mg/dL Total Bilirubin 2.5 H (0.2-1.3) mg/dL AST 79 H (17-59) U/L Alkaline Phosphatase 162 H (38-126) U/L Total Protein 5.7 L (6.3-8.2) g/dL Albumin 2.3 L (3.5-5.0) g/dL Microbiology - Last 24 Hours (Table) 12/07/18 18:02 Blood Culture - Preliminary Blood No Growth after 48 hours Assessment and Plan Assessment: #1 acute kidney injury secondary to hemodynamic ATN. #2 ascites status post large volume paracentesis with 8 L of fluid removed. #3 volume overload improving with Diuresis #4 metabolic acidosis secondary to acute kidney injury #5 right renal atrophy Plan: #1 creatinine improving continue with the current diuretic regimen. #2 plan paracentesis early next week for distended belly, give albumin with fluid removal. #3 replace potassium #4 labs in the morning
--- NOTE | 2018-12-10 12:40 | P.PN ---
Subjective Progress Note Date: 12/10/18 This is a 73-year-old male patient of Dr. Salamanca. Patient presented yesterday 12/05/2018 for planned paracentesis was found to have abnormal lab. Patient has a history of ascites and underwent paracentesis yesterday with 8.6 L off. Patient's creatinine was found to be significantly elevated at 4.26 which patient was 2.4 on 11/30/2018. Blood also elevated at 42. Patient reports he's had decreased appetite over the past 4 weeks along with some nausea. Patient denies recent illness or fevers. Patient reports adequate urine output. Patient has a past medical history of CVA, hypertension, osteoarthritis, sleep apnea and thyroid disorder. Patient noted to have increased edema to lower extremities and right upper extremity venous Doppler will be ordered to rule out DVT. Nephrology services consulted for acute kidney injury. Patient started on IV Lasix per nephrology. GI services also consulted for recent paracentesis due to ascites. This time patient denies chest pain or shortness of breath. Patient denies nausea vomiting or diarrhea. Patient denies any urinary burning or frequency. On 12/07/2018 patient is alert and oriented 3 family is at bedside. Patient's creatinine is trending down to 3.21 and bun 39. UA positive for urinary tract infection. Patient started on Rocephin. Urine culture ordered. Patient remains on IV Lasix per nephrology services. Patient denies chest pain or shortness of breath. Patient denies nausea vomiting or diarrhea. Patient denies any urinary burning or frequency. On 12/08/2018 patient is alert and oriented 3. Creatinine trending down to 1.90 bun 30. white blood cell also trending down to 13.8. Patient remains on Rocephin for urinary tract infection. Patient remains on IV Lasix 60 mg every 12 hours. This time patient denies chest pain or shortness of breath. Patient denies nausea vomiting or diarrhea. Patient denies any urinary burning or frequency. On 12/09/2018 patient was seen and examined on the medical floor he is alert and oriented 3 in no apparent distress he denies any complaints at this time there is no fever or chills no headache or dizziness no chest pain no shortness of breath no cough no nausea or vomiting no abdominal pain no diarrhea and no urinary symptoms. On 12/10/2018 patient was seen on the medical floor, daughter at the bedside, he is alert and oriented 3 in no apparent distress, he denies any symptoms at this time there is no fever or chills no headache or dizziness no chest pain no shortness of breath no cough no nausea or vomiting no abdominal pain no diarrhea and no urinary symptoms diminished slightly more distended than yesterday Will monitor closely Objective - Vital Signs Vital signs: Vital Signs Temp 97.6 F 12/10/18 11:27 Pulse 85 12/10/18 11:27 Resp 16 12/10/18 11:27 BP 108/60 12/10/18 11:27 Pulse Ox 99 12/10/18 11:27 Intake & Output 12/09/18 12/10/18 12/10/18 18:59 06:59 18:59 Intake Total 629 701 Output Total 1000 1000 Balance -371 -299 Intake: Intake, IV Titration 50 Amount cefTRIAXone 1 gm In 50 Sodium Chloride 0.9% 50 ml @ 100 mls/hr IVPB Q24HR [facility] Rx#:[id number] Oral 579 701 Output: Urine 1000 1000 Other: Voiding Method Indwelling Catheter Indwelling Catheter Indwelling Catheter - Exam In general patient is alert and oriented 3 in no apparent distress Head normocephalic and atraumatic Neck supple no JVD no goiter Lungs clear to auscultation bilaterally no wheezing or crackles Heart regular rate and rhythm S1-S2, no rub or gallop Abdomen is soft and rounded nontender to palpation Extremities +2 nonpitting edema bilateral lower extremities. +1 edema to right upper extremity with erythema Neuro no gross focal neurological deficit - Labs CBC & Chem 7: 12/10/18 10:52 12/10/18 10:52 Labs: Abnormal Lab Results - Last 24 Hours (Table) 12/09/18 12/10/18 12/10/18 Range/Units 09:40 10:52 10:52 WBC 13.9 H 18.6 H (3.8-10.6) k/uL RBC 2.95 L 3.23 L (4.30-5.90) m/uL Hgb 11.0 L 12.1 L (13.0-17.5) gm/dL Hct 33.8 L 37.5 L (39.0-53.0) % MCV 114.7 H 116.2 H (80.0-100.0) fL MCH 37.3 H 37.6 H (25.0-35.0) pg Plt Count 91 L 106 L (150-450) k/uL Neutrophils # 11.7 H (1.3-7.7) k/uL Macrocytosis Marked A Marked A Potassium 3.3 L (3.5-5.1) mmol/L BUN 27 H (9-20) mg/dL Creatinine 1.50 H (0.66-1.25) mg/dL Glucose 131 H (74-99) mg/dL Calcium 8.3 L (8.4-10.2) mg/dL Total Bilirubin 2.5 H (0.2-1.3) mg/dL AST 79 H (17-59) U/L Alkaline Phosphatase 162 H (38-126) U/L Total Protein 5.7 L (6.3-8.2) g/dL Albumin 2.3 L (3.5-5.0) g/dL Microbiology - Last 24 Hours (Table) 12/07/18 18:02 Blood Culture - Preliminary Blood No Growth after 48 hours Assessment and Plan Plan: 1. Acute kidney injury. Creatinine elevated at 4.26 and bun 42. Baseline creatinine appears to be 1. Nephrology services have been consulted we'll continue to monitor. Per nephrology Lasix 60 mg twice daily has been ordered. IV albumin 25 g 2 doses ordered. Renal ultrasound ordered. Home medications of Lasix and Aldactone on hold. Patient started on IV Lasix per nephrology. Renal ultrasound completed showing cortical thinning with small sized kidneys consistent with product of chronic medical renal disease which is more prominent right kidney versus left kidney. No hydronephrosis bilaterally. Creatinine improving to 1.90 and BUN 30. 2. Abdominal ascites with recent paracentesis. Patient underwent paracentesis on 12/05/2018 with 8.7 L removed. GI services have been consulted 3. Urinary tract infection. Patient started on Rocephin urine culture ordered. 4. Volume overload. Venous Doppler bilateral lower extremities negative for DVT. Right upper arm ultrasound negative for DVT. remains on Lasix 60 mg every 12 hours 5. History of nephrolithiasis status post lithotripsy in 2016 6. History of essential hypertension 7. History of CVA 8. History of sleep apnea 9. History of hypothyroidism. Home meds resumed 10. Cirrhosis of the liver. Possible EtOH history per GI 11. Hypokalemia. Potassium replacement protocol will continue to monitor DVT prophylaxis Lovenox. GI prophylaxis Protonix Gastroenterology following patient may need repeat paracentesis prior to discharge
--- NOTE | 2018-12-10 18:25 | P.PN ---
Subjective Progress Note Date: 12/10/18 Principal diagnosis: Cirrhosis, ascites, abdominal distention Patient seen extending bedside. Patient just had a nonbloody bowel movement. Discussion with the patient's daughter who feels that the patient has been having some slowed speech at night with concern over possible encephalopathy. No nausea or vomiting reported. He is tolerating his diet. Objective - Vital Signs Vital signs: Vital Signs Temp 97.6 F 12/10/18 11:27 Pulse 85 12/10/18 11:27 Resp 16 12/10/18 11:27 BP 108/60 12/10/18 11:27 Pulse Ox 99 12/10/18 11:27 Intake & Output 12/09/18 12/10/18 12/10/18 18:59 06:59 18:59 Intake Total 629 701 751 Output Total 1000 1000 700 Balance -371 -299 51 Intake: Intake, IV Titration 50 50 Amount cefTRIAXone 1 gm In 50 50 Sodium Chloride 0.9% 50 ml @ 100 mls/hr IVPB Q24HR [facility] Rx#:[id number] Oral 579 701 701 Output: Urine 1000 1000 700 Other: Voiding Method Indwelling Catheter Indwelling Catheter Indwelling Catheter # Bowel Movements 1 - Exam On physical examination, patient appears comfortable in no apparent distress. HEAD: Normocephalic, atraumatic. EYES: No scleral icterus. No conjunctival injection. MOUTH: No lesions, tongue midline. NECK: Trachea midline, no gross abnormalities. CHEST: Decreased air entry bilaterally. HEART: S1-S2 appreciated. ABDOMEN: Soft, distended with positive fluid wave. Bowel sounds are positive. No organomegaly. No guarding or rigidity. EXTREMITIES: Bilateral pedal edema. SKIN: No rashes, jaundice. NEUROLOGIC: Alert and oriented x3, no asterixis. No focal deficits. - Labs CBC & Chem 7: 12/10/18 10:52 12/10/18 10:52 Labs: Abnormal Lab Results - Last 24 Hours (Table) 12/10/18 12/10/18 Range/Units 10:52 10:52 WBC 18.6 H (3.8-10.6) k/uL RBC 3.23 L (4.30-5.90) m/uL Hgb 12.1 L (13.0-17.5) gm/dL Hct 37.5 L (39.0-53.0) % MCV 116.2 H (80.0-100.0) fL MCH 37.6 H (25.0-35.0) pg Plt Count 106 L (150-450) k/uL Neutrophils # 15.9 H (1.3-7.7) k/uL Macrocytosis Marked A Potassium 3.3 L (3.5-5.1) mmol/L BUN 27 H (9-20) mg/dL Creatinine 1.50 H (0.66-1.25) mg/dL Glucose 131 H (74-99) mg/dL Calcium 8.3 L (8.4-10.2) mg/dL Total Bilirubin 2.5 H (0.2-1.3) mg/dL AST 79 H (17-59) U/L Alkaline Phosphatase 162 H (38-126) U/L Total Protein 5.7 L (6.3-8.2) g/dL Albumin 2.3 L (3.5-5.0) g/dL Microbiology - Last 24 Hours (Table) 12/07/18 18:02 Blood Culture - Preliminary Blood No Growth after 48 hours Assessment and Plan (1) Decompensation of cirrhosis of liver Narrative/Plan: 73-year-old male with multiple medical comorbidities as well as suspicion for decompensated cirrhosis of the liver. Originally seen in the gastroenterology clinic in the outpatient setting for new onset ascites. Computed tomography scan at that time it showed a nodular suspicious for cirrhosis with fluid studies on a ascites also consistent with cirrhosis. Patient denied excessive alcohol use in the clinic but does have hospitalization in 2018 at which time alcohol level was found to be 211. Other serologies have been negative for etiology of liver disease. No reports of encephalopathy or prior GI bleeding, but patient has developed worsened ascites. Status post paracentesis patient had reported symptomatic improvement, does feel somewhat more distended again. Current Visit: Yes Status: Acute Code(s): K72.90 - HEPATIC FAILURE, UNSPECIFIED WITHOUT COMA SNOMED Code(s): 434586451 (2) Ascites Current Visit: Yes Status: Acute Code(s): R18.8 - OTHER ASCITES SNOMED Code(s): 674725702 Plan: Supportive care Okay for low-sodium, renal diet Continue to monitor CBC, CMP Nephrology following, appreciate the recommendations, currently receiving diuresis with Lasix 60 mg by mouth twice daily and Aldactone 50 mg by mouth twice daily We will reorder ultrasound paracentesis in the setting of ascites, with cell count and culture due to leukocytosis Ammonia level also order, no asterixis on physical exam blood patient started and son feel he may be slurring speech with subclinical encephalopathy at night Consider addition of rifaximin and lactulose pending morning ammonia Fluid restriction per nephrology Alcohol abstinence Thank you for allowing us to participate in the care of this patient we will continue to follow
[2018-12-11] MEDS: LEVOTHYROXINE 50 MCG TAB PO SCH (05:24)
--- NOTE | 2018-12-11 08:09 | P.PN ---
Subjective Patient is seen in follow-up for acute kidney injury. Patient's baseline creatinine is near 1 and was elevated at 4.26 and he was sent to the hospital. It was down to 1.5 as of yesterday. Currently has a Goldstein catheter in place. Maintained on oral Lasix 60 mg twice daily and Aldactone 50 mg twice daily. He is nonoliguric. Lower extremity edema improved. Vital signs are stable. General: The patient appeared well nourished and normally developed. HEENT: Head exam is unremarkable. Neck is without jugular venous distension. LUNGS: Lungs are clear to auscultation and percussion. Breath sounds decreased. HEART: Rate and Rhythm are regular. First and second heart sounds normal. No murmurs, rubs or gallops. ABDOMEN: Bowel sounds decreased. Moderate distention noted. EXTREMITITES: Trace edema. Objective - Vital Signs Vital signs: Vital Signs Temp 97.8 F 12/11/18 04:59 Pulse 84 12/11/18 04:59 Resp 16 12/11/18 04:59 BP 97/57 12/11/18 04:59 Pulse Ox 97 12/11/18 04:59 Intake & Output 12/10/18 12/11/18 12/11/18 18:59 06:59 18:59 Intake Total 751 701 Output Total 700 700 Balance 51 1 Intake: Intake, IV Titration 50 Amount cefTRIAXone 1 gm In 50 Sodium Chloride 0.9% 50 ml @ 100 mls/hr IVPB Q24HR [facility] Rx#:[id number] Oral 701 701 Output: Urine 700 700 Other: Voiding Method Indwelling Catheter Indwelling Catheter # Bowel Movements 2 - Labs CBC & Chem 7: 12/10/18 10:52 12/10/18 17:35 Labs: Abnormal Lab Results - Last 24 Hours (Table) 12/10/18 12/10/18 12/10/18 Range/Units 10:52 10:52 17:35 WBC 18.6 H (3.8-10.6) k/uL RBC 3.23 L (4.30-5.90) m/uL Hgb 12.1 L (13.0-17.5) gm/dL Hct 37.5 L (39.0-53.0) % MCV 116.2 H (80.0-100.0) fL MCH 37.6 H (25.0-35.0) pg Plt Count 106 L (150-450) k/uL Neutrophils # 15.9 H (1.3-7.7) k/uL Macrocytosis Marked A Potassium 3.3 L 5.4 H (3.5-5.1) mmol/L BUN 27 H (9-20) mg/dL Creatinine 1.50 H (0.66-1.25) mg/dL Glucose 131 H (74-99) mg/dL Calcium 8.3 L (8.4-10.2) mg/dL Total Bilirubin 2.5 H (0.2-1.3) mg/dL AST 79 H (17-59) U/L Alkaline Phosphatase 162 H (38-126) U/L Total Protein 5.7 L (6.3-8.2) g/dL Albumin 2.3 L (3.5-5.0) g/dL Microbiology - Last 24 Hours (Table) 12/07/18 18:02 Blood Culture - Preliminary Blood No Growth after 72 hours Assessment and Plan Plan: Assessment: 1. Acute kidney injury mostly prerenal secondary to diuresis and large volume paracentesis. Creatinine was 4.26 on admission and was down to 1.5 as of yesterday. Baseline creatinine near 1. No evidence of hydronephrosis noted on CAT scan done on November 21, 2018. Trace proteinuria on UA. 2. Ascites. Status post paracentesis on December 05 for nearly 8 L drained. ?Etiology liver disease. Gastroenterology following. 3. Volume overload. Improved with diuresis. 4. Metabolic acidosis secondary to acute kidney injury maintained on oral sodium bicarbonate. 5. History of nephrolithiasis status post lithotripsy in 2016. 6. Hypokalemia secondary to diuresis. Status post replacement. 7. Right renal atrophy. Plan: Maintain Lasix 60 mg orally twice daily. Maintain Aldactone 50 mg twice daily. Low-salt diet with 1200 mL fluid restriction. Strict I's and O's. Avoid nephrotoxins. Scheduled for paracentesis today. I will give him 50 g of albumin prior to the procedure and an additional 25 g if more than 8 L drained. Repeat BMP and mag in 2-3 days postdischarge. Follow up outpatient in the next 1-2 weeks.
[2018-12-11 08:34] LABS: INR 1.4 (<1.2); Prothrombin Time 14.1 sec (9.0-12.0)
[2018-12-11] MEDS: ALBUMIN HUMAN 25% 50 ML in EMPTY BAG 1 BAG IVPB SCH ×4 (08:38→10:26)
[2018-12-11 08:45] LABS: Albumin 2.3 g/dL (3.5-5.0); Bilirubin,Unconjugated 1.3 mg/dL (0.0-1.1); Calcium 8.2 mg/dL (8.4-10.2); Potassium 3.7 mmol/L (3.5-5.1); Total Bilirubin 2.3 mg/dL (0.2-1.3); Total Protein 5.7 g/dL (6.3-8.2)
[2018-12-11 09:17] LABS: Basophils # (A) 0.1 k/uL (0-0.2); Basophils % (A) 0 %; Eosinophils # (A) 0.5 k/uL (0-0.7); Eosinophils % (A) 3 %; HCT 36.1 % (39.0-53.0); HGB 11.8 gm/dL (13.0-17.5); Lymphocytes # (A) 1.9 k/uL (1.0-4.8); Lymphocytes % (A) 9 %; MCH 37.8 pg (25.0-35.0); MCHC 32.6 g/dL (31.0-37.0); MCV 115.7 fL (80.0-100.0); Macrocytosis Marked; Mean Platelet Volume 8.4; Monocytes # (A) 0.9 k/uL (0-1.0); Monocytes % (A) 4 %; Neutrophils # (A) 16.7 k/uL (1.3-7.7); Neutrophils % (A) 82 %; Platelet Count 100 k/uL (150-450); RBC 3.12 m/uL (4.30-5.90); RDW 13.6 % (11.5-15.5); WBC 20.3 k/uL (3.8-10.6)
[2018-12-11] MEDS: MIDODRINE 5 MG TAB PO SCH ×3 (11:28→17:39)
[2018-12-11] MEDS: FUROSEMIDE 20 MG TAB PO SCH ×2 (11:28→17:39)
[2018-12-11] MEDS: SODIUM BICARBONATE TAB 650 MG TAB PO SCH ×2 (11:28→21:20)
[2018-12-11] MEDS: SPIRONOLACTONE 25 MG TAB PO SCH ×2 (11:29→21:20)
[2018-12-11] MEDS: PANTOPRAZOLE 40 MG TABLET PO SCH (11:29)
[2018-12-11] MEDS: ACETAMINOPHEN TAB 325 MG TAB PO PRN (12:00)
--- NOTE | 2018-12-11 12:12 | P.PN ---
Subjective Progress Note Date: 12/11/18 This is a 73-year-old male patient of Dr. Salamanca. Patient presented yesterday 12/05/2018 for planned paracentesis was found to have abnormal lab. Patient has a history of ascites and underwent paracentesis yesterday with 8.6 L off. Patient's creatinine was found to be significantly elevated at 4.26 which patient was 2.4 on 11/30/2018. Blood also elevated at 42. Patient reports he's had decreased appetite over the past 4 weeks along with some nausea. Patient denies recent illness or fevers. Patient reports adequate urine output. Patient has a past medical history of CVA, hypertension, osteoarthritis, sleep apnea and thyroid disorder. Patient noted to have increased edema to lower extremities and right upper extremity venous Doppler will be ordered to rule out DVT. Nephrology services consulted for acute kidney injury. Patient started on IV Lasix per nephrology. GI services also consulted for recent paracentesis due to ascites. This time patient denies chest pain or shortness of breath. Patient denies nausea vomiting or diarrhea. Patient denies any urinary burning or frequency. On 12/07/2018 patient is alert and oriented 3 family is at bedside. Patient's creatinine is trending down to 3.21 and bun 39. UA positive for urinary tract infection. Patient started on Rocephin. Urine culture ordered. Patient remains on IV Lasix per nephrology services. Patient denies chest pain or shortness of breath. Patient denies nausea vomiting or diarrhea. Patient denies any urinary burning or frequency. On 12/08/2018 patient is alert and oriented 3. Creatinine trending down to 1.90 bun 30. white blood cell also trending down to 13.8. Patient remains on Rocephin for urinary tract infection. Patient remains on IV Lasix 60 mg every 12 hours. This time patient denies chest pain or shortness of breath. Patient denies nausea vomiting or diarrhea. Patient denies any urinary burning or frequency. On 12/09/2018 patient was seen and examined on the medical floor he is alert and oriented 3 in no apparent distress he denies any complaints at this time there is no fever or chills no headache or dizziness no chest pain no shortness of breath no cough no nausea or vomiting no abdominal pain no diarrhea and no urinary symptoms. On 12/10/2018 patient was seen on the medical floor, daughter at the bedside, he is alert and oriented 3 in no apparent distress, he denies any symptoms at this time there is no fever or chills no headache or dizziness no chest pain no shortness of breath no cough no nausea or vomiting no abdominal pain no diarrhea and no urinary symptoms diminished slightly more distended than yesterday Will monitor closely On 12/11/2018 patient is alert and oriented 3. Family at bedside. Patient underwent paracentesis in which 3.6 L was removed. Patient's white blood cell increasing to 20.3. Repeat chest x-ray ordered. Stool for C. diff ordered. Patient remains on Rocephin. Patient denies any chest pain or shortness of breath. Patient denies any upper respiratory symptoms. Patient denies any burning or frequency. Patient denies any nausea or vomiting. Objective - Vital Signs Vital signs: Vital Signs Temp 98.1 F 12/11/18 08:15 Pulse 76 12/11/18 11:00 Resp 16 12/11/18 11:00 BP 107/61 12/11/18 11:00 Pulse Ox 97 12/11/18 11:00 Intake & Output 12/10/18 12/11/18 12/11/18 18:59 06:59 18:59 Intake Total 751 701 Output Total 700 700 Balance 51 1 Intake: Intake, IV Titration 50 Amount cefTRIAXone 1 gm In 50 Sodium Chloride 0.9% 50 ml @ 100 mls/hr IVPB Q24HR [facility] Rx#:[id number] Oral 701 701 Output: Urine 700 700 Other: Voiding Method Indwelling Catheter Indwelling Catheter # Bowel Movements 2 - Exam Head normocephalic Neck supple Lungs clear to auscultation bilaterally no wheezing or crackles Heart regular rate and rhythm S1-S2, no rub or gallop Abdomen is soft and rounded nontender to palpation Extremities +2 nonpitting edema bilateral lower extremities. +1 edema to right upper extremity with erythema Neuro alert and orientated to 3 - Labs CBC & Chem 7: 12/11/18 08:12 12/11/18 08:12 Labs: Abnormal Lab Results - Last 24 Hours (Table) 12/10/18 12/10/18 12/11/18 Range/Units 10:52 17:35 08:12 WBC 18.6 H 20.3 H (3.8-10.6) k/uL RBC 3.23 L 3.12 L (4.30-5.90) m/uL Hgb 12.1 L 11.8 L (13.0-17.5) gm/dL Hct 37.5 L 36.1 L (39.0-53.0) % MCV 116.2 H 115.7 H (80.0-100.0) fL MCH 37.6 H 37.8 H (25.0-35.0) pg Plt Count 106 L 100 L (150-450) k/uL Neutrophils # 15.9 H (1.3-7.7) k/uL Macrocytosis Marked A Marked A PT (9.0-12.0) sec INR (<1.2) Sodium (137-145) mmol/L Potassium 5.4 H (3.5-5.1) mmol/L BUN (9-20) mg/dL Creatinine (0.66-1.25) mg/dL Glucose (74-99) mg/dL Calcium (8.4-10.2) mg/dL Total Bilirubin (0.2-1.3) mg/dL Unconjugated Bilirubin (0.0-1.1) mg/dL Delta Bilirubin (0.0-0.2) mg/dL AST (17-59) U/L Alkaline Phosphatase (38-126) U/L Total Protein (6.3-8.2) g/dL Albumin (3.5-5.0) g/dL 12/11/18 12/11/18 Range/Units 08:12 08:12 WBC (3.8-10.6) k/uL RBC (4.30-5.90) m/uL Hgb (13.0-17.5) gm/dL Hct (39.0-53.0) % MCV (80.0-100.0) fL MCH (25.0-35.0) pg Plt Count (150-450) k/uL Neutrophils # (1.3-7.7) k/uL Macrocytosis PT 14.1 H (9.0-12.0) sec INR 1.4 H (<1.2) Sodium 135 L (137-145) mmol/L Potassium (3.5-5.1) mmol/L BUN 28 H (9-20) mg/dL Creatinine 1.44 H (0.66-1.25) mg/dL Glucose 130 H (74-99) mg/dL Calcium 8.2 L (8.4-10.2) mg/dL Total Bilirubin 2.3 H (0.2-1.3) mg/dL Unconjugated Bilirubin 1.3 H (0.0-1.1) mg/dL Delta Bilirubin 1.0 H (0.0-0.2) mg/dL AST 72 H (17-59) U/L Alkaline Phosphatase 165 H (38-126) U/L Total Protein 5.7 L (6.3-8.2) g/dL Albumin 2.3 L (3.5-5.0) g/dL Microbiology - Last 24 Hours (Table) 12/07/18 18:02 Blood Culture - Preliminary Blood No Growth after 72 hours Assessment and Plan Assessment: 1. Acute kidney injury. Creatinine elevated at 4.26 and bun 42. Baseline creatinine appears to be 1. Nephrology services have been consulted we'll continue to monitor. Per nephrology Lasix 60 mg twice daily has been ordered. IV albumin 25 g 2 doses ordered. Renal ultrasound ordered. Home medications of Lasix and Aldactone on hold. Patient started on IV Lasix per nephrology. Renal ultrasound completed showing cortical thinning with small sized kidneys consistent with product of chronic medical renal disease which is more prominent right kidney versus left kidney. No hydronephrosis bilaterally. Creatinine improving 1.4 and bun 20. Aldactone and Lasix by mouth added per cardiology 2. Abdominal ascites with recent paracentesis. Patient underwent paracentesis on 12/05/2018 with 8.7 L removed. GI services have been consulted. Patient underwent paracentesis today 12/11/2017 with 3.6 L removed paracentesis fluid culture ordered 3. Urinary tract infection. Patient started on Rocephin urine culture ordered. 4. Volume overload. Venous Doppler bilateral lower extremities negative for DVT. Right upper arm ultrasound negative for DVT. remains on Lasix 60 mg every 12 hours 5. History of nephrolithiasis status post lithotripsy in 2016 6. History of essential hypertension 7. History of CVA 8. History of sleep apnea 9. History of hypothyroidism. Home meds resumed 10. Cirrhosis of the liver. Possible EtOH history per GI 11. Hypokalemia. Potassium replacement protocol will continue to monitor 12. Leukocytosis. White blood cell increasing to 20.3. Repeat chest x-ray ordered. Stool for C. diff ordered 13. Slow speech. No other neuro symptoms noted. Head CT completed showing age-related atrophic and chronic small vessel ischemic changes without acute intracranial process seen at this time. Ammonia level 27 DVT prophylaxis SCDs due to thrombocytopenia. GI prophylaxis Protonix I performed an examination of the patient and discussed their management with the Nurse Practitioner. I have reviewed the Nurse Practitioner's notes and agree with the documented findings and plan of care
--- NOTE | 2018-12-11 13:20 | US ---
Therapeutic paracentesis. DATE OF EXAM: 12/11/2018 CLINICAL HISTORY: Ascites The procedure was discussed with the patient. The risks, complications, benefits, and alternatives we re discussed and any questions were answered. Informed consent was obtained. The patient was placed s upine on the ultrasound table and prepped and draped in the usual sterile fashion. All elements of maximal barrier technique were utilized. Under ultrasound guidance, access into the right lower quadrant was obtained, via the paracentesis catheter system and direct ultrasound guidanc e. Approximately 3.7 liters of straw-colored fluid was removed. The patient was stable throughout the pr ocedure and remained stable upon discharge from Department of Radiology. IMPRESSION: Successful therapeutic paracentesis under ultrasound guidance.
--- NOTE | 2018-12-11 14:49 | XR ---
EXAMINATION TYPE: XR chest 2V DATE OF EXAM: 12/11/2018 COMPARISON: Prior chest x-ray 12/06/2018 HISTORY: Abnormal chest x-ray, cough TECHNIQUE: Frontal and lateral views of the chest are obtained. FINDINGS: Bibasilar increased density is again noted, there is blunting the posterior costophrenic a ngle on the right. No pneumothorax. Patient is rotated. Questionable small lucency beneath the right hemidiaphragm. Extensive arthropathy noted in the shoulders. Heart size is stable. IMPRESSION: Probable basilar atelectasis, possible associated effusion. Difficult to exclude pneumop eritoneum, follow-up is recommended. A [place] level critical message alert has been initiated for Eric Spaulding MD via the [employer] System on 12/11/2018 2:46 PM. This message alert has been sent to Eric Spaulding MD via the preferences provided by the clinician for the receipt of Radiology Critical Findings. Message ID [id number].
[2018-12-11 16:17] LABS: Appearance,BF Clear; Color,BF Yellow; Nucleated Cells, Body Fluid 14 /uL; RBC, Body Fluid 29 /uL
--- NOTE | 2018-12-11 19:48 | PN ---
PROGRESS NOTE DATE OF DICTATION: 12/11/2018 The patient is a 73-year-old pleasant white male with history of decompensated liver disease with cirrhosis of the liver, admitted to the hospital with acute renal failure with elevated BUN and creatinine. He underwent large-volume paracentesis, and approximately 7 L of fluid was aspirated this morning, and results are still pending at the time of this dictation. The patient was already on oral Lasix and Aldactone for ascites. He denies any complaints today. Reports no abdominal pain. He feels much better after the paracentesis. Reports no lower extremity swelling. PHYSICAL EXAMINATION: GENERAL: He appears comfortable. No apparent distress. VITAL SIGNS: Stable. Blood pressure is 110/61, pulse rate 76, temperature 98.1. HEENT EXAMINATION: Unremarkable. Conjunctivae pink. Sclerae anicteric. Oral cavity no lesions. NECK: No JVD or lymph node enlargement. CHEST: Clear to auscultation. HEART: Regular rate and rhythm. ABDOMEN: Soft, slightly distended, but bowel sounds are positive. No organomegaly. EXTREMITIES: No pedal edema. SKIN: No rashes. NEUROLOGIC: Alert and oriented x3. No focal deficits. LABS: Labs from today show WBC 20.3, hemoglobin 11.8, platelets are 100. INR is 1.4. BUN 28, creatinine 1.44. Total bilirubin is 2.3. AST and ALT are 72 and 27, respectively. Alkaline phosphatase is within normal limits. IMPRESSION: 1. Cirrhosis of the liver, diagnosed recently. 2. New-onset ascites, status post large-volume paracentesis; 7 L of fluid was removed today. Fluid results are still pending at the time of this dictation. Presently on Lasix 60 mg daily and Aldactone 50 mg twice daily. 3. Acute kidney injury. Nephrology following the patient closely. 4. Leukocytosis. Presently on broad-spectrum antibiotics. Patient was diagnosed with urinary tract infection and already on Rocephin. Cultures are still pending. Cannot rule out possibility of spontaneous bacterial peritonitis causing leukocytosis. RECOMMENDATIONS: 1. Continue with broad-spectrum antibiotics. 2. Continue with the current diuretic regimen. 3. Follow labs closely. 4. Low-salt diet. 5. Await fluid results, including cytology. We will follow the patient closely during his hospital stay. Thank you for this consultation. MMODL / IJN: [id number] /
[2018-12-11] MEDS ORDERED: FLUCONAZOLE 100 MG TAB PO ONE (21:57)
--- NOTE | 2018-12-11 22:11 | P.CONS ---
History of Present Illness - Reason for Consult Consult date: 12/11/18 Leukocytosis Requesting physician: Eric Spaulding - Chief Complaint Abnormal labs increasing abdominal distention lower extremity swelling - History of Present Illness Patient is a 73 -year-old male has been recently diagnosed with decompensated liver cirrhosis possibly related to alcohol, patient was scheduled to have a paracentesis in outpatient setting patient did have blood work drawn before the paracentesis noticed to have elevated creatinine patient did have 8 L of fluid removed and subsequently patient was sent to the ER for further evaluation of his underlying acute renal insufficiency patient was complaining of feeling weak and tired with more swelling in the lower extremity patient noticed to have elevated white count of 16,000 on admission he also have a positive UA with concern for possible UTI the patient has been treated with IV Rocephin blood and urine cultures subsequently came back negative however the patient continued to have worsening of the white count with white count was up to 20,000 today for which infectious disease was consulted for further recommendation Patient has been afebrile throughout his hospital stay, the patient currently denies having any headache or URI symptoms no chest pain shortness of breath or cough patient did have abdominal distention and is status post paracentesis done by radiology today with the fluid cell count and cultures currently pending patient denies any urinary symptoms swelling of the legs have decreased currently with no open wound or any drainage and no joint swelling Review of Systems Positive points has been mentioned in HPI rest of the systems are negative Past Medical History Past Medical History: CVA/TIA, Hypertension, Osteoarthritis (OA), Sleep Apnea/CPAP/BIPAP, Thyroid Disorder Additional Past Medical History / Comment(s): HX TIA,HX KIDNEY STONE, NO CPAP FOR SLEEP APNEA, History of Any Multi-Drug Resistant Organisms: None Reported Past Surgical History: Tonsillectomy Additional Past Surgical History / Comment(s): LITHOTRIPSY, RT KNEE ARTHROSCOPY, right hip replacement, paracentesis Past Anesthesia/Blood Transfusion Reactions: No Reported Reaction Past Psychological History: No Psychological Hx Reported Smoking Status: Never smoker Past Alcohol Use History: Occasional Past Drug Use History: None Reported - Past Family History Mother Family Medical History: Cancer Additional Family Medical History / Comment(s): colon Medications and Allergies Home Medications Medication Instructions Recorded Confirmed Type Levothyroxine Sodium [Synthroid] 50 mcg PO DAILY 11/23/18 12/05/18 History Furosemide [Lasix] 60 mg PO BID 12/05/18 12/05/18 History Loperamide HCl [Imodium A-D] 2 - 4 mg PO QID PRN 12/05/18 12/05/18 History Ondansetron HCl [Zofran] 8 mg PO Q8H PRN 12/05/18 12/05/18 History Spironolactone 100 mg PO DAILY 12/05/18 12/05/18 History Allergies Allergy/AdvReac Type Severity Reaction Status Date / Time No Known Allergies Allergy Verified 12/05/18 17:40 Physical Exam Vitals: Vital Signs Temp Pulse Resp BP BP Pulse Ox 12/11/18 16:00 80 16 12/11/18 12:26 97.4 F L 82 17 104/62 99 12/11/18 11:00 76 16 107/61 97 12/11/18 10:31 75 16 109/56 96 12/11/18 10:05 76 16 110/61 97 12/11/18 08:15 98.1 F 100 17 135/83 99 12/11/18 08:00 82 17 12/11/18 04:59 97.8 F 84 16 97/57 97 12/10/18 23:15 85 18 12/10/18 20:10 97.6 F 85 18 106/72 99 Intake and Output 12/11/18 12/11/18 12/11/18 06:59 14:59 22:59 Intake Total 461 1141 Output Total 700 500 500 Balance -239 641 -500 Intake: Intake, IV Titration 200 Amount Albumin Human 25% 50 ml 200 In Empty Bag 1 bag @ 200 mls/hr IVPB Q15M [facility] Rx#: [id number] Oral 461 941 Output: Urine 700 500 500 Other: Voiding Method Indwelling Catheter Indwelling Catheter Indwelling Catheter # Voids 1 GENERAL DESCRIPTION: Elderly male lying in bed, no distress. No tachypnea or accessory muscle of respiration use. HEENT: Shows Pallor , no scleral icterus. Oral mucous membrane is dry. No pharyngeal erythema or thrush NECK: Trachea central, no thyromegaly. LUNGS: Unlabored breathing. Clear to auscultation anteriorly. No wheeze or crackle. HEART: S1, S2, regular rate and rhythm. No loud murmur ABDOMEN: Soft, abdominal distention but no tenderness , no guarding or rigidity EXTREMITIES: No edema of feet. SKIN: No rash, no masses palpable. Multiple skin bruises was noticed NEUROLOGICAL: The patient is awake, alert, oriented x3, mood and affect normal. Results CBC & Chem 7: 12/11/18 08:12 12/11/18 08:12 Labs: Abnormal Lab Results - Last 24 Hours (Table) 12/10/18 12/11/18 12/11/18 Range/Units 17:35 08:12 08:12 WBC 20.3 H (3.8-10.6) k/uL RBC 3.12 L (4.30-5.90) m/uL Hgb 11.8 L (13.0-17.5) gm/dL Hct 36.1 L (39.0-53.0) % MCV 115.7 H (80.0-100.0) fL MCH 37.8 H (25.0-35.0) pg Plt Count 100 L (150-450) k/uL Neutrophils # 16.7 H (1.3-7.7) k/uL Macrocytosis Marked A PT (9.0-12.0) sec INR (<1.2) Sodium 135 L (137-145) mmol/L Potassium 5.4 H (3.5-5.1) mmol/L BUN 28 H (9-20) mg/dL Creatinine 1.44 H (0.66-1.25) mg/dL Glucose 130 H (74-99) mg/dL Calcium 8.2 L (8.4-10.2) mg/dL Total Bilirubin 2.3 H (0.2-1.3) mg/dL Unconjugated Bilirubin 1.3 H (0.0-1.1) mg/dL Delta Bilirubin 1.0 H (0.0-0.2) mg/dL AST 72 H (17-59) U/L Alkaline Phosphatase 165 H (38-126) U/L Total Protein 5.7 L (6.3-8.2) g/dL Albumin 2.3 L (3.5-5.0) g/dL 12/11/18 Range/Units 08:12 WBC (3.8-10.6) k/uL RBC (4.30-5.90) m/uL Hgb (13.0-17.5) gm/dL Hct (39.0-53.0) % MCV (80.0-100.0) fL MCH (25.0-35.0) pg Plt Count (150-450) k/uL Neutrophils # (1.3-7.7) k/uL Macrocytosis PT 14.1 H (9.0-12.0) sec INR 1.4 H (<1.2) Sodium (137-145) mmol/L Potassium (3.5-5.1) mmol/L BUN (9-20) mg/dL Creatinine (0.66-1.25) mg/dL Glucose (74-99) mg/dL Calcium (8.4-10.2) mg/dL Total Bilirubin (0.2-1.3) mg/dL Unconjugated Bilirubin (0.0-1.1) mg/dL Delta Bilirubin (0.0-0.2) mg/dL AST (17-59) U/L Alkaline Phosphatase (38-126) U/L Total Protein (6.3-8.2) g/dL Albumin (3.5-5.0) g/dL Microbiology - Last 24 Hours (Table) 12/07/18 18:02 Blood Culture - Preliminary Blood No Growth after 72 hours Assessment and Plan Assessment: 1-patient with leukocytosis in this patient who did have history of decompensated liver cirrhosis possibly related to alcohol, admitted to the hospital with acute on chronic renal failure, in this patient who did not have any fever throughout his hospital stay patient does not look toxic he did have a positive with a culture has been negative with likely etiology of his leukocytosis possibly reactive, related to possible SBP , question of C. diff colitis as the patient did have diarrhea versus possible yeast infection in this patient has been in all hospital has been exposed antibiotics Plan: 1-await ascitic fluid cell count and depression from a paracentesis done this afternoon, ascitic fluid should had been sent for culture as well 2-we'll check a stool for C. diff and check pro-calcitonin level 3-empirically start the patient on Diflucan 4-repeat CBC tomorrow we will follow on clinical condition and culture to further adjust medication if needed Thank you for this consultation will follow this patient along with you Time with Patient: Greater than 30
[2018-12-12] MEDS: LEVOTHYROXINE 50 MCG TAB PO SCH (05:51)
[2018-12-12] MEDS: ACETAMINOPHEN TAB 325 MG TAB PO PRN (05:52)
[2018-12-12] MEDS: FUROSEMIDE 20 MG TAB PO SCH ×3 (07:55→17:16)
[2018-12-12] MEDS: SPIRONOLACTONE 25 MG TAB PO SCH ×3 (07:55→21:15)
[2018-12-12] MEDS: MIDODRINE 5 MG TAB PO SCH ×3 (07:55→17:15)
[2018-12-12] MEDS: SODIUM BICARBONATE TAB 650 MG TAB PO SCH ×2 (07:55→21:15)
[2018-12-12] MEDS: PANTOPRAZOLE 40 MG TABLET PO SCH (07:55)
--- NOTE | 2018-12-12 08:49 | P.PN ---
Subjective Progress Note Date: 12/12/18 Principal diagnosis: Decompensated cirrhosis liver acute renal failure Denies abdominal complaints. Afebrile. Status post paracentesis. Objective - Vital Signs Vital signs: Vital Signs Temp 98.1 F 12/12/18 05:35 Pulse 86 12/12/18 05:35 Resp 20 12/12/18 05:35 BP 99/61 12/12/18 05:35 Pulse Ox 95 12/12/18 05:35 Intake & Output 12/11/18 12/12/18 12/12/18 18:59 06:59 18:59 Intake Total 1261 360 Output Total 1000 1100 Balance 261 -740 Intake: Intake, IV Titration 200 Amount Albumin Human 25% 50 ml 200 In Empty Bag 1 bag @ 200 mls/hr IVPB Q15M [facility] Rx#: [id number] Oral 1061 360 Output: Urine 1000 1100 Uretheral (Goldstein) 1100 Other: Voiding Method Indwelling Catheter Indwelling Catheter # Voids 1 - Labs CBC & Chem 7: 12/11/18 08:12 12/11/18 08:12 Labs: Abnormal Lab Results - Last 24 Hours (Table) 12/11/18 Range/Units 08:12 WBC 20.3 H (3.8-10.6) k/uL RBC 3.12 L (4.30-5.90) m/uL Hgb 11.8 L (13.0-17.5) gm/dL Hct 36.1 L (39.0-53.0) % MCV 115.7 H (80.0-100.0) fL MCH 37.8 H (25.0-35.0) pg Plt Count 100 L (150-450) k/uL Neutrophils # 16.7 H (1.3-7.7) k/uL Macrocytosis Marked A Microbiology - Last 24 Hours (Table) 12/11/18 10:30 Gram Stain - Preliminary Ascites Fluid Body Fluid Culture - Preliminary 12/07/18 18:02 Blood Culture - Preliminary Blood No Growth after 96 hours 12/11/18 10:30 Anaerobic Culture - Preliminary Ascites Fluid Assessment and Plan (1) Decompensation of cirrhosis of liver Narrative/Plan: Recently diagnosed with cirrhosis of the liver admitted with decompensation acute renal failure status post large volume paracentesis. Current Visit: Yes Status: Acute Code(s): K72.90 - HEPATIC FAILURE, UNSPECIFIED WITHOUT COMA SNOMED Code(s): 639313545 (2) Portal hypertension Current Visit: Yes Status: Acute Code(s): K76.6 - PORTAL HYPERTENSION SNOMED Code(s): 26783248 (3) Acute renal failure Current Visit: Yes Status: Acute Code(s): N17.9 - ACUTE KIDNEY FAILURE, UNSPECIFIED SNOMED Code(s): 60251270 (4) Ascites Current Visit: Yes Status: Acute Code(s): R18.8 - OTHER ASCITES SNOMED Code(s): 475948904 (5) UTI (urinary tract infection) Current Visit: Yes Status: Acute Code(s): N39.0 - URINARY TRACT INFECTION, SITE NOT SPECIFIED SNOMED Code(s): 30296162 Plan: 1. Continue broad-spectrum antibiotics. Continue with current diuretic regimen nephrology following Lasix 60 mg BID. Aldactone 50 mg twice a day. Preliminary ascitic fluid cultures few PMNs. 2. Low-salt diet. 3. Agreeable for discharge. Follow with Dr. Dudley 3-4 weeks. Outpatient paracentesis as needed. Assessment and plan a care discussed with Dr. Miller
--- NOTE | 2018-12-12 10:21 | P.PN ---
Subjective Patient is seen in follow-up for acute kidney injury. Patient's baseline creatinine is near 1 and was elevated at 4.26 and he was sent to the hospital. Renal function has significantly improved. Creatinine 1.44 today. Currently has a Goldstein catheter in place. Maintained on oral Lasix 60 mg twice daily and Aldactone 50 mg twice daily. He is nonoliguric. Lower extremity edema improved. Vital signs are stable. General: The patient appeared well nourished and normally developed. HEENT: Head exam is unremarkable. Neck is without jugular venous distension. LUNGS: Lungs are clear to auscultation and percussion. Breath sounds decreased. HEART: Rate and Rhythm are regular. First and second heart sounds normal. No murmurs, rubs or gallops. ABDOMEN: Bowel sounds decreased. Moderate distention noted. EXTREMITITES: Trace edema. Objective - Vital Signs Vital signs: Vital Signs Temp 98.1 F 12/12/18 05:35 Pulse 86 12/12/18 05:35 Resp 20 12/12/18 05:35 BP 99/61 12/12/18 05:35 Pulse Ox 95 12/12/18 05:35 Intake & Output 12/11/18 12/12/18 12/12/18 18:59 06:59 18:59 Intake Total 1261 360 Output Total 1000 1100 Balance 261 -740 Weight 84.141 kg Intake: Intake, IV Titration 200 Amount Albumin Human 25% 50 ml 200 In Empty Bag 1 bag @ 200 mls/hr IVPB Q15M [facility] Rx#: [id number] Oral 1061 360 Output: Urine 1000 1100 Uretheral (Goldstein) 1100 Other: Voiding Method Indwelling Catheter Indwelling Catheter # Voids 1 - Labs CBC & Chem 7: 12/11/18 08:12 12/11/18 08:12 Labs: Abnormal Lab Results - Last 24 Hours (Table) 12/11/18 Range/Units 08:12 WBC 20.3 H (3.8-10.6) k/uL RBC 3.12 L (4.30-5.90) m/uL Hgb 11.8 L (13.0-17.5) gm/dL Hct 36.1 L (39.0-53.0) % MCV 115.7 H (80.0-100.0) fL MCH 37.8 H (25.0-35.0) pg Plt Count 100 L (150-450) k/uL Neutrophils # 16.7 H (1.3-7.7) k/uL Macrocytosis Marked A Microbiology - Last 24 Hours (Table) 12/11/18 10:30 Gram Stain - Preliminary Ascites Fluid Body Fluid Culture - Preliminary 12/07/18 18:02 Blood Culture - Preliminary Blood No Growth after 96 hours 12/11/18 10:30 Anaerobic Culture - Preliminary Ascites Fluid Assessment and Plan Plan: Assessment: 1. Acute kidney injury mostly prerenal secondary to diuresis and large volume paracentesis. Creatinine was 4.26 on admission and is down to 1.44 today. Baseline creatinine near 1. No evidence of hydronephrosis noted on CAT scan d one on November 21, 2018. Trace proteinuria on UA. 2. Ascites. Status post paracentesis on December 05 for nearly 8 L drained. Another paracentesis done on December 11 with 3.7 L drained. ?Etiology liver disea se. Gastroenterology following. 3. Volume overload. Improved with diuresis. 4. Metabolic acidosis secondary to acute kidney injury maintained on oral sodium bicarbonate. 5. History of nephrolithiasis status post lithotripsy in 2016. 6. Hypokalemia secondary to diuresis. Status post replacement. 7. Right renal atrophy. Plan: Maintain Lasix 60 mg orally twice daily. Maintain Aldactone 50 mg twice daily. Low-salt diet with 1200 mL fluid restriction. Strict I's and O's. Avoid nephrotoxins. Repeat BMP and mag in 2-3 days postdischarge. Follow up outpatient in the next 1-2 weeks.
[2018-12-12 10:24] LABS: Calcium 8.4 mg/dL (8.4-10.2); Magnesium 1.4 mg/dL (1.6-2.3); Potassium 3.6 mmol/L (3.5-5.1)
[2018-12-12 10:37] LABS: Basophils # (A) 0.1 k/uL (0-0.2); Basophils % (A) 0 %; Eosinophils # (A) 0.5 k/uL (0-0.7); Eosinophils % (A) 3 %; HCT 35.9 % (39.0-53.0); HGB 11.7 gm/dL (13.0-17.5); Lymphocytes # (A) 1.8 k/uL (1.0-4.8); Lymphocytes % (A) 9 %; MCH 37.3 pg (25.0-35.0); MCHC 32.5 g/dL (31.0-37.0); MCV 114.9 fL (80.0-100.0); Macrocytosis Marked; Mean Platelet Volume 8.2; Monocytes # (A) 0.9 k/uL (0-1.0); Monocytes % (A) 5 %; Neutrophils # (A) 16.2 k/uL (1.3-7.7); Neutrophils % (A) 83 %; Platelet Count 124 k/uL (150-450); RBC 3.13 m/uL (4.30-5.90); RDW 13.5 % (11.5-15.5); WBC 19.6 k/uL (3.8-10.6)
[2018-12-12] MEDS ORDERED: Magnesium Replacement Protocol 1 EACH MISC MISCELLANE PRN (10:48)
--- NOTE | 2018-12-12 10:54 | P.PN ---
Subjective Progress Note Date: 12/12/18 This is a 73-year-old male patient of Dr. Salamanca. Patient presented yesterday 12/05/2018 for planned paracentesis was found to have abnormal lab. Patient has a history of ascites and underwent paracentesis yesterday with 8.6 L off. Patient's creatinine was found to be significantly elevated at 4.26 which patient was 2.4 on 11/30/2018. Blood also elevated at 42. Patient reports he's had decreased appetite over the past 4 weeks along with some nausea. Patient denies recent illness or fevers. Patient reports adequate urine output. Patient has a past medical history of CVA, hypertension, osteoarthritis, sleep apnea and thyroid disorder. Patient noted to have increased edema to lower extremities and right upper extremity venous Doppler will be ordered to rule out DVT. Nephrology services consulted for acute kidney injury. Patient started on IV Lasix per nephrology. GI services also consulted for recent paracentesis due to ascites. This time patient denies chest pain or shortness of breath. Patient denies nausea vomiting or diarrhea. Patient denies any urinary burning or frequency. On 12/07/2018 patient is alert and oriented 3 family is at bedside. Patient's creatinine is trending down to 3.21 and bun 39. UA positive for urinary tract infection. Patient started on Rocephin. Urine culture ordered. Patient remains on IV Lasix per nephrology services. Patient denies chest pain or shortness of breath. Patient denies nausea vomiting or diarrhea. Patient denies any urinary burning or frequency. On 12/08/2018 patient is alert and oriented 3. Creatinine trending down to 1.90 bun 30. white blood cell also trending down to 13.8. Patient remains on Rocephin for urinary tract infection. Patient remains on IV Lasix 60 mg every 12 hours. This time patient denies chest pain or shortness of breath. Patient denies nausea vomiting or diarrhea. Patient denies any urinary burning or frequency. On 12/09/2018 patient was seen and examined on the medical floor he is alert and oriented 3 in no apparent distress he denies any complaints at this time there is no fever or chills no headache or dizziness no chest pain no shortness of breath no cough no nausea or vomiting no abdominal pain no diarrhea and no urinary symptoms. On 12/10/2018 patient was seen on the medical floor, daughter at the bedside, he is alert and oriented 3 in no apparent distress, he denies any symptoms at this time there is no fever or chills no headache or dizziness no chest pain no shortness of breath no cough no nausea or vomiting no abdominal pain no diarrhea and no urinary symptoms diminished slightly more distended than yesterday Will monitor closely On 12/11/2018 patient is alert and oriented 3. Family at bedside. Patient underwent paracentesis in which 3.6 L was removed. Patient's white blood cell increasing to 20.3. Repeat chest x-ray ordered. Stool for C. diff ordered. Patient remains on Rocephin. Patient denies any chest pain or shortness of breath. Patient denies any upper respiratory symptoms. Patient denies any burning or frequency. Patient denies any nausea or vomiting. On 12/12/2018 patient is alert and oriented 3. Infectious disease following. Diflucan was given per ID. Awaiting ascitic fluid cell count from paracentesis. At this time patient denies chest pain or shortness of breath. Patient denies any nausea vomiting or diarrhea. Patient denies any urinary burning or frequency. Objective - Vital Signs Vital signs: Vital Signs Temp 98.1 F 12/12/18 05:35 Pulse 86 12/12/18 05:35 Resp 20 12/12/18 05:35 BP 99/61 12/12/18 05:35 Pulse Ox 95 12/12/18 05:35 Intake & Output 12/11/18 12/12/18 12/12/18 18:59 06:59 18:59 Intake Total 1261 360 Output Total 1000 1100 Balance 261 -740 Weight 84.141 kg Intake: Intake, IV Titration 200 Amount Albumin Human 25% 50 ml 200 In Empty Bag 1 bag @ 200 mls/hr IVPB Q15M [facility] Rx#: [id number] Oral 1061 360 Output: Urine 1000 1100 Uretheral (Goldstein) 1100 Other: Voiding Method Indwelling Catheter Indwelling Catheter # Voids 1 - Exam Head normocephalic Neck supple Lungs clear to auscultation bilaterally no wheezing or crackles Heart regular rate and rhythm S1-S2, no rub or gallop Abdomen is soft and rounded nontender to palpation Extremities +2 nonpitting edema bilateral lower extremities. +1 edema to right upper extremity with erythema Neuro alert and orientated to 3 - Labs CBC & Chem 7: 12/12/18 09:34 12/12/18 09:34 Labs: Abnormal Lab Results - Last 24 Hours (Table) 12/11/18 12/12/18 12/12/18 Range/Units 08:12 09:34 09:34 WBC 20.3 H 19.6 H (3.8-10.6) k/uL RBC 3.12 L 3.13 L (4.30-5.90) m/uL Hgb 11.8 L 11.7 L (13.0-17.5) gm/dL Hct 36.1 L 35.9 L (39.0-53.0) % MCV 115.7 H 114.9 H (80.0-100.0) fL MCH 37.8 H 37.3 H (25.0-35.0) pg Plt Count 100 L 124 L (150-450) k/uL Neutrophils # 16.7 H (1.3-7.7) k/uL Macrocytosis Marked A Marked A BUN 25 H (9-20) mg/dL Creatinine 1.41 H (0.66-1.25) mg/dL Glucose 110 H (74-99) mg/dL Magnesium 1.4 L (1.6-2.3) mg/dL Microbiology - Last 24 Hours (Table) 12/11/18 10:30 Gram Stain - Preliminary Ascites Fluid Body Fluid Culture - Preliminary 12/07/18 18:02 Blood Culture - Preliminary Blood No Growth after 96 hours 12/11/18 10:30 Anaerobic Culture - Preliminary Ascites Fluid Assessment and Plan Assessment: 1. Acute kidney injury. Creatinine elevated at 4.26 and bun 42. Baseline creatinine appears to be 1. Nephrology services have been consulted we'll continue to monitor. Per nephrology Lasix 60 mg twice daily has been ordered. IV albumin 25 g 2 doses ordered. Renal ultrasound ordered. Home medications of Lasix and Aldactone on hold. Patient started on IV Lasix per nephrology. Renal ultrasound completed showing cortical thinning with small sized kidneys consistent with product of chronic medical renal disease which is more prominent right kidney versus left kidney. No hydronephrosis bilaterally. Creatinine improving 1.4 and bun 20. Aldactone and Lasix by mouth added per cardiology 2. Abdominal ascites with recent paracentesis. Patient underwent paracentesis on 12/05/2018 with 8.7 L removed. GI services have been consulted. Patient underwent paracentesis today 12/11/2017 with 3.6 L removed paracentesis fluid culture ordered 3. Urinary tract infection. Patient started on Rocephin urine culture ordered. 4. Volume overload. Venous Doppler bilateral lower extremities negative for DVT. Right upper arm ultrasound negative for DVT. remains on Lasix 60 mg every 12 hours 5. History of nephrolithiasis status post lithotripsy in 2016 6. History of essential hypertension 7. History of CVA 8. History of sleep apnea 9. History of hypothyroidism. Home meds resumed 10. Cirrhosis of the liver. Possible EtOH history per GI 11. Hypokalemia. Potassium replacement protocol will continue to monitor 12. Leukocytosis. White blood cell increasing to 20.3. Repeat chest x-ray ordered. Stool for C. diff ordered. Per infectious disease leukocytosis of 15 reactive. Diflucan has been given. 13. Slow speech. No other neuro symptoms noted. Head CT completed showing age-related atrophic and chronic small vessel ischemic changes without acute intracranial process seen at this time. Ammonia level 27 DVT prophylaxis SCDs due to thrombocytopenia. GI prophylaxis Protonix I performed an examination of the patient and discussed their management with the Nurse Practitioner. I have reviewed the Nurse Practitioner's notes and agree with the documented findings and plan of care
[2018-12-12] MEDS: MAGNESIUM SULFATE-D5W PMX 1 GM in DEXTROSE/WATER 1 100ML.BAG IVPB SCH ×3 (12:18→14:58)
[2018-12-12] MEDS: IOPAMIDOL CONTRAST (ORAL USE) VIAL PO PRN ×2 (14:57→15:55)
--- NOTE | 2018-12-12 18:34 | CT ---
EXAMINATION TYPE: CT abdomen pelvis wo con DATE OF EXAM: 12/12/2018 COMPARISON: 11/21/2018 HISTORY: abdominal pain, increased WBC's CT DLP: 899.3 mGycm Automated exposure control for dose reduction was used. TECHNIQUE: Helical acquisition of images was performed from the lung bases through the pelvis. FINDINGS: LUNG BASES-there is a small right pleural effusion and tiny left pleural effusion with subsegmental c onsolidation likely in the basis of compressive atelectasis.. LIVER/GB-liver somewhat nodular and heterogeneous correlate for hepatocellular disease. Cholelithiasi s. PANCREAS- No gross abnormality is seen. Fat attenuation is noted in the region of the pancreatic head likely representing a lipoma measuring -80 Hounsfield units and retrospectively stable from the prio r exam. Measures 2.6 cm. SPLEEN- No gross abnormality is seen. ADRENALS-there is an indeterminate 1.7 cm right adrenal nodule stable dating back to 2013 and therefo re likely related to adenoma.. KIDNEYS/BLADDER- no hydronephrosis or nephrolithiasis. Cortical thinning is noted. BOWEL-bowel gas pattern nonspecific. Diverticulosis of the colon noted.. LYMPH NODES- No greater than 1cm abdominal or pelvic lymph nodes areappreciated. OSSEOUS STRUCTURES-degenerative change of the spine and arthropathy of the hips. Grade 1 anterolisthe sis L4 on L5. Multilevel facet arthropathy noted. Chronic rib deformities involving the right rib cag e anteriorly suggest remote trauma. OTHER- aorta of normal caliber with atherosclerotic changes. There is a moderate amount of ascites. M ild diffuse subcutaneous edema noted. Air is within the bladder which is decompressed and contains a Goldstein catheter. IMPRESSION- 1. Moderate amount of ascites correlate for hepatocellular disease or chronic medical renal disease. 2. A few prominent small bowel loops are seen in the abdomen correlate for an ileus or enteritis. Pa rtial obstruction not entirely excluded. 3. Small right and tiny left pleural effusion with suspected compressive atelectasis. 4. Cholelithiasis. Gallbladder is decompressed and therefore assessment of the wall thickening or cho lecystitis is nondiagnostic particularly given the amount of ascites which obscures the surrounding d etail. Correlate with follow-up ultrasound as clinically warranted. 5. Cortical thinning of the kidneys correlate for chronic medical renal disease.
--- NOTE | 2018-12-12 18:37 | PN ---
PROGRESS NOTE DATE OF SERVICE: 12/12/2018. REASON FOR FOLLOWUP: Leukocytosis. INTERVAL HISTORY: The patient is currently afebrile. The patient has been breathing comfortably. Denies having any chest pain. Abdominal distention has decreased. No significant discomfort. No nausea, no vomiting. He did have some diarrhea though did mention it slowed down. PHYSICAL EXAMINATION: Blood pressure 96/56, pulse of 76, temperature 97.8. He is 99% on room air. General description is an elderly male up in the chair in no distress. RESPIRATORY SYSTEM: Unlabored breathing. Clear to auscultation anteriorly. HEART: S1, S2. Regular rate and rhythm. ABDOMEN: Soft. Mild distention. EXTREMITIES: No edema of the feet. LABS: Hemoglobin 11.7, white count 19.6. Creatinine is 1.41. Stool for C difficile was requested, now done. The peritoneal fluid does not look infected. 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 Stool for C difficile was requested and unfortunately not completed. CT of abdomen and pelvis with oral contrast will be done to rule out any intraabdominal pathology. Continue with Rocephin. Monitor clinical course closely. Continue with supportive care. MMODL / IJN: [id number] /
[2018-12-13] MEDS: LEVOTHYROXINE 50 MCG TAB PO SCH (05:59)
[2018-12-13] MEDS: SODIUM BICARBONATE TAB 650 MG TAB PO SCH ×2 (10:04→22:03)
[2018-12-13] MEDS: SPIRONOLACTONE 25 MG TAB PO SCH ×2 (10:05→22:03)
[2018-12-13] MEDS: FUROSEMIDE 20 MG TAB PO SCH ×2 (10:05→15:26)
[2018-12-13] MEDS: MIDODRINE 5 MG TAB PO SCH ×3 (10:05→19:41)
[2018-12-13 10:10] LABS: Basophils % (A) 0 %; Eosinophils # (A) 0.5 k/uL (0-0.7); Eosinophils % (A) 3 %; HCT 33.8 % (39.0-53.0); Lymphocytes # (A) 1.6 k/uL (1.0-4.8); Lymphocytes % (A) 9 %; MCH 36.1 pg (25.0-35.0); MCHC 32.5 g/dL (31.0-37.0); MCV 110.8 fL (80.0-100.0); Macrocytosis Marked; Monocytes # (A) 0.8 k/uL (0-1.0); Monocytes % (A) 5 %; Neutrophils # (A) 14.1 k/uL (1.3-7.7); Neutrophils % (A) 82 %; Platelet Count 125 k/uL (150-450); RBC 3.05 m/uL (4.30-5.90); RDW 12.9 % (11.5-15.5); WBC 17.1 k/uL (3.8-10.6)
[2018-12-13] MEDS: PANTOPRAZOLE 40 MG TABLET PO SCH (10:11)
--- NOTE | 2018-12-13 11:19 | P.PN ---
Subjective Progress Note Date: 12/13/18 This is a 73-year-old male patient of Dr. Salamanca. Patient presented yesterday 12/05/2018 for planned paracentesis was found to have abnormal lab. Patient has a history of ascites and underwent paracentesis yesterday with 8.6 L off. Patient's creatinine was found to be significantly elevated at 4.26 which patient was 2.4 on 11/30/2018. Blood also elevated at 42. Patient reports he's had decreased appetite over the past 4 weeks along with some nausea. Patient denies recent illness or fevers. Patient reports adequate urine output. Patient has a past medical history of CVA, hypertension, osteoarthritis, sleep apnea and thyroid disorder. Patient noted to have increased edema to lower extremities and right upper extremity venous Doppler will be ordered to rule out DVT. Nephrology services consulted for acute kidney injury. Patient started on IV Lasix per nephrology. GI services also consulted for recent paracentesis due to ascites. This time patient denies chest pain or shortness of breath. Patient denies nausea vomiting or diarrhea. Patient denies any urinary burning or frequency. On 12/07/2018 patient is alert and oriented 3 family is at bedside. Patient's creatinine is trending down to 3.21 and bun 39. UA positive for urinary tract infection. Patient started on Rocephin. Urine culture ordered. Patient remains on IV Lasix per nephrology services. Patient denies chest pain or shortness of breath. Patient denies nausea vomiting or diarrhea. Patient denies any urinary burning or frequency. On 12/08/2018 patient is alert and oriented 3. Creatinine trending down to 1.90 bun 30. white blood cell also trending down to 13.8. Patient remains on Rocephin for urinary tract infection. Patient remains on IV Lasix 60 mg every 12 hours. This time patient denies chest pain or shortness of breath. Patient denies nausea vomiting or diarrhea. Patient denies any urinary burning or frequency. On 12/09/2018 patient was seen and examined on the medical floor he is alert and oriented 3 in no apparent distress he denies any complaints at this time there is no fever or chills no headache or dizziness no chest pain no shortness of breath no cough no nausea or vomiting no abdominal pain no diarrhea and no urinary symptoms. On 12/10/2018 patient was seen on the medical floor, daughter at the bedside, he is alert and oriented 3 in no apparent distress, he denies any symptoms at this time there is no fever or chills no headache or dizziness no chest pain no shortness of breath no cough no nausea or vomiting no abdominal pain no diarrhea and no urinary symptoms diminished slightly more distended than yesterday Will monitor closely On 12/11/2018 patient is alert and oriented 3. Family at bedside. Patient underwent paracentesis in which 3.6 L was removed. Patient's white blood cell increasing to 20.3. Repeat chest x-ray ordered. Stool for C. diff ordered. Patient remains on Rocephin. Patient denies any chest pain or shortness of breath. Patient denies any upper respiratory symptoms. Patient denies any burning or frequency. Patient denies any nausea or vomiting. On 12/12/2018 patient is alert and oriented 3. Infectious disease following. Diflucan was given per ID. Awaiting ascitic fluid cell count from paracentesis. At this time patient denies chest pain or shortness of breath. Patient denies any nausea vomiting or diarrhea. Patient denies any urinary burning or frequency. On 12/13/2018 patient is alert and oriented 3. CT of abdomen completed per infectious disease. White blood cell is trending down to 17. Assessment patient denies chest pain or shortness breath. Patient denies nausea vomiting or diarrhea. Patient denies any urinary burning or frequency Objective - Vital Signs Vital signs: Vital Signs Temp 98.1 F 12/13/18 05:00 Pulse 65 12/13/18 05:00 Resp 18 12/13/18 05:00 BP 94/57 12/13/18 05:00 Pulse Ox 97 12/13/18 05:00 Intake & Output 12/12/18 12/13/18 12/13/18 18:59 06:59 18:59 Intake Total 600 195 Output Total 1100 700 Balance -500 -505 Weight 84.141 kg Intake: Oral 600 195 Output: Urine 1100 700 Uretheral (Goldstein) 700 Other: Voiding Method Indwelling Catheter Indwelling Catheter # Voids 1 # Bowel Movements 1 - Exam Head normocephalic Neck supple Lungs clear to auscultation bilaterally no wheezing or crackles Heart regular rate and rhythm S1-S2, no rub or gallop Abdomen is soft and rounded nontender to palpation Extremities +2 nonpitting edema bilateral lower extremities. +1 edema to right upper extremity with erythema Neuro alert and orientated to 3 - Labs CBC & Chem 7: 12/13/18 08:56 12/12/18 09:34 Labs: Abnormal Lab Results - Last 24 Hours (Table) 12/11/18 12/12/18 12/13/18 Range/Units 09:34 09:34 08:56 WBC 19.6 H 17.1 H (3.8-10.6) k/uL RBC 3.13 L 3.05 L (4.30-5.90) m/uL Hgb 11.7 L 11.0 L (13.0-17.5) gm/dL Hct 35.9 L 33.8 L (39.0-53.0) % MCV 114.9 H 110.8 H (80.0-100.0) fL MCH 37.3 H 36.1 H (25.0-35.0) pg Plt Count 124 L 125 L (150-450) k/uL Neutrophils # 16.2 H (1.3-7.7) k/uL Macrocytosis Marked A Marked A Procalcitonin 0.56 H (0.02-0.09) ng/mL Microbiology - Last 24 Hours (Table) 12/11/18 10:30 Gram Stain - Preliminary Ascites Fluid Body Fluid Culture - Preliminary 12/07/18 18:02 Blood Culture - Preliminary Blood No Growth after 120 hours Assessment and Plan Assessment: 1. Acute kidney injury. Creatinine elevated at 4.26 and bun 42. Baseline creatinine appears to be 1. Nephrology services have been consulted we'll continue to monitor. Per nephrology Lasix 60 mg twice daily has been ordered. IV albumin 25 g 2 doses ordered. Renal ultrasound ordered. Home medications of Lasix and Aldactone on hold. Patient started on IV Lasix per nephrology. Renal ultrasound completed showing cortical thinning with small sized kidneys consistent with product of chronic medical renal disease which is more prominent right kidney versus left kidney. No hydronephrosis bilaterally. Creatinine improving 1.4 and bun 20. Aldactone and Lasix by mouth added per cardiology 2. Abdominal ascites with recent paracentesis. Patient underwent paracentesis on 12/05/2018 with 8.7 L removed. GI services have been consulted. Patient underwent paracentesis today 12/11/2017 with 3.6 L removed paracentesis fluid culture ordered 3. Urinary tract infection. Patient started on Rocephin urine culture ordered. 4. Volume overload. Venous Doppler bilateral lower extremities negative for DVT. Right upper arm ultrasound negative for DVT. remains on Lasix 60 mg every 12 hours 5. History of nephrolithiasis status post lithotripsy in 2016 6. History of essential hypertension 7. History of CVA 8. History of sleep apnea 9. History of hypothyroidism. Home meds resumed 10. Cirrhosis of the liver. Possible EtOH history per GI 11. Hypokalemia. Potassium replacement protocol will continue to monitor 12. Leukocytosis. White blood cell increasing to 20.3. Repeat chest x-ray ordered. Stool for C. diff ordered. Per infectious disease leukocytosis of 15 reactive. Diflucan has been given. 13. Slow speech. No other neuro symptoms noted. Head CT completed showing age-related atrophic and chronic small vessel ischemic changes without acute intracranial process seen at this time. Ammonia level 27 DVT prophylaxis Lovenox. GI prophylaxis Protonix I performed an examination of the patient and discussed their management with the Nurse Practitioner. I have reviewed the Nurse Practitioner's notes and agree with the documented findings and plan of care
--- NOTE | 2018-12-13 11:26 | P.PN ---
Subjective Patient is seen in follow-up for acute kidney injury. Patient's baseline creatinine is near 1 and was elevated at 4.26 and he was sent to the hospital. Renal function has significantly improved. Creatinine 1.41 as of yesterda. Currently has a Goldstein catheter in place. Maintained on oral Lasix 60 mg twice daily and Aldactone 50 mg twice daily. He is nonoliguric. Lower extremity edema improved. Vital signs are stable. General: The patient appeared well nourished and normally developed. HEENT: Head exam is unremarkable. Neck is without jugular venous distension. LUNGS: Lungs are clear to auscultation and percussion. Breath sounds decreased. HEART: Rate and Rhythm are regular. First and second heart sounds normal. No murmurs, rubs or gallops. ABDOMEN: Bowel sounds decreased. Moderate distention noted. EXTREMITITES: Trace edema. Objective - Vital Signs Vital signs: Vital Signs Temp 98.1 F 12/13/18 05:00 Pulse 65 12/13/18 05:00 Resp 18 12/13/18 05:00 BP 94/57 12/13/18 05:00 Pulse Ox 97 12/13/18 05:00 Intake & Output 12/12/18 12/13/18 12/13/18 18:59 06:59 18:59 Intake Total 600 195 Output Total 1100 700 Balance -500 -505 Weight 84.141 kg Intake: Oral 600 195 Output: Urine 1100 700 Uretheral (Goldstein) 700 Other: Voiding Method Indwelling Catheter Indwelling Catheter # Voids 1 # Bowel Movements 1 - Labs CBC & Chem 7: 12/13/18 08:56 12/12/18 09:34 Labs: Abnormal Lab Results - Last 24 Hours (Table) 12/11/18 12/12/18 12/13/18 Range/Units 09:34 09:34 08:56 WBC 19.6 H 17.1 H (3.8-10.6) k/uL RBC 3.13 L 3.05 L (4.30-5.90) m/uL Hgb 11.7 L 11.0 L (13.0-17.5) gm/dL Hct 35.9 L 33.8 L (39.0-53.0) % MCV 114.9 H 110.8 H (80.0-100.0) fL MCH 37.3 H 36.1 H (25.0-35.0) pg Plt Count 124 L 125 L (150-450) k/uL Neutrophils # 16.2 H (1.3-7.7) k/uL Macrocytosis Marked A Marked A Procalcitonin 0.56 H (0.02-0.09) ng/mL Microbiology - Last 24 Hours (Table) 12/11/18 10:30 Gram Stain - Preliminary Ascites Fluid Body Fluid Culture - Preliminary 12/07/18 18:02 Blood Culture - Preliminary Blood No Growth after 120 hours Assessment and Plan Plan: Assessment: 1. Acute kidney injury mostly prerenal secondary to diuresis and large volume paracentesis. Creatinine was 4.26 on admission and is down to 1.41 as of yesterday. Baseline creatinine near 1. No evidence of hydronephrosis noted on CAT scan done on November 21, 2018. Trace proteinuria on UA. 2. Ascites. Status post paracentesis on December 05 for nearly 8 L drained. Another paracentesis done on December 11 with 3.7 L drained. ?Etiology liver disease. Gastroenterology following. 3. Volume overload. Improved with diuresis. 4. Metabolic acidosis secondary to acute kidney injury maintained on oral sodium bicarbonate. 5. History of nephrolithiasis status post lithotripsy in 2016. 6. Hypokalemia secondary to diuresis. Status post replacement. 7. Right renal atrophy. Plan: Maintain Lasix 60 mg orally twice daily. Maintain Aldactone 50 mg twice daily. Low-salt diet with 1200 mL fluid restriction. Strict I's and O's. Avoid nephrotoxins. Repeat BMP and mag in 2-3 days postdischarge. Follow up outpatient in the next 1-2 weeks.
[2018-12-13 12:14] LABS: Albumin 2.4 g/dL (3.5-5.0); Calcium 8.4 mg/dL (8.4-10.2); Total Bilirubin 2.5 mg/dL (0.2-1.3); Total Protein 5.7 g/dL (6.3-8.2)
[2018-12-13 12:18] LABS: Poikilocytosis (M) Present
[2018-12-13 12:21] LABS: Potassium 3.5 mmol/L (3.5-5.1)
--- NOTE | 2018-12-13 13:09 | PN ---
PROGRESS NOTE DATE OF SERVICE: 12/13/2018 REASON FOR FOLLOWUP: Leukocytosis. INTERVAL HISTORY: The patient is currently afebrile. Patient has been breathing comfortably. The patient denies having any chest pain or shortness of breath or cough. Denies having any worsening abdominal pain and no worsening diarrhea. PHYSICAL EXAMINATION: On examination, blood pressure 94/57 with a pulse of 65, temperature 98.1. He is 97% on room air. General description is an elderly male lying in bed in no distress. RESPIRATORY SYSTEM: Unlabored breathing, clear to auscultation anteriorly. HEART: S1, S2. Regular rate and rhythm. ABDOMEN: Soft, mild distention. No guarding or rigidity. EXTREMITIES: No edema of the feet. LABS: Hemoglobin is 11, white count 17.1. BUN of 25, creatinine 1.23. CT of the abdomen and pelvis did not show any acute infection. Stool for C difficile has been negative. Ascitic fluid culture so far negative. DIAGNOSTIC IMPRESSION AND PLAN: Patient with leukocytosis possibly reactive as clinically we have not found any obvious source of infection despite extensive workup. The patient has been exposed to antibiotic possible Ruth infection for which we will restart his Diflucan. Repeat his CBC tomorrow. Monitor clinical course closely. Continue with supportive care. MMODL / IJN: [id number] / SHAWNA
[2018-12-13] MEDS: FLUCONAZOLE 100 MG TAB PO SCH (15:26)
[2018-12-14] MEDS: LEVOTHYROXINE 50 MCG TAB PO SCH (06:16)
[2018-12-14 08:16] LABS: Basophils % (A) 0 %; Eosinophils # (A) 0.5 k/uL (0-0.7); Eosinophils % (A) 3 %; HCT 35.3 % (39.0-53.0); HGB 11.3 gm/dL (13.0-17.5); Lymphocytes # (A) 1.6 k/uL (1.0-4.8); Lymphocytes % (A) 10 %; MCH 36.5 pg (25.0-35.0); MCHC 32.1 g/dL (31.0-37.0); MCV 113.7 fL (80.0-100.0); Macrocytosis Marked; Mean Platelet Volume 8.4; Monocytes # (A) 0.8 k/uL (0-1.0); Monocytes % (A) 5 %; Neutrophils # (A) 12.3 k/uL (1.3-7.7); Neutrophils % (A) 80 %; Platelet Count 134 k/uL (150-450); RBC 3.11 m/uL (4.30-5.90); RDW 13.4 % (11.5-15.5); WBC 15.3 k/uL (3.8-10.6)
[2018-12-14 08:17] LABS: Albumin 2.4 g/dL (3.5-5.0); Calcium 8.4 mg/dL (8.4-10.2); Potassium 3.7 mmol/L (3.5-5.1); Total Bilirubin 2.8 mg/dL (0.2-1.3); Total Protein 5.9 g/dL (6.3-8.2)
[2018-12-14] MEDS: FUROSEMIDE 20 MG TAB PO SCH (08:56)
[2018-12-14] MEDS: FLUCONAZOLE 100 MG TAB PO SCH (08:56)
[2018-12-14] MEDS: SODIUM BICARBONATE TAB 650 MG TAB PO SCH (08:57)
[2018-12-14] MEDS: SPIRONOLACTONE 25 MG TAB PO SCH (08:57)
[2018-12-14] MEDS: PANTOPRAZOLE 40 MG TABLET PO SCH (08:57)
[2018-12-14] MEDS ORDERED: ENOXAPARIN 40 MG/0.4 ML SYRINGE SQ SCH (09:00)
[2018-12-14] MEDS: MIDODRINE 5 MG TAB PO SCH ×2 (09:02→13:55)
--- NOTE | 2018-12-14 10:28 | P.PN ---
Subjective Patient is seen in follow-up for acute kidney injury. Patient's baseline creatinine is near 1 and was elevated at 4.26 and he was sent to the hospital. Renal function has significantly improved. Creatinine 1.27 today. Currently has a Goldstein catheter in place. Maintained on oral Lasix 60 mg twice daily and Aldactone 50 mg twice daily. He is nonoliguric. Lower extremity edema improved. Potentially discharge to rehab today. Vital signs are stable. General: The patient appeared well nourished and normally developed. HEENT: Head exam is unremarkable. Neck is without jugular venous distension. LUNGS: Lungs are clear to auscultation and percussion. Breath sounds decreased. HEART: Rate and Rhythm are regular. First and second heart sounds normal. No murmurs, rubs or gallops. ABDOMEN: Bowel sounds decreased. Moderate distention noted. EXTREMITITES: Trace edema. Objective - Vital Signs Vital signs: Vital Signs Temp 98.0 F 12/14/18 05:00 Pulse 91 12/14/18 05:00 Resp 16 12/14/18 05:00 BP 103/58 12/14/18 05:00 Pulse Ox 97 12/14/18 05:00 Intake & Output 12/13/18 12/14/18 12/14/18 18:59 06:59 18:59 Intake Total 570 680 Output Total 1000 Balance 570 -320 Weight 84.15 kg Intake: Intake, IV Titration 200 Amount cefTRIAXone 1 gm In 200 Sodium Chloride 0.9% 50 ml @ 100 mls/hr IVPB Q24HR [facility] Rx#:[id number] Oral 370 680 Output: Urine 1000 Uretheral (Goldstein) 1000 Other: Voiding Method Indwelling Catheter Indwelling Catheter # Voids 3 # Bowel Movements 1 1 - Labs CBC & Chem 7: 12/14/18 07:44 12/14/18 07:44 Labs: Abnormal Lab Results - Last 24 Hours (Table) 12/13/18 12/13/18 12/14/18 Range/Units 08:56 08:56 07:44 WBC 17.1 H 15.3 H (3.8-10.6) k/uL RBC 3.05 L 3.11 L (4.30-5.90) m/uL Hgb 11.0 L 11.3 L (13.0-17.5) gm/dL Hct 33.8 L 35.3 L (39.0-53.0) % MCV 110.8 H 113.7 H (80.0-100.0) fL MCH 36.1 H 36.5 H (25.0-35.0) pg Plt Count 125 L 134 L (150-450) k/uL Neutrophils # 14.1 H 12.3 H (1.3-7.7) k/uL Macrocytosis Marked A Marked A Sodium 133 L (137-145) mmol/L BUN 25 H (9-20) mg/dL Creatinine (0.66-1.25) mg/dL Glucose 117 H (74-99) mg/dL Total Bilirubin 2.5 H (0.2-1.3) mg/dL AST 71 H (17-59) U/L ALT (21-72) U/L Alkaline Phosphatase 160 H (38-126) U/L Total Protein 5.7 L (6.3-8.2) g/dL Albumin 2.4 L (3.5-5.0) g/dL 12/14/18 Range/Units 07:44 WBC (3.8-10.6) k/uL RBC (4.30-5.90) m/uL Hgb (13.0-17.5) gm/dL Hct (39.0-53.0) % MCV (80.0-100.0) fL MCH (25.0-35.0) pg Plt Count (150-450) k/uL Neutrophils # (1.3-7.7) k/uL Macrocytosis Sodium 134 L (137-145) mmol/L BUN 26 H (9-20) mg/dL Creatinine 1.27 H (0.66-1.25) mg/dL Glucose (74-99) mg/dL Total Bilirubin 2.8 H (0.2-1.3) mg/dL AST 70 H (17-59) U/L ALT 19 L (21-72) U/L Alkaline Phosphatase 183 H (38-126) U/L Total Protein 5.9 L (6.3-8.2) g/dL Albumin 2.4 L (3.5-5.0) g/dL Microbiology - Last 24 Hours (Table) 12/07/18 18:02 Blood Culture - Final Blood No Growth after 144 hours 12/11/18 10:30 Anaerobic Culture - Preliminary Ascites Fluid 12/11/18 10:30 Gram Stain - Preliminary Ascites Fluid Body Fluid Culture - Preliminary Assessment and Plan Plan: Assessment: 1. Acute kidney injury mostly prerenal secondary to diuresis and large volume paracentesis. Creatinine was 4.26 on admission and renal function has improved significantly. Creatinine 1.27 today. Baseline creatinine near 1. No evidence of hydronephrosis noted on CAT scan done on November 21, 2018. Trace proteinuria on UA. 2. Ascites. Status post paracentesis on December 05 for nearly 8 L drained. Another paracentesis done on December 11 with 3.7 L drained. ?Etiology liver disease. Gastroenterology following. 3. Volume overload. Improved with diuresis. 4. Metabolic acidosis secondary to acute kidney injury maintained on oral sodium bicarbonate. 5. History of nephrolithiasis status post lithotripsy in 2015. 6. Hypokalemia secondary to diuresis. Status post replacement. 7. Right renal atrophy. Plan: Maintain Lasix 60 mg orally twice daily. Maintain Aldactone 50 mg twice daily. Low-salt diet with 1200 mL fluid restriction. Strict I's and O's. Avoid nephrotoxins. Repeat BMP and mag in 2-3 days postdischarge. Follow up outpatient in the next 1-2 weeks.
--- NOTE | 2018-12-14 10:49 | P.GSCN ---
History of Present Illness Consult date: 12/14/18 Reason for Consult: abnormal CT scan Requesting physician: Amaris Shabazz History of present illness: CHIEF COMPLAINT: abnormal CT results HISTORY OF PRESENT ILLNESS: 73-year-old male admitted to the hospital with acute renal failure, abdominal ascites, and urinary tract infection. He is s/p paracentesis on 12/05/2018 with 8.7 L removed and 12/11/2018 with 3.6 L removed. Patient with history of liver cirrhosis, likely secondary to previous ETOH use. computed tomography scan abdomen and pelvis was completed on 12/12/2018 revealing moderate amount of ascites, a few prominent small bowel loops visualized in the abdomen. Possible ileus or enteritis. Cholelithiasis. Gallbladder is compressed and assessment of wall thickening or cholecystitis is nondiagnostic. General surgery was consulted for further evaluation. Patient examined at the bedside. He denies abdominal pain or discomfort. Denies nausea or vomiting. Denies change in bowel habits. Patient reports he has had a loose stool this morning and also yesterday morning. Denies diarrhea. CDiff was negative. He is tolerating diet well. PAST MEDICAL HISTORY: See list. PAST SURGICAL HISTORY: See list. MEDICATIONS: See list. ALLERGIES: See list. SOCIAL HISTORY: No illicit drug use. History of ETOH abuse. REVIEW OF SYSTEMS: CONSTITUTIONAL: Denies fever or chills. HEENT: Denies blurred vision, vision changes, or eye pain. Denies hemoptysis ENDOCRINE: Denies heat or cold intolerance. CARDIOVASCULAR: Denies chest pain or pressure. RESPIRATORY: No shortness of breath. GASTROINTESTINAL: Denies abdominal pain. Denies nausea or vomiting. NEURO: Denies history of seizures. PSYCH: No depression or suicidal ideation HEMATOLOGIC: Denies bleeding disorders. LYMPHATIC: The patient denies any lumps and bumps around the neck. GENITOURINARY: Denies any blood in urine or increased urinary frequency. MUSCULOSKELETAL: Denies myalgias. Denies joint swelling. Denies decreased range of motion beyond patients baseline. SKIN: Denies pruitis. Denies rash. PHYSICAL EXAM: VITAL SIGNS: Reviewed GENERAL: Well-developed in no acute distress. HEENT: No sclera icterus. Extraocular movements grossly intact. Moist buccal mucosa. Head is atraumatic, normocephalic. Hears conversational speech. No nasal drainage. NECK: Supple without lymphadenopathy. CHEST: Non-labored respirations and equal bilateral excursions. CARDIOVASCULAR: Regular rate with regular rhythm. Palpable 2+ radial pulses. ABDOMEN: Soft. Obese. Nontender. Positive bowel sounds. MUSCULOSKELETAL: No clubbing or cyanosis. Trace lower extremity edema. NEUROLOGIC: No focal or lateralizing signs. Cranial nerves II through XII grossly intact. PSYCH: Appropriate affect. Alert and oriented to person, place and time. SKIN: Well perfused. Good skin turgor. LABORATORY DATA: WBC 15.3. Hemoglobin 11.3. Platelet count 134. Sodium 3.7. BUN 26. Creatinine 1.7. Bilirubin 2.8. AST 70. ALT 19. IMAGING: CT scan completed on 12/12/18. Results described above in HPI. ASSESSMENT: 1. Acute renal failure 2. Cirrhosis of the liver 3. Ascites, status post paracentesis 2 4. Portal hypertension 5. Urinary tract infection 6. Cholelithiasis, patient asymptomatic 7. A few prominent small bowel loops visualized on CT scan, obstruction ruled out 8. Leukocytosis PLAN: 1. Continue diet as tolerated 2. No surgical intervention recommended for gallstones as patient is asymptomatic at this time 3. Continue supportive measures 4. GI and nephrology following 5. Stable from a surgical perspective Nurse practitioner note has been reviewed by physician. Signing provider agrees with the documented findings, assessment, and plan of care. Past Medical History Past Medical History: CVA/TIA, Hypertension, Osteoarthritis (OA), Sleep Apnea/CPAP/BIPAP, Thyroid Disorder Additional Past Medical History / Comment(s): HX TIA,HX KIDNEY STONE, NO CPAP FOR SLEEP APNEA, History of Any Multi-Drug Resistant Organisms: None Reported Past Surgical History: Tonsillectomy Additional Past Surgical History / Comment(s): LITHOTRIPSY, RT KNEE ARTHROSCOPY, right hip replacement, paracentesis Past Anesthesia/Blood Transfusion Reactions: No Reported Reaction Past Psychological History: No Psychological Hx Reported Smoking Status: Never smoker Past Alcohol Use History: Occasional Past Drug Use History: None Reported - Past Family History Mother Family Medical History: Cancer Additional Family Medical History / Comment(s): colon Medications and Allergies Home Medications Medication Instructions Recorded Confirmed Type Levothyroxine Sodium [Synthroid] 50 mcg PO DAILY 11/23/18 12/05/18 History Furosemide [Lasix] 60 mg PO BID 12/05/18 12/05/18 History Acetaminophen Tab [Tylenol] 650 mg PO Q6HR PRN tab 12/14/18 Rx Fluconazole [Diflucan] 200 mg PO DAILY 7 Days #7 tab 12/14/18 Rx Midodrine [ProAmatine] 5 mg PO AC-TID #0 tab 12/14/18 Rx Sodium Bicarbonate Tab 650 mg PO BID tab 12/14/18 Rx Spironolactone [Aldactone] 50 mg PO BID tab 12/14/18 Rx Allergies Allergy/AdvReac Type Severity Reaction Status Date / Time No Known Allergies Allergy Verified 12/05/18 17:40 Surgical - Exam Vital Signs Temp Pulse Resp BP Pulse Ox 97.5 F L 88 19 105/55 100 12/05/18 16:55 12/05/18 16:55 12/05/18 16:55 12/05/18 16:55 12/05/18 16:55 Results - Labs 12/14/18 07:44 12/14/18 07:44 Abnormal Lab Results - Last 24 Hours (Table) 12/13/18 12/13/18 12/14/18 Range/Units 08:56 08:56 07:44 WBC 17.1 H 15.3 H (3.8-10.6) k/uL RBC 3.05 L 3.11 L (4.30-5.90) m/uL Hgb 11.0 L 11.3 L (13.0-17.5) gm/dL Hct 33.8 L 35.3 L (39.0-53.0) % MCV 110.8 H 113.7 H (80.0-100.0) fL MCH 36.1 H 36.5 H (25.0-35.0) pg Plt Count 125 L 134 L (150-450) k/uL Neutrophils # 14.1 H 12.3 H (1.3-7.7) k/uL Macrocytosis Marked A Marked A Sodium 133 L (137-145) mmol/L BUN 25 H (9-20) mg/dL Creatinine (0.66-1.25) mg/dL Glucose 117 H (74-99) mg/dL Total Bilirubin 2.5 H (0.2-1.3) mg/dL AST 71 H (17-59) U/L ALT (21-72) U/L Alkaline Phosphatase 160 H (38-126) U/L Total Protein 5.7 L (6.3-8.2) g/dL Albumin 2.4 L (3.5-5.0) g/dL 12/14/18 Range/Units 07:44 WBC (3.8-10.6) k/uL RBC (4.30-5.90) m/uL Hgb (13.0-17.5) gm/dL Hct (39.0-53.0) % MCV (80.0-100.0) fL MCH (25.0-35.0) pg Plt Count (150-450) k/uL Neutrophils # (1.3-7.7) k/uL Macrocytosis Sodium 134 L (137-145) mmol/L BUN 26 H (9-20) mg/dL Creatinine 1.27 H (0.66-1.25) mg/dL Glucose (74-99) mg/dL Total Bilirubin 2.8 H (0.2-1.3) mg/dL AST 70 H (17-59) U/L ALT 19 L (21-72) U/L Alkaline Phosphatase 183 H (38-126) U/L Total Protein 5.9 L (6.3-8.2) g/dL Albumin 2.4 L (3.5-5.0) g/dL Microbiology - Last 24 Hours (Table) 12/07/18 18:02 Blood Culture - Final Blood No Growth after 144 hours 12/11/18 10:30 Anaerobic Culture - Preliminary Ascites Fluid 12/11/18 10:30 Gram Stain - Preliminary Ascites Fluid Body Fluid Culture - Preliminary Diabetes panel 12/13/18 12/14/18 Range/Units 08:56 07:44 Sodium 133 L 134 L (137-145) mmol/L Potassium 3.5 3.7 (3.5-5.1) mmol/L Chloride 101 100 (98-107) mmol/L Carbon Dioxide 23 26 (22-30) mmol/L BUN 25 H 26 H (9-20) mg/dL Creatinine 1.23 1.27 H (0.66-1.25) mg/dL Glucose 117 H 92 (74-99) mg/dL Calcium 8.4 8.4 (8.4-10.2) mg/dL AST 71 H 70 H (17-59) U/L ALT 26 19 L (21-72) U/L Alkaline Phosphatase 160 H 183 H (38-126) U/L Total Protein 5.7 L 5.9 L (6.3-8.2) g/dL Albumin 2.4 L 2.4 L (3.5-5.0) g/dL Calcium panel 12/13/18 12/14/18 Range/Units 08:56 07:44 Calcium 8.4 8.4 (8.4-10.2) mg/dL Albumin 2.4 L 2.4 L (3.5-5.0) g/dL Pituitary panel 12/13/18 12/14/18 Range/Units 08:56 07:44 Sodium 133 L 134 L (137-145) mmol/L Potassium 3.5 3.7 (3.5-5.1) mmol/L Chloride 101 100 (98-107) mmol/L Carbon Dioxide 23 26 (22-30) mmol/L BUN 25 H 26 H (9-20) mg/dL Creatinine 1.23 1.27 H (0.66-1.25) mg/dL Glucose 117 H 92 (74-99) mg/dL Calcium 8.4 8.4 (8.4-10.2) mg/dL Adrenal panel 12/13/18 12/14/18 Range/Units 08:56 07:44 Sodium 133 L 134 L (137-145) mmol/L Potassium 3.5 3.7 (3.5-5.1) mmol/L Chloride 101 100 (98-107) mmol/L Carbon Dioxide 23 26 (22-30) mmol/L BUN 25 H 26 H (9-20) mg/dL Creatinine 1.23 1.27 H (0.66-1.25) mg/dL Glucose 117 H 92 (74-99) mg/dL Calcium 8.4 8.4 (8.4-10.2) mg/dL Total Bilirubin 2.5 H 2.8 H (0.2-1.3) mg/dL AST 71 H 70 H (17-59) U/L ALT 26 19 L (21-72) U/L Alkaline Phosphatase 160 H 183 H (38-126) U/L Total Protein 5.7 L 5.9 L (6.3-8.2) g/dL Albumin 2.4 L 2.4 L (3.5-5.0) g/dL
--- NOTE | 2018-12-14 11:21 | P.DS ---
Providers Date of admission: 12/05/18 18:26 Expected date of discharge: 12/14/18 Attending physician: Eric Spaulding Consults: 12/05/18 18:26 Consult Physician Routine Consulting Provider: Hawa Lewis Consult Reason/Comments: arf Do you want consulting provider notified?: Yes 12/11/18 12:44 Consult Physician Routine Consulting Provider: Rafa Zepeda Consult Reason/Comments: Elevated white blood cell count Do you want consulting provider notified?: Yes 12/13/18 15:05 Consult Physician Routine Consulting Provider: Natan Lai Consult Reason/Comments: Ct of abdomen result Do you want consulting provider notified?: Yes [facility] Course: Discharge diagnosis 1. Acute kidney injury. Creatinine elevated at 4.26 and bun 42. Baseline creatinine appears to be 1. Nephrology services have been consulted we'll continue to monitor. Per nephrology Lasix 60 mg twice daily has been ordered. IV albumin 25 g 2 doses ordered. Renal ultrasound ordered. Home medications of Lasix and Aldactone on hold. Patient started on IV Lasix per nephrology. Renal ultrasound completed showing cortical thinning with small sized kidneys consistent with product of chronic medical renal disease which is more prominent right kidney versus left kidney. No hydronephrosis bilaterally. Creatinine improving 1.4 and bun 20. Aldactone and Lasix by mouth added per cardiology 2. Abdominal ascites with recent paracentesis. Patient underwent paracentesis on 12/05/2018 with 8.7 L removed. GI services have been consulted. Patient underwent paracentesis today 12/11/2017 with 3.6 L removed paracentesis fluid culture ordered 3. Urinary tract infection. Patient started on Rocephin urine culture ordered. 4. Volume overload. Venous Doppler bilateral lower extremities negative for DVT. Right upper arm ultrasound negative for DVT. remains on Lasix 60 mg every 12 hours 5. History of nephrolithiasis status post lithotripsy in 2016 6. History of essential hypertension 7. History of CVA 8. History of sleep apnea 9. History of hypothyroidism. Home meds resumed 10. Cirrhosis of the liver. Possible EtOH history per GI 11. Hypokalemia. Potassium replacement protocol will continue to monitor 12. Leukocytosis. White blood cell increasing to 20.3. Repeat chest x-ray ordered. Stool for C. diff ordered. Per infectious disease leukocytosis of 15 reactive. Diflucan has been given. Discussed case with infectious disease with blood cell improving to 15.3. Patient has been cleared for discharge. Patient to be discharged on Diflucan 13. Slow speech. No other neuro symptoms noted. Head CT completed showing age-related atrophic and chronic small vessel ischemic changes without acute intracranial process seen at this time. Ammonia level 27 14. Computed tomography scan of abdomen showing cholelithiasis and a few prominent small bowel loops. Per surgical services patient is asymptomatic obstruction ruled out no surgical intervention at this time 15. Hypotension. Midrinone added per nephrology Hospital course This is a 73-year-old male patient of Dr. Salamanca. Patient presented yesterday 12/05/2018 for planned paracentesis was found to have abnormal lab. Patient has a history of ascites and underwent paracentesis yesterday with 8.6 L off. Patient's creatinine was found to be significantly elevated at 4.26 which patient was 2.4 on 11/30/2018. Blood also elevated at 42. Patient reports he's had decreased appetite over the past 4 weeks along with some nausea. Patient denies recent illness or fevers. Patient reports adequate urine output. Patient has a past medical history of CVA, hypertension, osteoarthritis, sleep apnea and thyroid disorder. Patient noted to have increased edema to lower extremities and right upper extremity venous Doppler will be ordered to rule out DVT. Nephrology services consulted for acute kidney injury. Patient started on IV Lasix per nephrology. GI services also consulted for recent paracentesis due to ascites. This time patient denies chest pain or shortness of breath. Patient denies nausea vomiting or diarrhea. Patient denies any urinary burning or frequency. On 12/07/2018 patient is alert and oriented 3 family is at bedside. Patient's creatinine is trending down to 3.21 and bun 39. UA positive for urinary tract infection. Patient started on Rocephin. Urine culture ordered. Patient remains on IV Lasix per nephrology services. Patient denies chest pain or shortness of breath. Patient denies nausea vomiting or diarrhea. Patient denies any urinary burning or frequency. On 12/08/2018 patient is alert and oriented 3. Creatinine trending down to 1.90 bun 30. white blood cell also trending down to 13.8. Patient remains on Rocephin for urinary tract infection. Patient remains on IV Lasix 60 mg every 12 hours. This time patient denies chest pain or shortness of breath. Patient denies nausea vomiting or diarrhea. Patient denies any urinary burning or frequency. On 12/09/2018 patient was seen and examined on the medical floor he is alert and oriented 3 in no apparent distress he denies any complaints at this time there is no fever or chills no headache or dizziness no chest pain no shortness of breath no cough no nausea or vomiting no abdominal pain no diarrhea and no urinary symptoms. On 12/10/2018 patient was seen on the medical floor, daughter at the bedside, he is alert and oriented 3 in no apparent distress, he denies any symptoms at this time there is no fever or chills no headache or dizziness no chest pain no shortness of breath no cough no nausea or vomiting no abdominal pain no diarrhea and no urinary symptoms diminished slightly more distended than yesterday Will monitor closely On 12/11/2018 patient is alert and oriented 3. Family at bedside. Patient underwent paracentesis in which 3.6 L was removed. Patient's white blood cell increasing to 20.3. Repeat chest x-ray ordered. Stool for C. diff ordered. Patient remains on Rocephin. Patient denies any chest pain or shortness of breath. Patient denies any upper respiratory symptoms. Patient denies any burning or frequency. Patient denies any nausea or vomiting. On 12/12/2018 patient is alert and oriented 3. Infectious disease following. Diflucan was given per ID. Awaiting ascitic fluid cell count from paracentesis. At this time patient denies chest pain or shortness of breath. Patient denies any nausea vomiting or diarrhea. Patient denies any urinary burning or frequency. On 12/13/2018 patient is alert and oriented 3. CT of abdomen completed per infectious disease. White blood cell is trending down to 17. Assessment patient denies chest pain or shortness breath. Patient denies nausea vomiting or diarrhea. Patient denies any urinary burning or frequency On 12/14/2017 patient is alert and oriented 3. Surgical services did evaluate patient based on CT results no surgical intervention planned at this time structure ruled out. Patient asymptomatic. Because case with infectious disease Dr. Zepeda. White blood cell is trending down to 15.3. Okay for discharge per ID patient to be discharged on Diflucan. Patient to be discharged to [facility] for rehab. At this time patient denies chest pain or shortness of breath. Patient denies nausea vomiting or diarrhea. Patient denies any urinary burning or frequency. I performed an examination of the patient and discussed their management with the Nurse Practitioner. I have reviewed the Nurse Practitioner's notes and agree with the documented findings and plan of care Patient Condition at Discharge: Stable Plan - Discharge Summary Discharge Rx Participant: No New Discharge Prescriptions: New Fluconazole [Diflucan] 200 mg PO DAILY 7 Days #7 tab Spironolactone [Aldactone] 50 mg PO BID tab Midodrine [ProAmatine] 5 mg PO AC-TID #0 tab Sodium Bicarbonate Tab 650 mg PO BID tab Acetaminophen Tab [Tylenol] 650 mg PO Q6HR PRN tab PRN Reason: Fever And/ Or Pain Continue Levothyroxine Sodium [Synthroid] 50 mcg PO DAILY Furosemide [Lasix] 60 mg PO BID Discontinued Spironolactone 100 mg PO DAILY Loperamide HCl [Imodium A-D] 2 - 4 mg PO QID PRN PRN Reason: Diarrhea Ondansetron HCl [Zofran] 8 mg PO Q8H PRN PRN Reason: Nausea Discharge Medication List Levothyroxine Sodium [Synthroid] 50 mcg PO DAILY 11/23/18 [History] Furosemide [Lasix] 60 mg PO BID 12/05/18 [History] Acetaminophen Tab [Tylenol] 650 mg PO Q6HR PRN tab 12/14/18 [Rx] Fluconazole [Diflucan] 200 mg PO DAILY 7 Days #7 tab 12/14/18 [Rx] Midodrine [ProAmatine] 5 mg PO AC-TID #0 tab 12/14/18 [Rx] Sodium Bicarbonate Tab 650 mg PO BID tab 12/14/18 [Rx] Spironolactone [Aldactone] 50 mg PO BID tab 12/14/18 [Rx] Follow up Appointment(s)/Referral(s): Shell Salamanca MD [Primary Care Provider] - 1-2 days Az Dudley MD [STAFF PHYSICIAN] - 01/09/19 1:30 pm (next paracentisis appt is december 21 @12:20pm) Activity/Diet/Wound Care/Special Instructions: Activity as tolerated diet heart healthy Patient will be DC'd to [facility] CBC and CMP within 7 days of arrival Discharge Disposition: TRANSFER TO SNF/ECF
[2018-12-14 12:02] VITALS: BP 111/72; PULSE 67; RESP 17; TEMP 97.9
--- NOTE | 2018-12-14 12:12 | PN ---
PROGRESS NOTE DATE OF SERVICE: 12/14/2018 REASON FOR FOLLOWUP: Leukocytosis. INTERVAL HISTORY: The patient is currently afebrile. Patient has been breathing comfortably. Denies having any chest pain or any cough. No nausea. No vomiting. No abdominal pain or any diarrhea. PHYSICAL EXAMINATION: Blood pressure 103/58 with a pulse of 91, temperature 98, he is 97% on room air. General description is an elderly male, lying in bed in no distress. RESPIRATORY SYSTEM: Unlabored breathing, clear to auscultation anteriorly. HEART: S1, S2. Regular rate and rhythm. ABDOMEN: Soft, no tenderness. LABS: Hemoglobin 11.2, white count 15.3, creatinine is 1.27. The peritoneal fluid culture is negative. Blood culture negative. Urine is negative. DIAGNOSTIC IMPRESSION AND PLAN: Patient with leukocytosis, possibly reactive or possible oral pharyngitic Ruth in this patient who has received antibiotic and risk of yeast infection. His white count responded to the Diflucan. Will recommend to keep the patient on Diflucan 200 mg daily for about a week with close outpatient followup. Plan of care was discussed with the discharging physician. ALEXIS / RACHANA: [id number] / SHAWNA
== END 2018-12-14 15:49 | DRG 683 ==
LOC: EC 16:31 → 3NMEDONC 18:26
PROVIDERS: ADMIT Internal Medicine; ATTEND Internal Medicine
PROC: 0W9G3ZZ Drainage of Peritoneal Cavity, Percutaneous Approach (ICD-10-PCS; principal; 2018-12-11)
DX: N17.0 Acute kidney failure with tubular necrosis (principal); N39.0 Urinary tract infection, site not specified; K76.6 Portal hypertension; K80.10 Calculus of gallbladder with chronic cholecystitis without obstruction; E87.2 Acidosis; N18.9 Chronic kidney disease, unspecified; T50.2X5A Adverse effect of carbonic-anhydrase inhibitors, benzothiadiazides and other diuretics, initial encounter; Z79.890 Hormone replacement therapy; Z79.899 Other long term (current) drug therapy; Z86.73 Personal history of transient ischemic attack (TIA), and cerebral infarction without residual deficits; Z87.442 Personal history of urinary calculi; Z96.641 Presence of right artificial hip joint; D69.6 Thrombocytopenia, unspecified; E03.9 Hypothyroidism, unspecified; E87.6 Hypokalemia; E87.70 Fluid overload, unspecified; G47.33 Obstructive sleep apnea (adult) (pediatric); I12.9 Hypertensive chronic kidney disease with stage 1 through stage 4 chronic kidney disease, or unspecified chronic kidney disease; K70.31 Alcoholic cirrhosis of liver with ascites; K72.90 Hepatic failure, unspecified without coma; Z66 Do not resuscitate; F10.11 Alcohol abuse, in remission; Z80.0 Family history of malignant neoplasm of digestive organs
CPT/HCPCS: 36415; 49083; 70450; 71046; 74176; 76770; 76937; 80048; 80053; 80074; 81001; 82042; 82103; 82140; 82150; 82248; 82390; 82945; 83516; 83690; 83735; 84132; 84145; 84157; 85025; 85027; 85610; 86038; 86376; 87040; 87070; 87075; 87086; 87205; 87324; 88108; 88305; 89050; 93005; 93970; 96360; 96361; 99284

== ENCOUNTER → 2018-12-05 | Day surgery (SDC) | payer MEDICARE ==
[2018-12-05 13:39] VITALS: RESP 20; TEMP 97.5
[2018-12-05 13:54] LABS: Albumin 2.9 g/dL (3.5-5.0); Calcium 8.6 mg/dL (8.4-10.2); Total Bilirubin 2.4 mg/dL (0.2-1.3)
[2018-12-05 13:55] LABS: INR 1.3 (<1.2); Prothrombin Time 13.3 sec (9.0-12.0)
[2018-12-05 14:01] LABS: Potassium 3.7 mmol/L (3.5-5.1)
[2018-12-05 14:08] LABS: HCT 30.4 % (39.0-53.0); MCH 37.4 pg (25.0-35.0); MCHC 32.7 g/dL (31.0-37.0); MCV 114.5 fL (80.0-100.0); Macrocytosis Marked; Mean Platelet Volume 8.5; RBC 2.65 m/uL (4.30-5.90); RDW 13.5 % (11.5-15.5); WBC 13.3 k/uL (3.8-10.6)
[2018-12-05 14:11] LABS: HGB 9.9 gm/dL (13.0-17.5); Platelet Count 94 k/uL (150-450)
[2018-12-05] MEDS: ALBUMIN HUMAN 25% 50 ML in EMPTY BAG 1 BAG IVPB SCH ×4 (14:56→15:37)
--- NOTE | 2018-12-05 15:24 | US ---
EXAMINATION TYPE: US guide vascular access DATE OF EXAM: 12/05/2018 HISTORY: Needs IV access for albumin therapy. PROCEDURE: Maximal barrier technique utilized. The skin overlying the right antecubital vein was localized with ultrasound and the vein was noted to be compressible and patent by ultrasound and ultrasound image w as obtained and submitted on patient's chart. Ultrasound used with sterile technique. Under direct u ltrasound guidance a 22-gauge Angiocath was advanced into the vein and fixed in place. Catheter was aspirated and flushed with sterile saline. Hemostasis achieved. Catheter fixed in place. No immedi ate complication. IMPRESSION: Ultrasound-guided venipuncture, this procedure performed by the undersigned.
[2018-12-05 16:10] VITALS: BP 118/54; PULSE 76
--- NOTE | 2018-12-05 18:44 | US ---
EXAMINATION TYPE: US paracentesis abd w/image DATE OF EXAM: 12/05/2018 COMPARISON: NONE HISTORY: Ascites. PROCEDURE: Maximal barrier technique was utilized. The skin overlying a suitable pocket of fluid was localized with ultrasound and the overlying skin was prepped and draped. Ultrasound was utilized with sterile technique. Lidocaine was used for local anesthesia and a skin gm made with a scalpel. Catheter was advanced under direct ultrasound guidance into a suitable pocket of fluid and approximately 8.6 liter s of serous fluid were removed. Catheter was withdrawn and hemostasis achieved. There is no immedia te complication; the patient is discharged in stable condition. IMPRESSION: STATUS POST ULTRASOUND GUIDED PARACENTESIS FOR PALLIATION AND DIAGNOSIS OF ASCITES. THI S PROCEDURE WAS PERFORMED BY THE UNDERSIGNED. Specimen obtained for laboratory analysis.
[2018-12-05 19:56] LABS: Appearance,BF Hazy; Color,BF Yellow
[2018-12-05 21:00] LABS: Nucleated Cells, Body Fluid 16 /uL; RBC, Body Fluid 53 /uL
[2018-12-06 00:35] LABS: Total Protein, Body Fluid 1210 mg/dL
[2018-12-06 01:13] LABS: Albumin, Fluid Source Peritoneal Fluid
[2018-12-06 11:48] LABS: Liver/Kidney Microsome Antibod 0.9 UNITS (<=20)
== END | disposition home or self-care (01) ==
LOC: RADPROMAIN 11:47
PROVIDERS: ATTEND Internal Medicine
DX: R18.8 Other ascites (principal)
CPT/HCPCS: 86376; 88108; 88305; 80053; 80074; 82042; 89050; 85027; 85610; 83516 ×2; 82103; 82390; 86038; 87070; 87205; 87075; 82945; 84157; 36415; 76937; 49083; P9047

== ENCOUNTER 2018-12-21 11:41 | Day surgery (SDC) | payer MEDICARE ==
[2018-12-21 12:35] VITALS: RESP 20
[2018-12-21 12:57] LABS: Platelet Count 138 k/uL (150-450)
[2018-12-21 13:03] LABS: INR 1.4 (<1.2); Prothrombin Time 14.2 sec (9.0-12.0)
[2018-12-21] MEDS: ALBUMIN HUMAN 25% 50 ML in EMPTY BAG 1 BAG IVPB SCH ×3 (13:27→15:04)
[2018-12-21 15:07] VITALS: BP 106/53; PULSE 81
--- NOTE | 2018-12-21 16:30 | US ---
EXAMINATION TYPE: US paracentesis abd w/image DATE OF EXAM: 12/21/2018 COMPARISON: NONE HISTORY: Ascites. PROCEDURE: Maximal barrier technique was utilized. The skin overlying a suitable pocket of fluid was localized with ultrasound and the overlying skin was prepped and draped. Ultrasound was utilized with sterile technique. Lidocaine was used for local anesthesia and a skin gm made with a scalpel. Catheter was advanced under direct ultrasound guidance into a suitable pocket of fluid and approximately 5.9 liter s of serous fluid were removed. Catheter was withdrawn and hemostasis achieved. There is no immedia te complication; the patient is discharged in stable condition. IMPRESSION: STATUS POST ULTRASOUND GUIDED PARACENTESIS FOR PALLIATION OF ASCITES. THIS PROCEDURE WA S PERFORMED BY THE UNDERSIGNED.
== END 2018-12-21 15:20 ==
LOC: RADPROMAIN 11:41
PROVIDERS: ATTEND Nurse Practitioner
DX: R18.8 Other ascites (principal); K74.60 Unspecified cirrhosis of liver
CPT/HCPCS: 82565; 85049; 85610; 36415; 49083; P9047

== ENCOUNTER 2019-01-04 11:26 | Day surgery (SDC) | payer MEDICARE ==
[2019-01-04 12:31] VITALS: RESP 20; TEMP 97.4
[2019-01-04 13:22] LABS: INR 1.2 (<1.2); Prothrombin Time 12.6 sec (9.0-12.0)
[2019-01-04 13:24] LABS: Mean Platelet Volume 7.6; Platelet Count 198 k/uL (150-450)
[2019-01-04] MEDS: ALBUMIN HUMAN 25% 50 ML in EMPTY BAG 1 BAG IVPB SCH ×3 (13:56→14:36)
[2019-01-04 14:58] VITALS: BP 103/50; PULSE 80
--- NOTE | 2019-01-04 16:43 | US ---
EXAMINATION TYPE: US paracentesis abd w/image DATE OF EXAM: 01/04/2019 COMPARISON: NONE HISTORY: Ascites. PROCEDURE: Maximal barrier technique was utilized. The skin overlying a suitable pocket of fluid was localized with ultrasound and the overlying skin was prepped and draped. Ultrasound was utilized with sterile technique. Lidocaine was used for local anesthesia and a skin gm made with a scalpel. Catheter was advanced under direct ultrasound guidance into a suitable pocket of fluid and approximately 6.2 liter s of serous fluid were removed. Catheter was withdrawn and hemostasis achieved. There is no immedia te complication; the patient is discharged in stable condition. IMPRESSION: STATUS POST ULTRASOUND GUIDED PARACENTESIS FOR PALLIATION OF ASCITES. THIS PROCEDURE WA S PERFORMED BY THE UNDERSIGNED.
== END 2019-01-04 15:00 | disposition home or self-care (01) ==
LOC: RADPROMAIN 11:26
PROVIDERS: ATTEND Internal Medicine
DX: R18.8 Other ascites (principal)
CPT/HCPCS: 82565; 85049; 85610; 36415; 49083; P9047

== ENCOUNTER → 2019-01-10 | Outpatient (CLI) | payer MEDICARE | END | disposition home or self-care (01) | LOC: LABWHC1 11:14 | PROVIDERS: ATTEND Internal Medicine Infectious Disease | DX: Z53.9 Procedure and treatment not carried out, unspecified reason (principal) ==

== ENCOUNTER 2019-01-22 11:46 | Day surgery (SDC) | payer MEDICARE ==
[2019-01-22 12:46] LABS: Mean Platelet Volume 7.8; Platelet Count 181 k/uL (150-450)
[2019-01-22 12:55] LABS: INR 1.1 (<1.2); Prothrombin Time 11.2 sec (9.0-12.0)
[2019-01-22 12:58] VITALS: RESP 18; TEMP 97.7
[2019-01-22] MEDS: ALBUMIN HUMAN 25% 50 ML in EMPTY BAG 1 BAG IVPB SCH ×3 (13:26→15:23)
[2019-01-22 15:16] VITALS: BP 102/60; PULSE 84
--- NOTE | 2019-01-22 15:49 | US ---
Therapeutic paracentesis. DATE OF EXAM: 01/22/2019 CLINICAL HISTORY: Ascites The procedure was discussed with the patient. The risks, complications, benefits, and alternatives we re discussed and any questions were answered. Informed consent was obtained. The patient was placed s upine on the ultrasound table and prepped and draped in the usual sterile fashion. All elements of maximal barrier technique were utilized. Under ultrasound guidance, access into the right lower quadrant was obtained, via the paracentesis catheter system and direct ultrasound guidanc e. Approximately 6.7 liters of straw-colored fluid was removed. The patient was stable throughout the pr ocedure and remained stable upon discharge from Department of Radiology. IMPRESSION: Successful therapeutic paracentesis under ultrasound guidance.
== END 2019-01-22 15:15 | disposition home or self-care (01) ==
LOC: RADPROMAIN 11:46
PROVIDERS: ATTEND Internal Medicine
DX: R18.8 Other ascites (principal)
CPT/HCPCS: 82565; 85049; 85610; 36415; 49083; P9047

== ENCOUNTER → 2019-01-25 | Outpatient (CLI) | payer MEDICARE ==
[2019-01-25 16:13] LABS: Basophils % (A) 0 %; Eosinophils # (A) 0.3 k/uL (0-0.7); Eosinophils % (A) 3 %; HCT 31.1 % (39.0-53.0); HGB 9.9 gm/dL (13.0-17.5); Lymphocytes # (A) 1.5 k/uL (1.0-4.8); Lymphocytes % (A) 16 %; MCH 34.4 pg (25.0-35.0); MCV 107.7 fL (80.0-100.0); Macrocytosis Moderate; Mean Platelet Volume 7.6; Monocytes # (A) 0.6 k/uL (0-1.0); Monocytes % (A) 6 %; Neutrophils # (A) 7.1 k/uL (1.3-7.7); Neutrophils % (A) 74 %; Platelet Count 151 k/uL (150-450); RBC 2.88 m/uL (4.30-5.90); RDW 14.3 % (11.5-15.5); WBC 9.6 k/uL (3.8-10.6)
[2019-01-25 19:33] LABS: African American GFR (CKD) 39.9 (60.0-200.0); Albumin 2.7 g/dL (3.80-4.90); Albumin/Globulin Ratio 0.87 (1.60-3.17); Anion Gap 9.5 mmol/L (4.00-12.00); BUN/Creat Ratio 14.21 Ratio (12.00-20.00); Calcium 8.6 mg/dL (8.7-10.3); Carbon Dioxide 23.5 mmol/L (21.6-31.8); Globulin 3.1 g/dL (1.6-3.3); Potassium 4.9 mmol/L (3.5-5.5); Total Bilirubin 2.1 mg/dL (0.2-1.2); Total Protein 5.8 g/dL (6.2-8.2)
== END | disposition home or self-care (01) ==
LOC: LABWHC1 13:44
PROVIDERS: ATTEND Physician Assistant
DX: K74.60 Unspecified cirrhosis of liver (principal)
CPT/HCPCS: 36415; 80053; 82105; 85025

== ENCOUNTER 2019-02-13 11:39 | Day surgery (SDC) | payer MEDICARE ==
[2019-02-13 12:59] VITALS: RESP 16; TEMP 97.7
[2019-02-13 13:03] LABS: Platelet Count 160 k/uL (150-450)
[2019-02-13 13:08] LABS: INR 1.2 (<1.2); Prothrombin Time 12.1 sec (9.0-12.0)
[2019-02-13] MEDS: ALBUMIN HUMAN 25% 50 ML in EMPTY BAG 1 BAG IVPB SCH ×4 (13:52→16:21)
--- NOTE | 2019-02-13 14:35 | US ---
Mid LINE PLACEMENT: HISTORY: IV access prior to procedure PROCEDURE: Ultrasound guidance mid line placement. COMPLICATIONS: None ANESTHESIA: 1. 1% Lidocaine locally. FINDINGS/TECHNIQUE: The procedure was explained to the patient. The risks, complications, benefits and alternatives were discussed and any questions were answered. Informed consent was obtained. The patient was placed supine on the fluoroscopic table and prepped and draped in the usual sterile fash ion. Utilizing a 21 gauge needle and sonographic and fluoroscopic guidance, access in the left basi lic vein was achieved and there is placement of a 0.018 guidewire. The vein is patent. A 4-F sheath was placed over the guidewire. The guidewire and dilator were removed and a 4-F. Mid line was place d through the sheath with the tip at the level of the axillary vein. The sheath was removed, the cat heter was flushed and sutured into position. The patient was stable throughout the procedure and rem ained stable upon discharge from the Department of Radiology. The vein puncture was patent under ultrasound. A calvo scale image was obtained to document patency of the vein punctured. All elements of the maximal barrier technique were utilized. IMPRESSION: Successful Mid line placement under ultrasound guidance.
[2019-02-13 16:12] VITALS: BP 111/51; PULSE 74
--- NOTE | 2019-02-14 10:18 | US ---
Therapeutic paracentesis. DATE OF EXAM: 02/13/2019 CLINICAL HISTORY: Ascites The procedure was discussed with the patient. The risks, complications, benefits, and alternatives we re discussed and any questions were answered. Informed consent was obtained. The patient was placed s upine on the ultrasound table and prepped and draped in the usual sterile fashion. All elements of maximal barrier technique were utilized. Under ultrasound guidance, access into the right lower quadrant was obtained, via the paracentesis catheter system and direct ultrasound guidanc e. Approximately 5.7 liters of straw-colored fluid was removed. The patient was stable throughout the pr ocedure and remained stable upon discharge from Department of Radiology. IMPRESSION: Successful therapeutic paracentesis under ultrasound guidance.
== END 2019-02-13 15:35 | disposition home or self-care (01) ==
LOC: RADPROMAIN 11:39
PROVIDERS: ATTEND Internal Medicine
DX: R18.8 Other ascites (principal)
CPT/HCPCS: 49083; 82565; 85049; 85610; 76937; P9047